=== PATIENT | female | born 1945 | race Caucasian/White ===

== ENCOUNTER 2018-11-10 05:36 | Day surgery (SDC) | payer OTHER ==
[2018-11-05 14:47] VITALS: BMI 27.1
[2018-11-10] MEDS ORDERED: oxyCODONE HCL 5 MG TABLET PO PRN (10:19)
[2018-11-10] MEDS ORDERED: ONDANSETRON 4 MG/2 ML VIAL IVPUSH PRN (10:19)
[2018-11-10] MEDS ORDERED: ACETAMINOPHEN 500 MG TABLET (FP) PO PRN (10:19)
[2018-11-10] MEDS ORDERED: LACTATED RINGERS SOLUTION 1,000 ML IV SCH (10:30)
[2018-11-10] MEDS ORDERED: LIDOCAINE HCL/PF 2% SDV 5ML VIAL ONE (10:40)
[2018-11-10] MEDS ORDERED: PROPOFOL 20 ML ONE (10:40)
[2018-11-10] MEDS ORDERED: MIDAZOLAM HCL 2 MG/2 ML SINGLE DOSE VIAL ONE (10:41)
[2018-11-10] MEDS ORDERED: KETOROLAC TROMETHAMINE 30 MG/1 ML VIAL ONE (11:28)
[2018-11-10] MEDS ORDERED: hydrALAZINE HCL 20 MG/ML VIAL IM ONE (11:53)
[2018-11-10] MEDS ORDERED: hydrALAZINE HCL 20 MG/ML VIAL IVPUSH ONE (11:53)
[2018-11-10] MEDS ORDERED: ACETAMINOPHEN INJECTION 100 ML IVPB ONE (12:27)
[2018-11-10] MEDS ORDERED: ACETAMINOPHEN 1000 MG/100 ML VIAL (NON FORMULARY) IVPB ONE (12:30)
[2018-11-10] MEDS ORDERED: ACETAMINOPHEN 1000 MG/100 ML VIAL (NON FORMULARY) IVPB PRN (13:19)
--- NOTE | 2018-11-10 13:27 | OP ---
Operative Note - Note: Operative Date: 11/10/18 Pre-Operative Diagnosis: Endometrial hyperpasia Operation: Hysteroscopy. HYsteroscopic myomectomy. Hysteroscopic lysis of adhesions. Suction DC Findings: endometrial adhesions endometrial polyp/myoma Post-Operative Diagnosis: Same as Pre-op Surgeon: Arely Johnson Anesthesia: General Estimated Blood Loss (mls): 20
[2018-11-10] MEDS ORDERED: ACETAMINOPHEN 325 MG TABLET (FP) PO PRN (13:28)
[2018-11-10] MEDS ORDERED: IBUPROFEN 400 MG TABLET (FP) PO PRN (13:28)
--- NOTE | 2018-11-10 13:28 | HP ---
History & Physical Update - History History: No Change - Physical Physical: No Change - Assessment Assessment: No Change - Plan Plan: No Change
[2018-11-10 16:24] VITALS: BP 132/61; PULSE 77; TEMP 97.8
--- NOTE | 2018-11-10 20:54 | OP ---
DATE OF OPERATION: 11/10/2018 PREOPERATIVE DIAGNOSIS: Endometrial hyperplasia. OPERATION: Hysteroscopic lysis of adhesions, hysteroscopy, and hysteroscopic myomectomy, also suction dilatation and curettage. POSTOPERATIVE DIAGNOSIS: Submucosal myoma. SURGEON: Arely Johnson MD ANESTHESIA: General. ANESTHESIOLOGIST: Emmy Carty MD PROCEDURE: Patient was taken to the operating room, placed in dorsal lithotomy position, prepped and draped in usual sterile fashion. A timeout was performed in accordance with hospital regulation. Speculum was placed in the vagina. Anterior lip of the cervix was grasped with single-tooth tenaculum. Cervix then dilated to accommodate the diagnostic hysteroscope. Visualization of the endometrial cavity revealed endometrial polyp, also uterine adhesions. Lysis of uterine adhesions was then performed, and a myoma was also removed using sharp technique. Suction D&C was then performed. Endometrial cavity appeared to be improved. All instruments were then removed. Patient had tolerated the procedure well. Estimated blood loss was 20 mL. ARELY JOHNSON M.D. AMALIA/[id number]
--- NOTE | 2018-11-11 17:09 | PATH ---
Surgical Pathology Report Patient Name: WAYNE SLATER [facility]. Rec. #: [id number] /Age/Gender: 1945 (Age: 73) / F Account: [id number] Location: [facility] SURGICAL Taken: 11/10/2018 Received: 11/10/2018 Reported: 11/11/2018 Physicians: Arely Johnson M.D. Specimen(s) Received A: ENDOMETRIAL CURETTINGS B: MYOMA Clinical History Endometrial hyperplasia, myoma and adhesions of uterus Final Diagnosis A. ENDOMETRIAL CURETTINGS, DILATION AND CURETTAGE: SCANT ATROPHIC ENDOMETRIUM ADMIXED WITH BLOOD. B. 'MYOMA'/ENDOMETRIAL POLYP, HYSTEROSCOPIC MYOMECTOMY: ENDOMETRIAL POLYP. Electronically Signed Francisca Jon M.D. Gross Description A. Received in formalin labeled "endometrial curettings," is a 1.0 x 0.9 x 0.2 cm aggregate of sullivan red soft tissue fragments. The formalin is filtered and the specimen is entirely submitted in one cassette. B. Received in formalin labeled "myoma," is a less than 1 g, 0.7 cm in greatest dimension sullivan soft tissue fragment. The specimen is submitted in toto in one cassette. 11/10/201811/10/2018
== END 2018-11-10 15:45 | disposition home or self-care (01) ==
LOC: JASU-SURG 05:36
PROVIDERS: ATTEND Obstetrics & Gynecology
PROC: 0UDB7ZX Extraction of Endometrium, Via Natural or Artificial Opening, Diagnostic (ICD-10-PCS; 2018-11-10)
PROC: 0UB98ZZ Excision of Uterus, Via Natural or Artificial Opening Endoscopic (ICD-10-PCS; principal; 2018-11-10 10:00)
PROC: 0UN98ZZ Release Uterus, Via Natural or Artificial Opening Endoscopic (ICD-10-PCS; 2018-11-10 10:00)
DX: D25.0 Submucous leiomyoma of uterus (principal); N85.6 Intrauterine synechiae
CPT/HCPCS: 82962; 88305-TC; 94760; J0131

== ENCOUNTER 2019-05-28 14:59 | Inpatient (IN) | payer OTHER ==
--- NOTE | 2019-05-28 15:17 | PDOC ---
Rapid Medical Evaluation Chief Complaint: Abnormal Lab Results (Outside) Time Seen by Provider: 05/28/19 15:11 Medical Evaluation: Allergies Allergy/AdvReac Type Severity Reaction Status Date / Time No Known Allergies Allergy Verified 05/28/19 15:05 05/28/19 15:12 I have performed a brief in-person evaluation of this patient. The patient presents with a chief complaint of: sent from PMD due to "abnormal blood" Pertinent physical exam findings: well appearing , complaints of chronic back pain , I have ordered the following: labs The patient will proceed to the ED for further evaluation. 05/28/19 15:14 05/28/19 15:21
[2019-05-28 16:30] LABS: EPI CELLS 1.2 /HPF (0-5/HPF); HYALINE CASTS 1 /lpf (0-8); URINE APPEARANCE CLEAR; URINE BACTERIA 63.8 /hpf (NEGATIVE); URINE BILIRUBIN NEGATIVE (NEGATIVE); URINE COLOR YELLOW; URINE GLUCOSE (UA) NEGATIVE (NEGATIVE); URINE KETONE NEGATIVE (NEGATIVE); URINE LEUK ESTERASE TRACE (NEGATIVE); URINE NITRITE NEGATIVE (NEGATIVE); URINE PROTEIN NEGATIVE (NEGATIVE); URINE RBC 1 /hpf (0-4); URINE UROBILINOGEN 0.2 mg/dL (0.2-1.0); URINE WBC 6 /hpf (0-5)
[2019-05-28 16:31] LABS: BASO % 0.7 % (0-2.0); EOS % 5.8 % (0-4.5); HEMATOCRIT 29.4 % (32.4-45.2); HEMOGLOBIN 9.6 GM/dL (10.7-15.3); LYMPH % 28.2 % (8-40); MCHC 32.6 g/dl (32.0-36.0); MEAN CELL VOLUME 85.9 fl (80-96); MEAN PLT VOLUME 7.8 fl (7.5-11.1); MONO % 14.5 % (3.8-10.2); NEUT % 50.8 % (42.8-82.8); PLATELET COUNT 225 K/MM3 (134-434); RBC 3.42 M/mm3 (3.60-5.2); RDW 15.3 % (11.6-15.6)
--- NOTE | 2019-05-28 16:43 | PDOC ---
History of Present Illness - General Chief Complaint: Abnormal Lab Results (Outside) Stated Complaint: SENT BY PCP Time Seen by Provider: 05/28/19 15:11 - History of Present Illness Initial Comments: 05/28/19 17:47 The patient is a 74 year old female with a history of HTN, HLD, DM who presents for evaluation of abnormal lab values. The patient reports that she was sent to the ED for further evaluation by her tire bladder maker Dr. Guerrero for abnormal outpatient labs. The patient states that she has been experiencing some dizziness but otherwise denies any other symptoms. Per Dr. Guerrero the patient was extremely hypercalcemic to 13 on an outpatient basis. The patient notes that she has had high calcium in the past, but has never been worked up for it. She otherwise denies fevers, chills, headache, SOB, chest pain, nausea , vomiting, abdominal pain, or changes with urination or bowel movements. Past History - Past Medical History Allergies/Adverse Reactions: Allergies Allergy/AdvReac Type Severity Reaction Status Date / Time No Known Allergies Allergy Verified 05/28/19 15:05 Home Medications: Ambulatory Orders Latanoprost 0.005% Eye Drops [Xalatan 0.005% Eye Drops -] 1 drop OU HS 01/11/14 Nebivolol HCl [Bystolic] 20 mg PO DAILY 01/11/14 Brinzolamide [Azopt] 1 drop OD BID 06/29/16 Clonidine HCl [Clonidine HCl ER] 0.1 mg PO BID 06/29/16 Valsartan [Diovan] 320 mg PO DAILY 09/17/16 Allopurinol [Zyloprim -] 100 mg PO DAILY 11/05/18 Potassium Citrate [Potassium Citrate ER] 15 meq PO BID 11/05/18 Cholecalciferol (Vitamin D3) [Vitamin D3 -] 50,000 iu PO DAILY 05/28/19 Ferrous Sulfate 325 mg PO DAILY 05/28/19 Gabapentin 100 mg PO TID 05/28/19 Glipizide 10 mg PO DAILY 05/28/19 Linagliptin [Tradjenta] 5 mg PO DAILY 05/28/19 Multivitamins [Tab-A-Vit -] 1 tab PO DAILY 05/28/19 Tramadol HCl 50 mg PO BID PRN 05/28/19 Anemia: No Asthma: No Cancer: No Cardiac Disorders: No CVA: No COPD: No CHF: No Dementia: No Diabetes: Yes (DIET CONTROLLED) GI Disorders: Yes (Acid Reflux) Disorders: No HTN: Yes Hypercholesterolemia: Yes Liver Disease: Yes Seizures: No Thyroid Disease: No - Surgical History Abdominal Surgery: No Cardiac Surgery: No Cholecystectomy: No Lung Surgery: No Neurologic Surgery: No Orthopedic Surgery: No - Suicide/Smoking/Psychosocial Hx Smoking History: Never smoked Have you smoked in the past 12 months: No Hx Alcohol Use: No Drug/Substance Use Hx: No Substance Use Type: None Hx Substance Use Treatment: No Review of Systems - Review of Systems Comments:: 05/28/19 17:49 Constitutional: No fevers, chills, fatigue, malaise HEENT: No Rhinorrhea, nasal congestion, visual changes Cardiovascular: No chest pain, syncope, palpitations, lightheadedness Respiratory: No Cough, SOB, Hemoptysis, Gastrointestinal: No Abdominal pain, Nausea, Vomiting, Constipation, Diarrhea, Melena Genitourinary: No Dysuria, Frequency, Urgency, Hesitancy, Hematuria, Flank pain Musculoskeletal: No Myalgia, arthralgia Skin: No rashes, itching, bruising, pallor Neurologic: Dizziness, No Headache, Numbness, Weakness, or Tingling Psychiatric: No Hallucinations. No SI or HI *Physical Exam - Vital Signs Last Vital Signs Temp Pulse Resp BP Pulse Ox 98.6 F 73 16 130/51 L 100 05/28/19 15:05 05/28/19 15:05 05/28/19 15:05 05/28/19 15:05 05/28/19 15:05 - Physical Exam Comments: 05/28/19 17:51 General Appearance: Nourished. No Apparent Distress HEENT: EOMI, ZACHERY. No Pharyngeal Erythema, Tonsillar Exudate, Tonsillar Erythema Neck: No Cervical Lymphadenopathy Respiratory/Chest: Lungs Clear, Normal Breath Sounds. No Crackles, Rales, Rhonchi, Wheezing Cardiovascular: Regular Rhythm, Regular Rate. No Murmur, Gallops, Rubs Gastrointestinal/Abdominal: Normal Bowel Sounds, Soft. No Guarding, Rebound, Tenderness Musculoskeletal: No CVA Tenderness Extremity: Normal Capillary Refill Integumentary: Normal Color, Dry, Warm Neurologic: tack cleaner II-XII NML intact, Fully Oriented, Alert, Normal Mood/Affect, Normal Response, Normal Reflexes. Heart Score/ECG Review #1 ECG reviewed & interpreted by me at: 18:16 General ECG Interpretation: Sinus Rhythm, Normal Rate, Normal Intervals, No acute ischemic changes 05/28/19 18:16 HR 62 SC 178 QRS 88 QTc 379 ED Treatment Course - LABORATORY CBC & Chemistry Diagram: 05/28/19 15:50 05/28/19 15:50 - ADDITIONAL ORDERS Additional order review: Laboratory Results 05/28/19 15:50 Urine Color Yellow Urine Appearance Clear Urine pH 7.0 Ur Specific [place] 1.010 Urine Protein Negative Urine Glucose (UA) Negative Urine Ketones Negative Urine Blood Negative Urine Nitrite Negative Urine Bilirubin Negative Urine Urobilinogen 0.2 Ur Leukocyte Esterase Trace Urine WBC (Auto) 6 Urine RBC (Auto) 1 Urine Casts (Auto) 1 U Epithel Cells (Auto) 1.2 Urine Bacteria (Auto) 63.8 05/28/19 15:50 RBC 3.42 L MCV 85.9 MCHC 32.6 RDW 15.3 MPV 7.8 D Neutrophils % 50.8 Lymphocytes % 28.2 D Monocytes % 14.5 H Eosinophils % 5.8 H Basophils % 0.7 Medical Decision Making - Medical Decision Making 05/28/19 17:58 The patient is a 74 year old female with a history of HTN, HLD, DM who presents for evaluation of abnormal lab values. Given the patient's history and physical exam, we will obtain a cbc, cmp, mag, phos, ua, chest plain film, ekg to evaluate further. CBC demonstrates a hgb of 9.6. CMP demonstrates a Calcium of 14 with a creatinine of 2.8. UA is unremarkable. Chest plain film does not demonstrate an acute process. We discussed the case with Dr. Guerrero who recommended IV fluids and Calcitonin. We discussed the case with Dr. Vogel with hematology who is aware of the case and will evaluate. The patient will require admission for further management. 05/28/19 18:16 We discussed the case with the admitting team who accepted the patient for admission. *DC/Admit/Observation/Transfer Diagnosis at time of Disposition: Hypercalcemia - Discharge Dispostion Condition at time of disposition: Stable Decision to Admit order: Yes - Referrals - Patient Instructions - Post Discharge Activity
[2019-05-28 16:47] LABS: INR 1.09 (0.83-1.09); PROTHROMBIN TIME (PATIENT) 12.9 SEC (9.7-13.0)
[2019-05-28 16:49] LABS: MAGNESIUM 2.2 mg/dL (1.8-2.4); PHOSPHOROUS 4.8 mg/dL (2.5-4.9)
[2019-05-28 16:56] LABS: ALBUMIN 3.5 g/dl (3.4-5.0); BILIRUBIN,TOTAL 0.2 mg/dL (0.2-1); BLOOD UREA NITROGEN 48.2 mg/dL (7-18); CREATININE 2.8 mg/dL (0.55-1.3); POTASSIUM 4.3 mmol/L (3.5-5.1)
[2019-05-28 16:58] LABS: CALCIUM 14.3 mg/dL (8.5-10.1)
[2019-05-28] MEDS ORDERED: SODIUM CHLORIDE 1,000 ML IV STA (17:24)
[2019-05-28] MEDS ORDERED: CALCITONIN - SALMON SYNTHETIC 400 UNIT/2 ML VIAL SQ ONE (17:45)
--- NOTE | 2019-05-28 17:54 | PDOC ---
Documentation entered by Marquise Ambriz SCRIBE, acting as scribe for Jen Beth DO. Jen Beth DO: This documentation has been prepared by the Pb armenta Daniel, SCRIBE, under my direction and personally reviewed by me in its entirety. I confirm that the documentation accurately reflects all work, treatment, procedures, and medical decision making performed by me. Attending Attestation - Resident Resident Name: Marquise Toribio - ED Attending Attestation I have performed the following: I have examined & evaluated the patient, The case was reviewed & discussed with the resident, I agree w/resident's findings & plan, Exceptions are as noted - HPI HPI: 05/28/19 18:09 The patient is a 74 year old female with a past medical history of HTN, HLD, and diabetes here today for evaluation of abnormal lab values. Patient was sent in for evaluation by Dr. Hernandez. As per Dr. Hernandez, the patient reports the patient had a calcium of 13. As per the patient, she has been hypercalcemic in the past and currently endorses some dizziness. Patient denies headache. Denies fever, chills. Denies chest pain, shortness of breath. Denies nausea, vomiting, diarrhea, abdominal pain. Allergies: NKA PCP: Taylor Kincaid Junior Estimator: Teena Hernandez - Physicial Exam PE: 05/28/19 18:09 Constitutional: Awake, alert, oriented. No acute distress. Head: Normocephalic. Atraumatic Eyes: PERRL. EOMI. Conjunctivae are not pale. ENT: +dry mucous membranes. Posterior pharynx without exudates or erythema. Uvula midline. Neck: Supple. Full ROM. No lymphadenopathy. Cardiovascular: Regular rate. Regular rhythm. S1, S2 regular. Distal pulses are 2+ and symmetric. Pulmonary/Chest: No evidence of respiratory distress. Clear to auscultation bilaterally No wheezing, rales or rhonchi. Abdominal: Soft and non-distended. There is no tenderness. No rebound, guarding or rigidity. No organomegaly. No palpable masses. Good bowel sounds. Back: No CVA tenderness. Musculoskeletal: No edema. No cyanosis. No clubbing. Full range of motion in all extremities. Nocalf tenderness. Radial/pedal pulses are intact and 2+ bilaterally Skin: Skin is warm and dry. No petechiae. No purpura. Neurological: Alert and oriented to person, place, and time. Cranial nerves II -XII are grossly intact. Normal speech. Strength is grossly symmetric. No sensory deficits. Psychiatric: Good eye contact. Normal interaction, affect and behavior. - Medical Decision Making 05/28/19 17:50 I, Dr. Jen Beth, DO, attest that this document has been prepared under my direction and personally reviewed by me in its entirety. I further attest, that it accurately reflects all work, treatment, procedures and medical decision -making performed by me. 05/28/19 17:50 a/p: 74yo female sent by Dr. Hernandez for elevated calcium on outpt labs -pt denies complaints other than constipation and lightheaded -no n/v/d -no flank pain -no cp/sob -no dysuria -will repeat labs, ekg, cxr -pt will need admission 05/28/19 17:52 resident discussed the case with Dr. Hernandez who recommends calcitonin and ivf resident discussed the case with Dr. Rondon who agrees with plan ivf ordered calcium 14.3 hemoglobin was 9 ckd microblog sent to [facility] covering Dr. kincaid overnight. 05/28/19 18:23 resident discussed the case with Dr. Das who accepts pt to service Heart Score/ECG Review - ECG Intrepretation Comment:: 05/28/19 18:23 sinus at 62, nl axis, nl interval, no acute st/t wave findings
--- NOTE | 2019-05-28 18:58 | HP ---
CHIEF COMPLAINT: hypercalcemia- sent from office for abnormal lab values HISTORY OF PRESENT ILLNESS: 74 yo woman with hypercalcemia sent in from clinic for evaluation. She has no symptoms and she feels well. She has had hypercalcemia for the last 2 years. Took prednisone rx by Dr. Galarza in the past for suspected- sarcoidosis? Allergies: NKA PCP: Taylor Kincaid Horse Stud Manager: Teena Hernandez ER course was notable for: (1) ekg (2) cxr (3) Recent Travel: no PAST MEDICAL HISTORY: HTN, HLD, DM, hypercalcemia- 3 years? sarcoidosis? PAST SURGICAL HISTORY: uterine fibroid resection? left forearm surgery s/p trauma. Social History: Smoking: no Alcohol: no Drugs: no Family History: breast cancer in half-sister Allergies No Known Allergies Allergy (Verified 05/28/19 15:05) HOME MEDICATIONS: Home Medications Medication Instructions Recorded Latanoprost 0.005% Eye Drops 1 drop OU HS 01/11/14 [Xalatan 0.005% Eye Drops -] Nebivolol HCl [Bystolic] 20 mg PO DAILY 01/11/14 Brinzolamide [Azopt] 1 drop OD BID 06/29/16 Clonidine HCl [Clonidine HCl ER] 0.1 mg PO BID 06/29/16 Valsartan [Diovan] 320 mg PO DAILY 09/17/16 Allopurinol [Zyloprim -] 100 mg PO DAILY 11/05/18 Potassium Citrate [Potassium 15 meq PO BID 11/05/18 Citrate ER] Cholecalciferol (Vitamin D3) 50,000 iu PO DAILY 05/28/19 [Vitamin D3 -] Ferrous Sulfate 325 mg PO DAILY 05/28/19 Gabapentin 100 mg PO TID 05/28/19 Glipizide 10 mg PO DAILY 05/28/19 Linagliptin [Tradjenta] 5 mg PO DAILY 05/28/19 Multivitamins [Tab-A-Vit -] 1 tab PO DAILY 05/28/19 Tramadol HCl 50 mg PO BID PRN 05/28/19 REVIEW OF SYSTEMS CONSTITUTIONAL: Absent: fever, chills, diaphoresis, generalized weakness, malaise, loss of appetite, weight change HEENT: Absent: rhinorrhea, nasal congestion, throat pain, throat swelling, difficulty swallowing, mouth swelling, ear pain, eye pain, visual changes CARDIOVASCULAR: Absent: chest pain, syncope, palpitations, irregular heart rate, lightheadedness , peripheral edema RESPIRATORY: Absent: cough, shortness of breath, dyspnea with exertion, orthopnea, wheezing, stridor, hemoptysis GASTROINTESTINAL: Absent: abdominal pain, abdominal distension, nausea, vomiting, diarrhea, constipation, melena, hematochezia GENITOURINARY: Absent: dysuria, frequency, urgency, hesitancy, hematuria, flank pain, genital pain MUSCULOSKELETAL: Absent: myalgia, arthralgia, joint swelling, back pain, neck pain SKIN: Absent: rash, itching, pallor HEMATOLOGIC/IMMUNOLOGIC: Absent: easy bleeding, easy bruising, lymphadenopathy, frequent infections ENDOCRINE: Absent: unexplained weight gain, unexplained weight loss, heat intolerance, cold intolerance NEUROLOGIC: Absent: headache, focal weakness or paresthesias, dizziness, unsteady gait, seizure, mental status changes, bladder or bowel incontinence PSYCHIATRIC: Absent: anxiety, depression, suicidal or homicidal ideation, hallucinations. PHYSICAL EXAMINATION Vital Signs - 24 hr 05/28/19 15:05 Temperature 98.6 F Pulse Rate 73 Respiratory 16 Rate Blood Pressure 130/51 L O2 Sat by Pulse 100 Oximetry (%) GENERAL: Awake, alert, and fully oriented, in no acute distress. HEAD: Normal with no signs of trauma. EYES: Pupils equal, round and reactive to light, extraocular movements intact, sclera anicteric, conjunctiva clear. No lid lag. EARS, NOSE, THROAT: Ears normal, nares patent, oropharynx clear without exudates. Moist mucous membranes. NECK: Normal range of motion, supple without lymphadenopathy, JVD, or masses. LUNGS: Breath sounds equal, clear to auscultation bilaterally. No wheezes, and no crackles. No accessory muscle use. HEART: Regular rate and rhythm, normal S1 and S2 without murmur, rub or gallop. ABDOMEN: Soft, nontender, not distended, normoactive bowel sounds, no guarding, no rebound, no masses. MUSCULOSKELETAL: Normal range of motion at all joints. No bony deformities or tenderness. No CVA tenderness. UPPER EXTREMITIES: 2+ pulses, warm, well-perfused. No cyanosis. No clubbing. No peripheral edema, left forearm scar s/p surgery LOWER EXTREMITIES: 2+ pulses, warm, well-perfused. No calf tenderness. No peripheral edema. NEUROLOGICAL: Cranial nerves II-XII intact. Normal speech. Normal gait. PSYCHIATRIC: Cooperative. Good eye contact. Appropriate mood and affect. SKIN: Warm, dry, normal turgor, no rashes or lesions noted, normal capillary refill. Laboratory Results - last 24 hr 05/28/19 05/28/19 05/28/19 15:50 15:50 15:50 WBC 5.0 RBC 3.42 L Hgb 9.6 L Hct 29.4 L D MCV 85.9 MCH 28.0 MCHC 32.6 RDW 15.3 Plt Count 225 MPV 7.8 D Absolute Neuts (auto) 2.5 Neutrophils % 50.8 Lymphocytes % 28.2 D Monocytes % 14.5 H Eosinophils % 5.8 H Basophils % 0.7 Nucleated RBC % 0 PT with INR 12.90 INR 1.09 Sodium 139 Potassium 4.3 Chloride 106 Carbon Dioxide 26 Anion Gap 8 BUN 48.2 H Creatinine 2.8 H Est GFR (CKD-EPI)AfAm 18.38 Est GFR (CKD-EPI)NonAf 15.86 Random Glucose 118 H Calcium 14.3 H* Phosphorus Magnesium Total Bilirubin 0.2 AST 29 ALT 42 Alkaline Phosphatase 92 Total Protein 7.0 Albumin 3.5 Urine Color Urine Appearance Urine pH Ur Specific Terry Urine Protein Urine Glucose (UA) Urine Ketones Urine Blood Urine Nitrite Urine Bilirubin Urine Urobilinogen Ur Leukocyte Esterase Urine WBC (Auto) Urine RBC (Auto) Urine Casts (Auto) U Epithel Cells (Auto) Urine Bacteria (Auto) 05/28/19 05/28/19 15:50 16:00 WBC RBC Hgb Hct MCV MCH MCHC RDW Plt Count MPV Absolute Neuts (auto) Neutrophils % Lymphocytes % Monocytes % Eosinophils % Basophils % Nucleated RBC % PT with INR INR Sodium Potassium Chloride Carbon Dioxide Anion Gap BUN Creatinine Est GFR (CKD-EPI)AfAm Est GFR (CKD-EPI)NonAf Random Glucose Calcium Phosphorus 4.8 Magnesium 2.2 Total Bilirubin AST ALT Alkaline Phosphatase Total Protein Albumin Urine Color Yellow Urine Appearance Clear Urine pH 7.0 Ur Specific Terry 1.010 Urine Protein Negative Urine Glucose (UA) Negative Urine Ketones Negative Urine Blood Negative Urine Nitrite Negative Urine Bilirubin Negative Urine Urobilinogen 0.2 Ur Leukocyte Esterase Trace Urine WBC (Auto) 6 Urine RBC (Auto) 1 Urine Casts (Auto) 1 U Epithel Cells (Auto) 1.2 Urine Bacteria (Auto) 63.8 CXR, ekg reviewed ASSESSMENT/PLAN: #Hypercalcemia about 14 -adjusted for albumin - asymptomatic- should r/o malignancy and hyperthyroidism. Multiple myeloma is high on differential since patient Has reported history of sarcoidosis which may also contribute to hypercalcemia. Less likely to be vit D intoxication. -admit to med/surg -iv fluid hydration -calcitonin injection x1 given -send free calcium, phosphate, vit D, calcitriol, pth levels, ptrh -consider parathyroid scan if elevated pth level -ct abdomen/pelvis, chest - no contrast due to renal failure -upep, spep, kappa/lambda free chains -heme/onc, renal eval- kidney biopsy? -monitor ca levels closely #LESVIA on CKD- unknown underlying cause- HTN/ DM? R/o multiple myeloma. -avoid nsaids -i/o -daily weights -renal u/s -gentle IV fluid hydration #HTN -c/w home dose nibivolol, clonidine -avoid arb due to renal failure #DM -novolog sliding scale -a1c -diabetic diet -heparin sc for dvt ppx Visit type - Emergency Visit Emergency Visit: Yes Care time: The patient presented to the Emergency Department on the above date and was hospitalized for further evaluation of their emergent condition. - New Patient This patient is new to me today: Yes Date on this admission: 05/28/19 - Critical Care Critical Care patient: No
[2019-05-28] MEDS ORDERED: SODIUM CHLORIDE 1,000 ML IV SCH (19:00)
[2019-05-28] MEDS ORDERED: PATIENT'S OWN MEDICATION (NON-FORMULARY) (Brinzolamide [Azopt] 1 DROP) OD SCH (22:00)
[2019-05-28] MEDS ORDERED: PATIENT'S OWN MEDICATION (NON-FORMULARY) (Clonidine Hcl [Clonidine Hcl Er] 0.1 MG) PO SCH (22:00)
--- NOTE | 2019-05-28 22:38 | CONSULT ---
Consult - text type - Consultation Consultation Note: Patient seen and examined The patient is a 74 year old female with a history of HTN, HLD, DM who presents for evaluation of abnormal lab values. The patient reports that she was sent to the ED for further evaluation by her computer graphics illustrator Dr. Hernandez for abnormal outpatient labs. The patient states that she has been experiencing some dizziness but otherwise denies any other symptoms. Per Dr. Hernandez the patient was extremely hypercalcemic to 13 on an outpatient basis. The patient notes that she has had high calcium in the past, but has never been worked up for it. She otherwise denies fevers, chills, headache, SOB, chest pain, nausea , vomiting, abdominal pain, or changes with urination or bowel movements. Denies loss of appetite/wt. loss PMH HTN Anemia DM Hypercholesterolemia Allergies/Adverse Reactions: Allergies Allergy/AdvReac Type Severity Reaction Status Date / Time No Known Allergies Allergy Verified 05/28/19 15:05 Home Medications: Ambulatory Orders Latanoprost 0.005% Eye Drops [Xalatan 0.005% Eye Drops -] 1 drop OU HS 01/11/14 Nebivolol HCl [Bystolic] 20 mg PO DAILY 01/11/14 Brinzolamide [Azopt] 1 drop OD BID 06/29/16 Clonidine HCl [Clonidine HCl ER] 0.1 mg PO BID 06/29/16 Valsartan [Diovan] 320 mg PO DAILY 09/17/16 Allopurinol [Zyloprim -] 100 mg PO DAILY 11/05/18 Potassium Citrate [Potassium Citrate ER] 15 meq PO BID 11/05/18 Cholecalciferol (Vitamin D3) [Vitamin D3 -] 50,000 iu PO DAILY 05/28/19 Ferrous Sulfate 325 mg PO DAILY 05/28/19 Gabapentin 100 mg PO TID 05/28/19 Glipizide 10 mg PO DAILY 05/28/19 Linagliptin [Tradjenta] 5 mg PO DAILY 05/28/19 Multivitamins [Tab-A-Vit -] 1 tab PO DAILY 05/28/19 Tramadol HCl 50 mg PO BID PRN 05/28/19 - Suicide/Smoking/Psychosocial Hx Smoking History: Never smoked - Vital Signs Last Vital Signs Temp Pulse Resp BP Pulse Ox 98.6 F 73 16 130/51 L 100 05/28/19 15:05 05/28/19 15:05 05/28/19 15:05 05/28/19 15:05 05/28/19 15:05 HEENT--nl Cor: RSR, No murmurs, No gallops Lungs: Clear to P&A Abd: Soft, Normal bowel sounds, Ext:No significant edema A/P The patient is a 74 year old female with a history of HTN, HLD, DM who presents for evaluation of hypercalcemia Relatively asymptomatic other than constipation Also with LESVIA Geting IV fluids/calcitonin will check PTH, w/u for malignancy
[2019-05-28] MEDS: HEPARIN NA (PORCINE) 5,000 UNITS/ML 1ML VIAL SQ SCH (22:58)
[2019-05-28] MEDS: INSULIN SLIDING SCALE (NOVOLOG) 1 VIAL SQ SCH (22:58)
[2019-05-28] MEDS: LATANOPROST 0.005% OPHTH SOLN 2.5ML BOTTLE OU SCH (22:58)
[2019-05-29] MEDS: INSULIN SLIDING SCALE (NOVOLOG) 1 VIAL SQ SCH ×5 (06:11→22:13)
[2019-05-29 09:29] LABS: ERYTHROCYTE SEDIMENTATION RATE 44 mm/hr (0-30)
[2019-05-29 09:33] LABS: POTASSIUM 4.3 mmol/L (3.5-5.1)
[2019-05-29 09:38] LABS: BLOOD UREA NITROGEN 45.8 mg/dL (7-18); CALCIUM 11.8 mg/dL (8.5-10.1); CREATININE 2.7 mg/dL (0.55-1.3); MAGNESIUM 2.1 mg/dL (1.8-2.4); POTASSIUM 4.3 mmol/L (3.5-5.1)
--- NOTE | 2019-05-29 09:38 | PN ---
Progress Note, Physician History of Present Illness: feels better no complaints - Current Medication List Current Medications: Active Medications Allopurinol (Zyloprim -) 100 mg PO DAILY [facility] Ferrous Sulfate (Feosol -) 325 mg PO DAILY [facility] Heparin Sodium (Porcine) (Heparin -) 5,000 unit SQ BID [facility] Last Admin: 05/28/19 22:58 Dose: 5,000 unit Sodium Chloride (Normal Saline -) 1,000 mls @ 75 mls/hr IV ASDIR [facility] Last Admin: 05/28/19 19:37 Dose: 75 mls/hr Insulin Aspart (Novolog Vial Sliding Scale -) 1 vial SQ ACHS [facility]; Protocol Last Admin: 05/29/19 06:11 Dose: Not Given Latanoprost (Xalatan 0.005% Eye Drops -) 1 drop OU HS [facility] Last Admin: 05/28/19 22:58 Dose: Not Given Nebivolol (Bystolic -) 20 mg PO DAILY [facility] Non-Formulary Medication (Brinzolamide [Azopt]) 1 drop OD BID [facility] Non-Formulary Medication (Clonidine Hcl [Clonidine Hcl Er]) 0.1 mg PO BID [facility] - Objective Vital Signs: Vital Signs Temperature 98.8 F 05/29/19 05:47 Pulse Rate 75 05/29/19 05:47 Respiratory Rate 20 05/29/19 05:47 Blood Pressure 112/72 05/29/19 05:47 O2 Sat by Pulse Oximetry (%) 96 05/28/19 22:09 Cardiovascular: Yes: Regular Rate and Rhythm Respiratory: Yes: Regular, CTA Bilaterally Gastrointestinal: Yes: Normal Bowel Sounds, Soft Labs: INR, PTT INR 1.09 (0.83-1.09) 05/28/19 15:50 Problem List - Problems (1) Hypercalcemia Assessment/Plan: - asymptomatic- -r/o malignancy and hyperthyroidism. Multiple myeloma - sarcoidosis which may also contribute to hypercalcemia. -iv fluid hydration -calcitonin injection x1 given -send free calcium, phosphate, vit D, calcitriol, pth levels, ptrh -consider parathyroid scan if elevated pth level -ct abdomen/pelvis, chest - no contrast due to renal failure -upep, spep, kappa/lambda free chains -heme/onc, renal eval- kidney biopsy? -monitor ca levels closely Code(s): E83.52 - HYPERCALCEMIA (2) CKD (chronic kidney disease) Assessment/Plan: -avoid nsaids -i/o -daily weights -renal u/s -gentle IV fluid hydration Code(s): N18.9 - CHRONIC KIDNEY DISEASE, UNSPECIFIED Qualifiers: Chronic kidney disease stage: stage 3 (moderate) Qualified Code(s): N18.3 - Chronic kidney disease, stage 3 (moderate) (3) Diabetes Assessment/Plan: -novolog sliding scale -a1c -diabetic diet Code(s): E11.9 - TYPE 2 DIABETES MELLITUS WITHOUT COMPLICATIONS Qualifiers: Diabetes mellitus type: type 2 (4) HTN (hypertension) Assessment/Plan: -c/w home dose nibivolol, clonidine -avoid arb due to renal failure Code(s): I10 - ESSENTIAL (PRIMARY) HYPERTENSION Qualifiers: Hypertension type: secondary to other renal disorders Qualified Code(s): I15.1 - Hypertension secondary to other renal disorders
[2019-05-29 10:01] LABS: HEMATOCRIT 30.6 % (32.4-45.2); HEMOGLOBIN 9.8 GM/dL (10.7-15.3); MCH 27.6 pg (25.7-33.7); MEAN CELL VOLUME 86.1 fl (80-96); MEAN PLT VOLUME 8.4 fl (7.5-11.1); PLATELET COUNT 204 K/MM3 (134-434); RBC 3.56 M/mm3 (3.60-5.2); RDW 15.5 % (11.6-15.6)
[2019-05-29] MEDS ORDERED: PT OWN MED DRAWER 7, Y5N ONE ×2 (10:20→21:13)
[2019-05-29] MEDS: FERROUS SO4 325 MG TABLET (FP) PO SCH (10:22)
[2019-05-29] MEDS: ALLOPURINOL 100 MG TABLET (FP) PO SCH (10:23)
[2019-05-29] MEDS: HEPARIN NA (PORCINE) 5,000 UNITS/ML 1ML VIAL SQ SCH ×3 (10:23→22:13)
[2019-05-29] MEDS: NEBIVOLOL 10 MG TABLET (FP) PO SCH (11:12)
--- NOTE | 2019-05-29 11:52 | EKG ---
Test Reason : Blood Pressure : / mmHG Vent. Rate : 062 BPM Atrial Rate : 062 BPM P-R Int : 178 ms QRS Dur : 088 ms QT Int : 374 ms P-R-T Axes : 022 026 028 degrees QTc Int : 379 ms NORMAL SINUS RHYTHM NORMAL ECG WHEN COMPARED WITH ECG OF 10-JUN-2015 13:45, NO SIGNIFICANT CHANGE WAS FOUND Confirmed by GREG BOBO MD ([id number]) on 05/29/2019 11:52:22 AM Referred By: Confirmed By:GREG BOBO MD
--- NOTE | 2019-05-29 15:29 | CONSULT ---
Consult Consult Specialty:: Nephrology Reason for Consultation:: CKD - History of Present Illness Chief Complaint: sent in for hypercalcemia History of Present Illness: Pt is a 74 year old female with pmhx of hypercalcemia, ckd, htn and DM who I saw in the office yesterday for CKD. Her labs showed a calcium of 13.1 so I sent her to the hospital. She says that she has knows about the hypercalcemia for several years. She denies fevers or chills. She denies dysuria or hematuria. She is awake and alert. She has had some weight loss. - History Source History Provided By: Patient - Past Medical History Cardio/Vascular: Yes: HTN Pulmonary: Yes: Other (sarcoidosis) Renal/: Yes: Renal Inusuff Musculoskeletal: Yes: Osteoarthritis Endocrine: Yes: Diabetes Mellitus - Alcohol/Substance Use Hx Alcohol Use: No - Smoking History Smoking history: Never smoked Have you smoked in the past 12 months: No Home Medications - Allergies Allergies/Adverse Reactions: Allergies Allergy/AdvReac Type Severity Reaction Status Date / Time No Known Allergies Allergy Verified 05/28/19 15:05 - Home Medications Home Medications: Ambulatory Orders Latanoprost 0.005% Eye Drops [Xalatan 0.005% Eye Drops -] 1 drop OU HS 01/11/14 Nebivolol HCl [Bystolic] 20 mg PO DAILY 01/11/14 Brinzolamide [Azopt] 1 drop OD BID 06/29/16 Clonidine HCl [Clonidine HCl ER] 0.1 mg PO BID 06/29/16 Valsartan [Diovan] 320 mg PO DAILY 09/17/16 Allopurinol [Zyloprim -] 100 mg PO DAILY 11/05/18 Potassium Citrate [Potassium Citrate ER] 15 meq PO BID 11/05/18 Cholecalciferol (Vitamin D3) [Vitamin D3 -] 50,000 iu PO DAILY 05/28/19 Ferrous Sulfate 325 mg PO DAILY 05/28/19 Gabapentin 100 mg PO TID 05/28/19 Glipizide 10 mg PO DAILY 05/28/19 Linagliptin [Tradjenta] 5 mg PO DAILY 05/28/19 Multivitamins [Tab-A-Vit -] 1 tab PO DAILY 05/28/19 Tramadol HCl 50 mg PO BID PRN 05/28/19 Family Disease History - Family Disease History Family History: Denies Review of Systems - Review of Systems Constitutional: reports: No Symptoms Eyes: reports: No Symptoms HENT: reports: No Symptoms Neck: reports: No Symptoms Cardiovascular: reports: No Symptoms Respiratory: reports: No Symptoms Gastrointestinal: reports: No Symptoms Genitourinary: reports: No Symptoms Musculoskeletal: reports: No Symptoms Integumentary: reports: No Symptoms Neurological: reports: No Symptoms Endocrine: reports: No Symptoms Hematology/Lymphatic: reports: No Symptoms Psychiatric: reports: No Symptoms Physical Exam Vital Signs: Vital Signs Temperature 98.8 F 05/29/19 05:47 Pulse Rate 75 05/29/19 05:47 Respiratory Rate 20 05/29/19 05:47 Blood Pressure 112/72 05/29/19 05:47 O2 Sat by Pulse Oximetry (%) 96 05/28/19 22:09 Constitutional: Yes: Calm Eyes: Yes: Conjunctiva Clear HENT: Yes: Atraumatic Neck: Yes: Supple Cardiovascular: Yes: S1, S2 Respiratory: Yes: CTA Bilaterally Gastrointestinal: Yes: Soft Renal/: Yes: WNL Musculoskeletal: Yes: WNL Edema: No Neurological: Yes: Oriented Psychiatric: Yes: Oriented Labs: CBC, BMP 05/29/19 05:49 05/29/19 06:00 Laboratory Tests 06/11/15 11/05/18 05/28/19 09:00 14:16 08:45 Hgb Sodium Potassium BUN Creatinine 1.6 H Calcium 9.4 11.8 H Urine Protein Urine Blood U Free [place] Light Ch U Free Lambda Light Ch U Free [place]/Lambda 24 NASIM M-Lambert Pending Free [place] LC, Quant Free Lambda LC, Quant Free [place]/Lambda Ratio 05/28/19 05/28/19 05/28/19 15:50 15:50 15:50 Hgb 9.6 L Sodium Potassium BUN Creatinine 2.8 H Calcium 14.3 H* Urine Protein Negative Urine Blood Negative U Free [place] Light Ch U Free Lambda Light Ch U Free [place]/Lambda 24 NASIM M-Lambert Free [place] LC, Quant Free Lambda LC, Quant Free [place]/Lambda Ratio 05/29/19 05/29/19 05/29/19 00:05 05:49 06:00 Hgb 9.8 L Sodium 140 Potassium 4.3 BUN 45.8 H Creatinine 2.7 H Calcium 11.8 H Urine Protein Urine Blood U Free [place] Light Ch Pending U Free Lambda Light Ch Pending U Free [place]/Lambda 24 Pending NASIM M-Lambert Free [place] LC, Quant Pending Free Lambda LC, Quant Pending Free [place]/Lambda Ratio Pending Imaging - Results Chest X-ray: Report Reviewed Problem List - Problems (1) Hypercalcemia Code(s): E83.52 - HYPERCALCEMIA (2) CKD (chronic kidney disease) Code(s): N18.9 - CHRONIC KIDNEY DISEASE, UNSPECIFIED Qualifiers: Chronic kidney disease stage: stage 3 (moderate) Qualified Code(s): N18.3 - Chronic kidney disease, stage 3 (moderate) (3) Diabetes Code(s): E11.9 - TYPE 2 DIABETES MELLITUS WITHOUT COMPLICATIONS Qualifiers: Diabetes mellitus type: type 2 (4) HTN (hypertension) Code(s): I10 - ESSENTIAL (PRIMARY) HYPERTENSION Qualifiers: Hypertension type: secondary to other renal disorders Qualified Code(s): I15.1 - Hypertension secondary to other renal disorders Assessment/Plan Current Medications Generic Name Dose Route Start Last Admin Trade Name Christianoq PRN Reason Stop Dose Admin Allopurinol 100 mg 05/29/19 10:00 05/29/19 10:23 Zyloprim - PO 100 mg DAILY [facility] Administration Ferrous Sulfate 325 mg 05/29/19 10:00 05/29/19 10:22 Feosol - PO 325 mg DAILY [facility] Administration Heparin Sodium (Porcine) 5,000 unit 05/28/19 22:00 05/29/19 10:23 Heparin - SQ 5,000 unit BID [facility] Administration Sodium Chloride 1,000 mls @ 75 mls/hr 05/28/19 19:00 05/28/19 19:37 Normal Saline - IV 75 mls/hr ASDIR [facility] Administration Insulin Aspart 1 vial 05/28/19 22:00 05/29/19 06:11 Novolog Vial Sliding Scale - SQ Not Given ACHS [facility] Protocol Latanoprost 1 drop 05/28/19 22:00 05/28/19 22:58 Xalatan 0.005% Eye Drops - OU Not Given HS [facility] Nebivolol 20 mg 05/29/19 10:00 05/29/19 11:12 Bystolic - PO 20 mg DAILY [facility] Administration Non-Formulary Medication 1 drop 05/28/19 22:00 Brinzolamide [Azopt] OD BID [facility] Non-Formulary Medication 0.1 mg 05/28/19 22:00 Clonidine Hcl [Clonidine Hcl Er] PO BID [facility] Impression 1. hypercalcemia 2. CKD 3. DM 4. HTN 5. arthritis 6. nephrolithiasis Plan - calcium is improving with fluids - did give a dose of calcitonin yesterday - increase saline to 100 cc - can give lasix of she developed overload - discussed with heme onc - pt had a pth of 10 as outpt (appropriately low) - follow spep and light chains - ua is negative for blood or protein, which is not very typical for myeloma - follow ct scans
[2019-05-29] MEDS: SODIUM CHLORIDE 1,000 ML IV SCH (15:30)
--- NOTE | 2019-05-29 16:28 | PN ---
Progress Note (short form) - Note Progress Note: Patient seen and examined Dr. Rondon saw patient 05/28 On Iv hydration and received one injection of calcitonin Calcium trending downward Will order skeletal survey to evaluate bones , but has 3 criteria of CRAB. Hypercalcemia, nc/nc anemia, and renal disease Light chains in serum and urine have been ordered . Needs serum and urine immunofixation and quantitative immunoglobulins Continue hydration. Last Vital Signs Temp Pulse Resp BP Pulse Ox 97.5 F L 75 20 112/72 96 05/29/19 15:47 05/29/19 05:47 05/29/19 05:47 05/29/19 05:47 05/28/19 22:09 HEENT: ANDREIA, EOM Intact Oropharynx: No thrush, No mucositis Neck: Supple Nodes: Without adenopathy Breasts: Without masses Cor: RSR, No murmurs, No gallops Lungs: Clear to P&A Abd: Soft, Normal bowel sounds, No organomegaly Ext:No significant edema Skin: No rashes, Integument intact Ballard catheter CBC, BMP 05/29/19 05:49 05/29/19 06:00 Current Medications Generic Name Dose Route Start Last Admin Trade Name Freq PRN Reason Stop Dose Admin Allopurinol 100 mg 05/29/19 10:00 05/29/19 10:23 Zyloprim - PO 100 mg DAILY [facility] Administration Ferrous Sulfate 325 mg 05/29/19 10:00 05/29/19 10:22 Feosol - PO 325 mg DAILY [facility] Administration Heparin Sodium (Porcine) 5,000 unit 05/28/19 22:00 05/29/19 10:23 Heparin - SQ 5,000 unit BID [facility] Administration Sodium Chloride 1,000 mls @ 100 mls/hr 05/29/19 15:30 Normal Saline - IV ASDIR [facility] Insulin Aspart 1 vial 05/28/19 22:00 05/29/19 06:11 Novolog Vial Sliding Scale - SQ Not Given ACHS [facility]PL[facility] Protocol Latanoprost 1 drop 05/28/19 22:00 05/28/19 22:58 Xalatan 0.005% Eye Drops - OU Not Given HS [facility] Nebivolol 20 mg 05/29/19 10:00 05/29/19 11:12 Bystolic - PO 20 mg DAILY [facility] Administration Non-Formulary Medication 1 drop 05/28/19 22:00 Brinzolamide [Azopt] OD BID [facility] Non-Formulary Medication 0.1 mg 05/28/19 22:00 Clonidine Hcl [Clonidine Hcl Er] PO BID [facility] Hypercalcemia with 3/4 CRAB criteria for myeloma. Await light chain analysis To evaluate bones with skeletal survey. On hydration Ca++ improved - to maintain
[2019-05-29] MEDS: LATANOPROST 0.005% OPHTH SOLN 2.5ML BOTTLE OU SCH (22:00)
[2019-05-30] MEDS: INSULIN SLIDING SCALE (NOVOLOG) 1 VIAL SQ SCH ×4 (06:41→22:47)
[2019-05-30 08:05] LABS: ALBUMIN 3.3 g/dl (3.4-5.0); BILIRUBIN,TOTAL 0.2 mg/dL (0.2-1); BLOOD UREA NITROGEN 48.7 mg/dL (7-18); CALCIUM 11.5 mg/dL (8.5-10.1); CREATININE 2.9 mg/dL (0.55-1.3); POTASSIUM 4.3 mmol/L (3.5-5.1); TOT PROT 6.9 g/dl (6.4-8.2)
[2019-05-30] MEDS: HEPARIN NA (PORCINE) 5,000 UNITS/ML 1ML VIAL SQ SCH ×2 (09:30→22:02)
[2019-05-30] MEDS: ALLOPURINOL 100 MG TABLET (FP) PO SCH (09:30)
[2019-05-30] MEDS: FERROUS SO4 325 MG TABLET (FP) PO SCH (09:30)
[2019-05-30] MEDS ORDERED: PT OWN MED DRAWER 7, Y5N ONE (09:31)
[2019-05-30] MEDS: NEBIVOLOL 10 MG TABLET (FP) PO SCH (09:33)
--- NOTE | 2019-05-30 13:04 | PN ---
Progress Note, Physician - Current Medication List Current Medications: Active Medications Allopurinol (Zyloprim -) 100 mg PO DAILY [facility] Last Admin: 05/30/19 09:30 Dose: 100 mg Calcitonin (Miacalcin Injection -) 260 unit SQ BID [facility] Ferrous Sulfate (Feosol -) 325 mg PO DAILY [facility] Last Admin: 05/30/19 09:30 Dose: 325 mg Heparin Sodium (Porcine) (Heparin -) 5,000 unit SQ BID [facility] Last Admin: 05/30/19 09:30 Dose: 5,000 unit Sodium Chloride (Normal Saline -) 1,000 mls @ 100 mls/hr IV ASDIR [facility] Last Admin: 05/29/19 15:30 Dose: 100 mls/hr Insulin Aspart (Novolog Vial Sliding Scale -) 1 vial SQ ACHS [facility]; Protocol Last Admin: 05/30/19 11:52 Dose: Not Given Latanoprost (Xalatan 0.005% Eye Drops -) 1 drop OU HS [facility] Last Admin: 05/29/19 22:00 Dose: 1 drop Nebivolol (Bystolic -) 20 mg PO DAILY [facility] Last Admin: 05/30/19 09:33 Dose: 20 mg Non-Formulary Medication (Brinzolamide [Azopt]) 1 drop OD BID [facility] Non-Formulary Medication (Clonidine Hcl [Clonidine Hcl Er]) 0.1 mg PO BID [facility] - Objective Vital Signs: Vital Signs Temperature 98.4 F 05/30/19 05:55 Pulse Rate 68 05/30/19 05:55 Respiratory Rate 20 05/30/19 05:55 Blood Pressure 166/73 05/30/19 05:55 O2 Sat by Pulse Oximetry (%) 96 05/29/19 21:00 Cardiovascular: Yes: S1, S2 Respiratory: Yes: Regular, CTA Bilaterally Gastrointestinal: Yes: Normal Bowel Sounds, Soft Labs: CBC, BMP 05/29/19 05:49 05/30/19 06:40 INR, PTT INR 1.09 (0.83-1.09) 05/28/19 15:50 Problem List - Problems (1) Hypercalcemia Assessment/Plan: - asymptomatic- -r/o malignancy and hyperthyroidism. Multiple myeloma - sarcoidosis which may also contribute to hypercalcemia. -iv fluid hydration -calcitonin injection x1 given -send free calcium, phosphate, vit D, calcitriol, pth levels, ptrh -consider parathyroid scan if elevated pth level -ct abdomen/pelvis, chest - no contrast due to renal failure -upep, spep, kappa/lambda free chains -heme/onc, renal eval- kidney biopsy? -monitor ca levels closely Code(s): E83.52 - HYPERCALCEMIA (2) CKD (chronic kidney disease) Assessment/Plan: -avoid nsaids -i/o -daily weights -renal u/s -gentle IV fluid hydration Code(s): N18.9 - CHRONIC KIDNEY DISEASE, UNSPECIFIED Qualifiers: Chronic kidney disease stage: stage 3 (moderate) Qualified Code(s): N18.3 - Chronic kidney disease, stage 3 (moderate) (3) Diabetes Assessment/Plan: -novolog sliding scale -a1c -diabetic diet Code(s): E11.9 - TYPE 2 DIABETES MELLITUS WITHOUT COMPLICATIONS Qualifiers: Diabetes mellitus type: type 2 (4) HTN (hypertension) Assessment/Plan: -c/w home dose nibivolol, clonidine -avoid arb due to renal failure Code(s): I10 - ESSENTIAL (PRIMARY) HYPERTENSION Qualifiers: Hypertension type: secondary to other renal disorders Qualified Code(s): I15.1 - Hypertension secondary to other renal disorders
[2019-05-30] MEDS: CALCITONIN - SALMON SYNTHETIC 400 UNIT/2 ML VIAL SQ SCH (13:43)
[2019-05-30] MEDS: NYSTATIN 100,000 UNIT/GM TOPICAL CREAM 15 GM TUBE TP SCH ×2 (13:43→22:47)
[2019-05-30 13:53] LABS: HYALINE CASTS 1 /lpf (0-8); PH,URINE 6.5 (5.0-8.0); URINE APPEARANCE CLEAR; URINE BACTERIA 5.2 /hpf (NEGATIVE); URINE BILIRUBIN NEGATIVE (NEGATIVE); URINE COLOR YELLOW; URINE GLUCOSE (UA) NEGATIVE (NEGATIVE); URINE KETONE NEGATIVE (NEGATIVE); URINE LEUK ESTERASE 1+ (NEGATIVE); URINE NITRITE NEGATIVE (NEGATIVE); URINE PROTEIN TRACE (NEGATIVE); URINE RBC 271 /hpf (0-4); URINE UROBILINOGEN 0.2 mg/dL (0.2-1.0); URINE WBC 6 /hpf (0-5)
--- NOTE | 2019-05-30 14:56 | PN ---
Progress Note, Physician History of Present Illness: Pt seen and examined at bedside. She is awake and alert. She denies shortness of breath. - Current Medication List Current Medications: Active Medications Allopurinol (Zyloprim -) 100 mg PO DAILY [facility] Last Admin: 05/30/19 09:30 Dose: 100 mg Calcitonin (Miacalcin Injection -) 260 unit SQ Q12H [facility] Stop: 06/01/19 01:01 Last Admin: 05/30/19 13:43 Dose: 260 unit Ferrous Sulfate (Feosol -) 325 mg PO DAILY [facility] Last Admin: 05/30/19 09:30 Dose: 325 mg Heparin Sodium (Porcine) (Heparin -) 5,000 unit SQ BID [facility] Last Admin: 05/30/19 09:30 Dose: 5,000 unit Sodium Chloride (Normal Saline -) 1,000 mls @ 100 mls/hr IV ASDIR [facility] Last Admin: 05/29/19 15:30 Dose: 100 mls/hr Insulin Aspart (Novolog Vial Sliding Scale -) 1 vial SQ ACHS [facility]; Protocol Last Admin: 05/30/19 11:52 Dose: Not Given Latanoprost (Xalatan 0.005% Eye Drops -) 1 drop OU HS [facility] Last Admin: 05/29/19 22:00 Dose: 1 drop Nebivolol (Bystolic -) 20 mg PO DAILY [facility] Last Admin: 05/30/19 09:33 Dose: 20 mg Non-Formulary Medication (Brinzolamide [Azopt]) 1 drop OD BID [facility] Non-Formulary Medication (Clonidine Hcl [Clonidine Hcl Er]) 0.1 mg PO BID [facility] Nystatin (Mycostatin Cream -) 1 applic TP BID [facility] Last Admin: 05/30/19 13:43 Dose: 1 appful - Objective Vital Signs: Vital Signs Temperature 98.4 F 05/30/19 09:00 Pulse Rate 68 05/30/19 09:00 Respiratory Rate 20 05/30/19 09:00 Blood Pressure 166/73 05/30/19 09:00 O2 Sat by Pulse Oximetry (%) 98 05/30/19 09:00 Constitutional: Yes: Calm Eyes: Yes: Conjunctiva Clear HENT: Yes: Atraumatic Neck: Yes: Supple Cardiovascular: Yes: S1, S2 Respiratory: Yes: CTA Bilaterally Gastrointestinal: Yes: Soft Genitourinary: Yes: WNL Musculoskeletal: Yes: WNL Edema: No Neurological: Yes: Oriented Psychiatric: Yes: Oriented Labs: CBC, BMP 05/29/19 05:49 05/30/19 06:40 INR, PTT INR 1.09 (0.83-1.09) 05/28/19 15:50 Problem List - Problems (1) Hypercalcemia Code(s): E83.52 - HYPERCALCEMIA (2) CKD (chronic kidney disease) Code(s): N18.9 - CHRONIC KIDNEY DISEASE, UNSPECIFIED Qualifiers: Chronic kidney disease stage: stage 3 (moderate) Qualified Code(s): N18.3 - Chronic kidney disease, stage 3 (moderate) (3) Diabetes Code(s): E11.9 - TYPE 2 DIABETES MELLITUS WITHOUT COMPLICATIONS Qualifiers: Diabetes mellitus type: type 2 (4) HTN (hypertension) Code(s): I10 - ESSENTIAL (PRIMARY) HYPERTENSION Qualifiers: Hypertension type: secondary to other renal disorders Qualified Code(s): I15.1 - Hypertension secondary to other renal disorders Assessment/Plan Current Medications Generic Name Dose Route Start Last Admin Trade Name Joe PRN Reason Stop Dose Admin Allopurinol 100 mg 05/29/19 10:00 05/30/19 09:30 Zyloprim - PO 100 mg DAILY [facility] Administration Calcitonin 260 unit 05/30/19 13:00 05/30/19 13:43 Miacalcin Injection - SQ 06/01/19 01:01 260 unit Q12H [facility] Administration Ferrous Sulfate 325 mg 05/29/19 10:00 05/30/19 09:30 Feosol - PO 325 mg DAILY [facility] Administration Heparin Sodium (Porcine) 5,000 unit 05/28/19 22:00 05/30/19 09:30 Heparin - SQ 5,000 unit BID [facility] Administration Sodium Chloride 1,000 mls @ 100 mls/hr 05/29/19 15:30 05/29/19 15:30 Normal Saline - IV 100 mls/hr ASDIR [facility] Administration Insulin Aspart 1 vial 05/28/19 22:00 05/30/19 11:52 Novolog Vial Sliding Scale - SQ Not Given ACHS [facility] Protocol Latanoprost 1 drop 05/28/19 22:00 05/29/19 22:00 Xalatan 0.005% Eye Drops - OU 1 drop HS [facility] Administration Nebivolol 20 mg 05/29/19 10:00 05/30/19 09:33 Bystolic - PO 20 mg DAILY [facility] Administration Non-Formulary Medication 1 drop 05/28/19 22:00 Brinzolamide [Azopt] OD BID [facility] Non-Formulary Medication 0.1 mg 05/28/19 22:00 Clonidine Hcl [Clonidine Hcl Er] PO BID [facility] Nystatin 1 applic 05/30/19 13:15 05/30/19 13:43 Mycostatin Cream - TP 1 appful BID [facility] Administration Impression 1. hypercalcemia 2. CKD 3. DM 4. HTN 5. arthritis 6. nephrolithiasis Plan - calcium improving - cont fluids - lasix of she develops overload - oncology workup in progress - cont calcitonin
[2019-05-30] MEDS: SODIUM CHLORIDE 1,000 ML IV SCH (15:50)
--- NOTE | 2019-05-30 17:29 | PN ---
Progress Note, Physician History of Present Illness: No new events. Denies pain. - Current Medication List Current Medications: Active Medications Allopurinol (Zyloprim -) 100 mg PO DAILY [facility] Last Admin: 05/30/19 09:30 Dose: 100 mg Calcitonin (Miacalcin Injection -) 260 unit SQ Q12H [facility] Stop: 06/01/19 01:01 Last Admin: 05/30/19 13:43 Dose: 260 unit Clonidine (Catapres -) 0.1 mg PO BID [facility] Ferrous Sulfate (Feosol -) 325 mg PO DAILY [facility] Last Admin: 05/30/19 09:30 Dose: 325 mg Heparin Sodium (Porcine) (Heparin -) 5,000 unit SQ BID [facility] Last Admin: 05/30/19 09:30 Dose: 5,000 unit Sodium Chloride (Normal Saline -) 1,000 mls @ 100 mls/hr IV ASDIR [facility] Last Admin: 05/30/19 15:50 Dose: 100 mls/hr Insulin Aspart (Novolog Vial Sliding Scale -) 1 vial SQ ACHS [facility]; Protocol Last Admin: 05/30/19 17:06 Dose: 2 unit Latanoprost (Xalatan 0.005% Eye Drops -) 1 drop OU HS [facility] Last Admin: 05/29/19 22:00 Dose: 1 drop Losartan Potassium (Cozaar -) 100 mg PO DAILY [facility] Nebivolol (Bystolic -) 20 mg PO DAILY [facility] Last Admin: 05/30/19 09:33 Dose: 20 mg Non-Formulary Medication (Brinzolamide [Azopt]) 1 drop OD BID [facility] Nystatin (Mycostatin Cream -) 1 applic TP BID [facility] Last Admin: 05/30/19 13:43 Dose: 1 appful - Objective Vital Signs: Vital Signs Temperature 98.2 F 05/30/19 15:42 Pulse Rate 76 05/30/19 15:42 Respiratory Rate 20 05/30/19 15:42 Blood Pressure 160/114 H 05/30/19 15:42 O2 Sat by Pulse Oximetry (%) 98 05/30/19 09:00 Constitutional: Yes: No Distress, Calm Cardiovascular: Yes: Regular Rate and Rhythm Respiratory: Yes: Regular, CTA Bilaterally Gastrointestinal: Yes: Soft. No: Tenderness Edema: No Labs: CBC, BMP 05/29/19 05:49 05/30/19 06:40 INR, PTT INR 1.09 (0.83-1.09) 05/28/19 15:50 Assessment/Plan 74F with HTN, HLD, DM sent for admission by nephrology for Ca 14.3. (was seeing renal for the first time, creatinine 2.9). Only symptom seemed to be constipation. Creatinine was last 1.6 and calcium 11.8 in 11/2018. On IVF and s /p calcitonin, improving Calcium 11.5 today. Also has normocytic anemia. Normal LDH and protein. Awaiting w/u including PTH, PTHRP, SPEP/FLC
[2019-05-30] MEDS: cloNIDine HCL 0.1 MG TABLET PO SCH (22:02)
[2019-05-30] MEDS: LATANOPROST 0.005% OPHTH SOLN 2.5ML BOTTLE OU SCH (22:47)
[2019-05-31] MEDS: CALCITONIN - SALMON SYNTHETIC 400 UNIT/2 ML VIAL SQ SCH ×2 (01:30→13:40)
[2019-05-31] MEDS ORDERED: PT OWN MED DRAWER 7, Y5N ONE ×3 (01:30→13:43)
[2019-05-31] MEDS: SODIUM CHLORIDE 1,000 ML IV SCH ×2 (02:02→17:53)
[2019-05-31] MEDS: INSULIN SLIDING SCALE (NOVOLOG) 1 VIAL SQ SCH ×4 (06:53→21:44)
[2019-05-31 07:35] LABS: BILIRUBIN,TOTAL 0.2 mg/dL (0.2-1); BLOOD UREA NITROGEN 49.4 mg/dL (7-18); CREATININE 2.6 mg/dL (0.55-1.3); POTASSIUM 4.2 mmol/L (3.5-5.1); TOT PROT 6.2 g/dl (6.4-8.2)
[2019-05-31] MEDS: LOSARTAN POTASSIUM 50 MG TABLET (FP) PO SCH (09:36)
[2019-05-31] MEDS: cloNIDine HCL 0.1 MG TABLET PO SCH ×2 (09:36→21:45)
[2019-05-31] MEDS: ALLOPURINOL 100 MG TABLET (FP) PO SCH (09:36)
[2019-05-31] MEDS: FERROUS SO4 325 MG TABLET (FP) PO SCH (09:36)
[2019-05-31] MEDS: NEBIVOLOL 10 MG TABLET (FP) PO SCH (09:36)
[2019-05-31] MEDS: NYSTATIN 100,000 UNIT/GM TOPICAL CREAM 15 GM TUBE TP SCH ×2 (09:37→21:44)
[2019-05-31] MEDS: HEPARIN NA (PORCINE) 5,000 UNITS/ML 1ML VIAL SQ SCH ×2 (09:38→21:44)
--- NOTE | 2019-05-31 11:36 | PN ---
Progress Note, Physician - Current Medication List Current Medications: Active Medications Allopurinol (Zyloprim -) 100 mg PO DAILY [facility] Last Admin: 05/31/19 09:36 Dose: 100 mg Calcitonin (Miacalcin Injection -) 260 unit SQ Q12H [facility] Stop: 06/01/19 01:01 Last Admin: 05/31/19 01:30 Dose: 260 unit Clonidine (Catapres -) 0.1 mg PO BID [facility] Last Admin: 05/31/19 09:36 Dose: 0.1 mg Ferrous Sulfate (Feosol -) 325 mg PO DAILY [facility] Last Admin: 05/31/19 09:36 Dose: 325 mg Heparin Sodium (Porcine) (Heparin -) 5,000 unit SQ BID [facility] Last Admin: 05/31/19 09:38 Dose: 5,000 unit Sodium Chloride (Normal Saline -) 1,000 mls @ 100 mls/hr IV ASDIR [facility] Last Admin: 05/31/19 02:02 Dose: 100 mls/hr Insulin Aspart (Novolog Vial Sliding Scale -) 1 vial SQ ACHS [facility]; Protocol Last Admin: 05/31/19 06:53 Dose: Not Given Latanoprost (Xalatan 0.005% Eye Drops -) 1 drop OU HS [facility] Last Admin: 05/30/19 22:47 Dose: 1 drop Losartan Potassium (Cozaar -) 100 mg PO DAILY [facility] Last Admin: 05/31/19 09:36 Dose: 100 mg Nebivolol (Bystolic -) 20 mg PO DAILY [facility] Last Admin: 05/31/19 09:36 Dose: 20 mg Non-Formulary Medication (Brinzolamide [Azopt]) 1 drop OD BID [facility] Nystatin (Mycostatin Cream -) 1 applic TP BID [facility] Last Admin: 05/31/19 09:37 Dose: 1 applic - Objective Vital Signs: Vital Signs Temperature 98.8 F 05/31/19 02:00 Pulse Rate 73 05/31/19 02:00 Respiratory Rate 18 05/31/19 02:00 Blood Pressure 149/76 05/31/19 02:00 O2 Sat by Pulse Oximetry (%) 98 05/30/19 21:00 Cardiovascular: Yes: S1, S2 Respiratory: Yes: Regular, CTA Bilaterally Gastrointestinal: Yes: Normal Bowel Sounds, Soft Labs: CBC, BMP 05/29/19 05:49 05/31/19 06:40 INR, PTT INR 1.09 (0.83-1.09) 05/28/19 15:50 Problem List - Problems (1) Hypercalcemia Assessment/Plan: - asymptomatic- -r/o malignancy and hyperthyroidism. Multiple myeloma - sarcoidosis which may also contribute to hypercalcemia. -iv fluid hydration -calcitonin injection x1 given -send free calcium, phosphate, vit D, calcitriol, pth levels, ptrh -consider parathyroid scan if elevated pth level -ct abdomen/pelvis, chest - no contrast due to renal failure -upep, spep, kappa/lambda free chains -heme/onc, renal eval- kidney biopsy? -monitor ca levels closely Code(s): E83.52 - HYPERCALCEMIA (2) CKD (chronic kidney disease) Assessment/Plan: -avoid nsaids -i/o -daily weights -renal u/s -gentle IV fluid hydration Code(s): N18.9 - CHRONIC KIDNEY DISEASE, UNSPECIFIED Qualifiers: Chronic kidney disease stage: stage 3 (moderate) Qualified Code(s): N18.3 - Chronic kidney disease, stage 3 (moderate) (3) Diabetes Assessment/Plan: -novolog sliding scale -a1c -diabetic diet Code(s): E11.9 - TYPE 2 DIABETES MELLITUS WITHOUT COMPLICATIONS Qualifiers: Diabetes mellitus type: type 2 (4) HTN (hypertension) Assessment/Plan: -c/w home dose nibivolol, clonidine -avoid arb due to renal failure Code(s): I10 - ESSENTIAL (PRIMARY) HYPERTENSION Qualifiers: Hypertension type: secondary to other renal disorders Qualified Code(s): I15.1 - Hypertension secondary to other renal disorders (5) Bilateral low back pain without sciatica Assessment/Plan: review old studies Code(s): M54.5 - LOW BACK PAIN
[2019-05-31] MEDS ORDERED: INSULIN (NOVOLOG) ASPART 100 UNITS/ML 10ML VIAL ONE (11:43)
--- NOTE | 2019-05-31 11:54 | CON.CARD ---
Consult Consult Specialty:: Cardiology Referred by:: Nia Ann Reason for Consultation:: htn - History of Present Illness Chief Complaint: high calcium History of Present Illness: 74 year old female with a pmhx of htn, hld, and dm sent in from doctor's office for elevated Ca of 13. Noted to be hypertensive here. Patient denies any complaints except some constipation. No chest pain, sob, or palpitations. No pnd, orthopnea, or edema. Some dizziness noted on admission. - History Source History Provided By: Patient, Medical Record - Past Medical History Cardio/Vascular: Yes: HTN Pulmonary: Yes: Other (sarcoidosis) Renal/: Yes: Renal Inusuff Musculoskeletal: Yes: Osteoarthritis Endocrine: Yes: Diabetes Mellitus - Alcohol/Substance Use Hx Alcohol Use: No - Smoking History Smoking history: Never smoked Have you smoked in the past 12 months: No Home Medications - Allergies Allergies/Adverse Reactions: Allergies Allergy/AdvReac Type Severity Reaction Status Date / Time No Known Allergies Allergy Verified 05/28/19 15:05 - Home Medications Home Medications: Ambulatory Orders Latanoprost 0.005% Eye Drops [Xalatan 0.005% Eye Drops -] 1 drop OU HS 01/11/14 Nebivolol HCl [Bystolic] 20 mg PO DAILY 01/11/14 Brinzolamide [Azopt] 1 drop OD BID 06/29/16 Clonidine HCl [Clonidine HCl ER] 0.1 mg PO BID 06/29/16 Valsartan [Diovan] 320 mg PO DAILY 09/17/16 Allopurinol [Zyloprim -] 100 mg PO DAILY 11/05/18 Potassium Citrate [Potassium Citrate ER] 15 meq PO BID 11/05/18 Cholecalciferol (Vitamin D3) [Vitamin D3 -] 50,000 iu PO DAILY 05/28/19 Ferrous Sulfate 325 mg PO DAILY 05/28/19 Gabapentin 100 mg PO TID 05/28/19 Glipizide 10 mg PO DAILY 05/28/19 Linagliptin [Tradjenta] 5 mg PO DAILY 05/28/19 Multivitamins [Tab-A-Vit -] 1 tab PO DAILY 05/28/19 Tramadol HCl 50 mg PO BID PRN 05/28/19 Vital Signs: Vital Signs Temperature 98.8 F 05/31/19 02:00 Pulse Rate 73 05/31/19 02:00 Respiratory Rate 18 05/31/19 02:00 Blood Pressure 149/76 05/31/19 02:00 O2 Sat by Pulse Oximetry (%) 98 05/30/19 21:00 Constitutional: Yes: No Distress Neck: Yes: Supple Respiratory: Yes: CTA Bilaterally Gastrointestinal: Yes: Normal Bowel Sounds, Soft Cardiovascular: Yes: WNL JVD: No Carotid Bruit: No PMI: Non-Displaced Heart Sounds: Yes: S1, S2 Murmur: No: Systolic Murmur Edema: No - Other Data Labs, Other Data: CBC, BMP 05/29/19 05:49 05/31/19 06:40 INR, PTT INR 1.09 (0.83-1.09) 05/28/19 15:50 Imaging - Results Chest X-ray: Report Reviewed EKG: Image Reviewed Problem List - Problems (1) HTN (hypertension) Code(s): I10 - ESSENTIAL (PRIMARY) HYPERTENSION Qualifiers: Hypertension type: secondary to other renal disorders Qualified Code(s): I15.1 - Hypertension secondary to other renal disorders Assessment/Plan 74 year old female with a pmhx of htn, hld, and dm sent in from doctor's office for elevated Ca of 13. Noted to be hypertensive here. Patient denies any complaints except some constipation. No chest pain, sob, or palpitations. No pnd, orthopnea, or edema. Some dizziness noted on admission. 1) HTN -EKG sinus rhythm at 70bpm, nl axis, nl st segments -On losartan, nebivolol, and clondine. BP seems to be much better today Continue to monitor as getting IVF's. If needed for bp rising than can increase her clonidine dose. Will sign off.
--- NOTE | 2019-05-31 15:45 | PN ---
Progress Note, Physician History of Present Illness: Pt seen and examined at bedside. She is awake and alert. Her BP was elevated yesterday. Losartan was added. - Current Medication List Current Medications: Active Medications Allopurinol (Zyloprim -) 100 mg PO DAILY [facility] Last Admin: 05/31/19 09:36 Dose: 100 mg Calcitonin (Miacalcin Injection -) 260 unit SQ Q12H [facility] Stop: 06/01/19 01:01 Last Admin: 05/31/19 13:40 Dose: 260 unit Clonidine (Catapres -) 0.1 mg PO BID [facility] Last Admin: 05/31/19 09:36 Dose: 0.1 mg Ferrous Sulfate (Feosol -) 325 mg PO DAILY [facility] Last Admin: 05/31/19 09:36 Dose: 325 mg Heparin Sodium (Porcine) (Heparin -) 5,000 unit SQ BID [facility] Last Admin: 05/31/19 09:38 Dose: 5,000 unit Sodium Chloride (Normal Saline -) 1,000 mls @ 100 mls/hr IV ASDIR [facility] Last Admin: 05/31/19 02:02 Dose: 100 mls/hr Insulin Aspart (Novolog Vial Sliding Scale -) 1 vial SQ ACHS [facility]; Protocol Last Admin: 05/31/19 11:48 Dose: 2 unit Latanoprost (Xalatan 0.005% Eye Drops -) 1 drop OU HS [facility] Last Admin: 05/30/19 22:47 Dose: 1 drop Losartan Potassium (Cozaar -) 100 mg PO DAILY [facility] Last Admin: 05/31/19 09:36 Dose: 100 mg Nebivolol (Bystolic -) 20 mg PO DAILY [facility] Last Admin: 05/31/19 09:36 Dose: 20 mg Non-Formulary Medication (Brinzolamide [Azopt]) 1 drop OD BID [facility] Nystatin (Mycostatin Cream -) 1 applic TP BID [facility] Last Admin: 05/31/19 09:37 Dose: 1 applic - Objective Vital Signs: Vital Signs Temperature 98 F 05/31/19 14:00 Pulse Rate 72 05/31/19 14:00 Respiratory Rate 18 05/31/19 14:00 Blood Pressure 161/85 05/31/19 14:00 O2 Sat by Pulse Oximetry (%) 99 05/31/19 09:00 Constitutional: Yes: Calm Eyes: Yes: Conjunctiva Clear HENT: Yes: Atraumatic Neck: Yes: Supple Cardiovascular: Yes: S1, S2 Respiratory: Yes: CTA Bilaterally Gastrointestinal: Yes: Normal Bowel Sounds, Soft Genitourinary: Yes: WNL Musculoskeletal: Yes: WNL Edema: No Neurological: Yes: Oriented Psychiatric: Yes: Oriented Labs: CBC, BMP 05/29/19 05:49 05/31/19 06:40 INR, PTT INR 1.09 (0.83-1.09) 05/28/19 15:50 Problem List - Problems (1) Hypercalcemia Code(s): E83.52 - HYPERCALCEMIA (2) CKD (chronic kidney disease) Code(s): N18.9 - CHRONIC KIDNEY DISEASE, UNSPECIFIED Qualifiers: Chronic kidney disease stage: stage 3 (moderate) Qualified Code(s): N18.3 - Chronic kidney disease, stage 3 (moderate) (3) Diabetes Code(s): E11.9 - TYPE 2 DIABETES MELLITUS WITHOUT COMPLICATIONS Qualifiers: Diabetes mellitus type: type 2 (4) HTN (hypertension) Code(s): I10 - ESSENTIAL (PRIMARY) HYPERTENSION Qualifiers: Hypertension type: secondary to other renal disorders Qualified Code(s): I15.1 - Hypertension secondary to other renal disorders Assessment/Plan Current Medications Generic Name Dose Route Start Last Admin Trade Name Freq PRN Reason Stop Dose Admin Allopurinol 100 mg 05/29/19 10:00 05/31/19 09:36 Zyloprim - PO 100 mg DAILY NIKI Administration Calcitonin 260 unit 05/30/19 13:00 05/31/19 13:40 Miacalcin Injection - SQ 06/01/19 01:01 260 unit Q12H [facility]IKI Administration Clonidine 0.1 mg 05/30/19 22:00 05/31/19 09:36 Catapres - PO 0.1 mg BID NIKI Administration Ferrous Sulfate 325 mg 05/29/19 10:00 05/31/19 09:36 Feosol - PO 325 mg DAILY [facility]I Administration Heparin Sodium (Porcine) 5,000 unit 05/28/19 22:00 05/31/19 09:38 Heparin - SQ 5,000 unit BID [facility]IKI Administration Sodium Chloride 1,000 mls @ 100 mls/hr 05/29/19 15:30 05/31/19 02:02 Normal Saline - IV 100 mls/hr ASDIR NIKI Administration Insulin Aspart 1 vial 05/28/19 22:00 05/31/19 11:48 Novolog Vial Sliding Scale - SQ 2 unit ACHS [facility]IKI Administration Protocol Latanoprost 1 drop 05/28/19 22:00 05/30/19 22:47 Xalatan 0.005% Eye Drops - OU 1 drop HS [facility]I Administration Losartan Potassium 100 mg 05/31/19 10:00 05/31/19 09:36 Cozaar - PO 100 mg DAILY [facility] Administration Nebivolol 20 mg 05/29/19 10:00 05/31/19 09:36 Bystolic - PO 20 mg DAILY [facility] Administration Non-Formulary Medication 1 drop 05/28/19 22:00 Brinzolamide [Azopt] OD BID [facility] Nystatin 1 applic 05/30/19 13:15 05/31/19 09:37 Mycostatin Cream - TP 1 applic BID [facility] Administration Impression 1. hypercalcemia 2. CKD 3. DM 4. HTN 5. arthritis 6. nephrolithiasis Plan - calcium is improving - will decrease rate of fluids - oncology follow up - workup in progress - monitor bp on losartan and monitor renal function
--- NOTE | 2019-05-31 19:43 | PN ---
Progress Note, Physician History of Present Illness: No new events. No complaints. - Current Medication List Current Medications: Active Medications Allopurinol (Zyloprim -) 100 mg PO DAILY [facility] Last Admin: 05/31/19 09:36 Dose: 100 mg Calcitonin (Miacalcin Injection -) 260 unit SQ Q12H [facility] Stop: 06/01/19 01:01 Last Admin: 05/31/19 13:40 Dose: 260 unit Clonidine (Catapres -) 0.1 mg PO BID [facility] Last Admin: 05/31/19 09:36 Dose: 0.1 mg Ferrous Sulfate (Feosol -) 325 mg PO DAILY [facility] Last Admin: 05/31/19 09:36 Dose: 325 mg Heparin Sodium (Porcine) (Heparin -) 5,000 unit SQ BID [facility] Last Admin: 05/31/19 09:38 Dose: 5,000 unit Sodium Chloride (Normal Saline -) 1,000 mls @ 50 mls/hr IV ASDIR [facility] Last Admin: 05/31/19 17:53 Dose: 50 mls/hr Insulin Aspart (Novolog Vial Sliding Scale -) 1 vial SQ ACHS [facility]; Protocol Last Admin: 05/31/19 17:34 Dose: Not Given Latanoprost (Xalatan 0.005% Eye Drops -) 1 drop OU HS [facility] Last Admin: 05/30/19 22:47 Dose: 1 drop Losartan Potassium (Cozaar -) 100 mg PO DAILY [facility] Last Admin: 05/31/19 09:36 Dose: 100 mg Nebivolol (Bystolic -) 20 mg PO DAILY [facility] Last Admin: 05/31/19 09:36 Dose: 20 mg Non-Formulary Medication (Brinzolamide [Azopt]) 1 drop OD BID [facility] Nystatin (Mycostatin Cream -) 1 applic TP BID [facility] Last Admin: 05/31/19 09:37 Dose: 1 applic - Objective Vital Signs: Vital Signs Temperature 98 F 05/31/19 14:00 Pulse Rate 72 05/31/19 14:00 Respiratory Rate 18 05/31/19 14:00 Blood Pressure 161/85 05/31/19 14:00 O2 Sat by Pulse Oximetry (%) 99 05/31/19 09:00 Constitutional: Yes: No Distress, Calm Eyes: Yes: Conjunctiva Clear Respiratory: Yes: WNL, Regular, CTA Bilaterally Gastrointestinal: Yes: WNL, Soft Edema: No Labs: CBC, BMP 05/29/19 05:49 05/31/19 06:40 INR, PTT INR 1.09 (0.83-1.09) 05/28/19 15:50 Assessment/Plan 74F with HTN, HLD, DM sent for admission by nephrology for Ca 14.3. (was seeing renal for the first time, creatinine 2.9). Only symptom seemed to be constipation. Creatinine was last 1.6 and calcium 11.8 in 11/2018. On IVF and s /p calcitonin, Calcium 10 today Also has normocytic anemia. Normal LDH and protein. PTH suppressed. Metastatic survey without e/o disease. Awaiting w/u including PTHRP, SPEP/FLC, vit D studies
[2019-05-31] MEDS: LATANOPROST 0.005% OPHTH SOLN 2.5ML BOTTLE OU SCH (22:00)
[2019-06-01] MEDS ORDERED: PT OWN MED DRAWER 7, Y5N ONE ×2 (00:38→21:57)
[2019-06-01] MEDS: CALCITONIN - SALMON SYNTHETIC 400 UNIT/2 ML VIAL SQ SCH (01:00)
[2019-06-01] MEDS ORDERED: cloNIDine HCL 0.1 MG TABLET PO ONE (02:00)
--- NOTE | 2019-06-01 03:04 | HOSP ---
Subjective - Review of Symptoms Events since last encounter: patient noted with elevated BP 180/80, HR: 68 given clonidine 0.1 mg at 10 pom , rechecked BP around 1 am 180/78 Hr 64, upon exam patient denies headache, sob, cp give an extra dose of clonidine 0.1 mg and recheck bp in 2-3 hours. General: No: Chills, Night Sweats, Fatigue, Malaise, Appetite, Other HEENT: No: Head Aches, Visual Changes, Eye Pain, Ear Pain, Dysphasia, Sinus Congestion, Post Nasal Drip, Sore Throat, Other Pulmonary: No: Dyspnea, Cough, Pleuritic Chest Pain, Other Cardiovascular: No: Chest Pain, Palpitations, Orthopnea, Paroxysmal Noc. Dyspnea , Edema, Light Headedness, Other Gastrointestinal: No: Nausea, NOSYM, Vomiting, Abdominal Pain, Diarrhea, Constipation, Melena, Hematochezia, Other Genitourinary: No: Dysuria, NOSYM, Frequency, Incontinence, Hematuria, Retention , Other Musculoskeletal: No: No Symptoms, Back Pain, Crepitus, Decreased ROM, Extremity Pain, Joint Pain, Joint Swelling, Muscle Pain, Muscle Cramps, Muscle Weakness, Other Neurological: No: Weakness, Numbness, Incoordination, Change in speech, Confusion, Seizures, Other Physical Examination Vital Signs: Vital Signs Temperature 97.8 F 05/31/19 23:00 Pulse Rate 63 05/31/19 23:00 Respiratory Rate 16 05/31/19 23:00 Blood Pressure 183/77 H 05/31/19 23:00 O2 Sat by Pulse Oximetry (%) 99 05/31/19 21:00 Constitutional: Yes: No Distress Eyes: Yes: WNL, Conjunctiva Clear, EOM Intact HENT: Yes: WNL, Atraumatic, Normocephalic Neck: Yes: WNL, Supple, Trachea Midline Cardiovascular: Yes: WNL Respiratory: Yes: WNL, Regular, CTA Bilaterally Gastrointestinal: Yes: WNL, Normal Bowel Sounds, Soft Extremities: Yes: WNL Edema: No Integumentary: Yes: WNL Neurological: Yes: Alert, Oriented Labs: CBC, BMP 05/29/19 05:49 05/31/19 06:40 Hospitalist Encounter Assessment: HTN - given clonidine 01. mg x1 dose - recheck bp 2-3 hours - if complain of headache, sob/cp notify [employer]/MD
[2019-06-01] MEDS: INSULIN SLIDING SCALE (NOVOLOG) 1 VIAL SQ SCH ×4 (06:19→22:07)
[2019-06-01 07:47] LABS: ALBUMIN 3.3 g/dl (3.4-5.0); BILIRUBIN,TOTAL 0.6 mg/dL (0.2-1); BLOOD UREA NITROGEN 43.8 mg/dL (7-18); CALCIUM 10.5 mg/dL (8.5-10.1); CREATININE 2.3 mg/dL (0.55-1.3); POTASSIUM 4.1 mmol/L (3.5-5.1)
[2019-06-01] MEDS: NEBIVOLOL 10 MG TABLET (FP) PO SCH (10:07)
[2019-06-01] MEDS: cloNIDine HCL 0.1 MG TABLET PO SCH ×2 (10:07→22:07)
[2019-06-01] MEDS: FERROUS SO4 325 MG TABLET (FP) PO SCH (10:07)
[2019-06-01] MEDS: LOSARTAN POTASSIUM 50 MG TABLET (FP) PO SCH (10:07)
[2019-06-01] MEDS: ALLOPURINOL 100 MG TABLET (FP) PO SCH (10:08)
[2019-06-01] MEDS: HEPARIN NA (PORCINE) 5,000 UNITS/ML 1ML VIAL SQ SCH ×2 (10:08→22:07)
[2019-06-01] MEDS: NYSTATIN 100,000 UNIT/GM TOPICAL CREAM 15 GM TUBE TP SCH ×2 (10:08→22:07)
[2019-06-01] MEDS: SODIUM CHLORIDE 1,000 ML IV SCH (10:12)
--- NOTE | 2019-06-01 10:48 | PN ---
Progress Note, Physician Chief Complaint: Hypercalcemia History of Present Illness: Previous notes and events reviewed awake and alert NAD Ca 10.5 denies complaints of chest pain or SOB noted with elevated BP overnight - Current Medication List Current Medications: Active Medications Allopurinol (Zyloprim -) 100 mg PO DAILY [facility] Last Admin: 06/01/19 10:08 Dose: 100 mg Clonidine (Catapres -) 0.1 mg PO BID [facility] Last Admin: 06/01/19 10:07 Dose: 0.1 mg Ferrous Sulfate (Feosol -) 325 mg PO DAILY [facility] Last Admin: 06/01/19 10:07 Dose: 325 mg Heparin Sodium (Porcine) (Heparin -) 5,000 unit SQ BID [facility] Last Admin: 06/01/19 10:08 Dose: 5,000 unit Sodium Chloride (Normal Saline -) 1,000 mls @ 50 mls/hr IV ASDIR [facility] Last Admin: 06/01/19 10:12 Dose: 50 mls/hr Insulin Aspart (Novolog Vial Sliding Scale -) 1 vial SQ [facility]; Protocol Last Admin: 06/01/19 06:19 Dose: Not Given Latanoprost (Xalatan 0.005% Eye Drops -) 1 drop OU HS [facility] Last Admin: 05/31/19 22:00 Dose: 1 drop Losartan Potassium (Cozaar -) 100 mg PO DAILY [facility] Last Admin: 06/01/19 10:07 Dose: 100 mg Nebivolol (Bystolic -) 20 mg PO DAILY [facility] Last Admin: 06/01/19 10:07 Dose: 20 mg Non-Formulary Medication (Brinzolamide [Azopt]) 1 drop OD BID [facility] Nystatin (Mycostatin Cream -) 1 applic TP BID [facility] Last Admin: 06/01/19 10:08 Dose: 1 applic - Objective Vital Signs: Vital Signs Temperature 97.8 F 05/31/19 23:00 Pulse Rate 63 05/31/19 23:00 Respiratory Rate 16 05/31/19 23:00 Blood Pressure 183/77 H 05/31/19 23:00 O2 Sat by Pulse Oximetry (%) 99 05/31/19 21:00 Constitutional: Yes: No Distress, Calm Eyes: Yes: Conjunctiva Clear HENT: Yes: Atraumatic Cardiovascular: Yes: Regular Rate and Rhythm Respiratory: Yes: Regular, CTA Bilaterally Gastrointestinal: Yes: Normal Bowel Sounds, Soft Musculoskeletal: Yes: WNL Extremities: Yes: WNL Edema: No Neurological: Yes: Alert, Oriented Psychiatric: Yes: Alert, Oriented Labs: CBC, BMP 05/29/19 05:49 06/01/19 06:44 INR, PTT INR 1.09 (0.83-1.09) 05/28/19 15:50 Problem List - Problems (1) Hypercalcemia Assessment/Plan: -Ca 10.5 -renal and oncology on board -Metastatic series shows no blastic or lytic changes -IV hydration -pending oncology workup -Bone scan pending Code(s): E83.52 - HYPERCALCEMIA (2) CKD (chronic kidney disease) Assessment/Plan: -BUN/Cr 43.8/2.3 -renal on board -Renal US shows negative exam -IV hydration Code(s): N18.9 - CHRONIC KIDNEY DISEASE, UNSPECIFIED Qualifiers: Chronic kidney disease stage: stage 3 (moderate) Qualified Code(s): N18.3 - Chronic kidney disease, stage 3 (moderate) (3) Diabetes Assessment/Plan: -BGM ACHS -ISS -diabetic/low Na diet Code(s): E11.9 - TYPE 2 DIABETES MELLITUS WITHOUT COMPLICATIONS Qualifiers: Diabetes mellitus type: type 2 (4) Glaucoma Assessment/Plan: -Azopt Code(s): H40.9 - UNSPECIFIED GLAUCOMA (5) HTN (hypertension) Assessment/Plan: -Clonidine, Bystolic, Losartan -low Na diabetic diet Code(s): I10 - ESSENTIAL (PRIMARY) HYPERTENSION Qualifiers: Hypertension type: secondary to other renal disorders Qualified Code(s): I15.1 - Hypertension secondary to other renal disorders Assessment/Plan see problem list dvt ppx
[2019-06-01 16:15] LABS: KAPPA LAMBDA RATIO URIN 10.58 (2.04-10.37)
--- NOTE | 2019-06-01 16:37 | PN ---
Progress Note, Physician History of Present Illness: Pt seen and examined at bedside. She is awake and alert. She denies shortness of breath. - Current Medication List Current Medications: Active Medications Allopurinol (Zyloprim -) 100 mg PO DAILY [facility] Last Admin: 06/01/19 10:08 Dose: 100 mg Clonidine (Catapres -) 0.1 mg PO BID [facility] Last Admin: 06/01/19 10:07 Dose: 0.1 mg Ferrous Sulfate (Feosol -) 325 mg PO DAILY [facility] Last Admin: 06/01/19 10:07 Dose: 325 mg Heparin Sodium (Porcine) (Heparin -) 5,000 unit SQ BID [facility] Last Admin: 06/01/19 10:08 Dose: 5,000 unit Sodium Chloride (Normal Saline -) 1,000 mls @ 50 mls/hr IV ASDIR [facility] Last Admin: 06/01/19 10:12 Dose: 50 mls/hr Insulin Aspart (Novolog Vial Sliding Scale -) 1 vial SQ [facility]; Protocol Last Admin: 06/01/19 14:31 Dose: Not Given Latanoprost (Xalatan 0.005% Eye Drops -) 1 drop OU HS [facility] Last Admin: 05/31/19 22:00 Dose: 1 drop Losartan Potassium (Cozaar -) 100 mg PO DAILY [facility] Last Admin: 06/01/19 10:07 Dose: 100 mg Nebivolol (Bystolic -) 20 mg PO DAILY [facility] Last Admin: 06/01/19 10:07 Dose: 20 mg Non-Formulary Medication (Brinzolamide [Azopt]) 1 drop OD BID [facility] Nystatin (Mycostatin Cream -) 1 applic TP BID [facility] Last Admin: 06/01/19 10:08 Dose: 1 applic - Objective Vital Signs: Vital Signs Temperature 97.8 F 05/31/19 23:00 Pulse Rate 70 06/01/19 11:00 Respiratory Rate 18 06/01/19 11:00 Blood Pressure 148/77 06/01/19 11:00 O2 Sat by Pulse Oximetry (%) 99 05/31/19 21:00 Constitutional: Yes: Calm Eyes: Yes: Conjunctiva Clear HENT: Yes: Atraumatic Neck: Yes: Supple Cardiovascular: Yes: S1, S2 Respiratory: Yes: CTA Bilaterally Gastrointestinal: Yes: Soft Genitourinary: Yes: WNL Musculoskeletal: Yes: WNL Edema: No Neurological: Yes: Oriented Psychiatric: Yes: Oriented Labs: CBC, BMP 05/29/19 05:49 06/01/19 06:44 INR, PTT INR 1.09 (0.83-1.09) 05/28/19 15:50 Problem List - Problems (1) Hypercalcemia Code(s): E83.52 - HYPERCALCEMIA (2) CKD (chronic kidney disease) Code(s): N18.9 - CHRONIC KIDNEY DISEASE, UNSPECIFIED Qualifiers: Chronic kidney disease stage: stage 3 (moderate) Qualified Code(s): N18.3 - Chronic kidney disease, stage 3 (moderate) (3) Diabetes Code(s): E11.9 - TYPE 2 DIABETES MELLITUS WITHOUT COMPLICATIONS Qualifiers: Diabetes mellitus type: type 2 (4) HTN (hypertension) Code(s): I10 - ESSENTIAL (PRIMARY) HYPERTENSION Qualifiers: Hypertension type: secondary to other renal disorders Qualified Code(s): I15.1 - Hypertension secondary to other renal disorders Assessment/Plan Current Medications Generic Name Dose Route Start Last Admin Trade Name Joe PRN Reason Stop Dose Admin Allopurinol 100 mg 05/29/19 10:00 06/01/19 10:08 Zyloprim - PO 100 mg DAILY [facility]IKI Administration Clonidine 0.1 mg 05/30/19 22:00 06/01/19 10:07 Catapres - PO 0.1 mg BID NIKI Administration Ferrous Sulfate 325 mg 05/29/19 10:00 06/01/19 10:07 Feosol - PO 325 mg DAILY [facility]I Administration Heparin Sodium (Porcine) 5,000 unit 05/28/19 22:00 06/01/19 10:08 Heparin - SQ 5,000 unit BID [facility]I Administration Sodium Chloride 1,000 mls @ 50 mls/hr 05/31/19 16:51 06/01/19 10:12 Normal Saline - IV 50 mls/hr ASDIR NIKI Administration Insulin Aspart 1 vial 05/28/19 22:00 06/01/19 14:31 Novolog Vial Sliding Scale - SQ Not Given ACHS NIKI Protocol Latanoprost 1 drop 05/28/19 22:00 05/31/19 22:00 Xalatan 0.005% Eye Drops - OU 1 drop HS [facility]I Administration Losartan Potassium 100 mg 05/31/19 10:00 06/01/19 10:07 Cozaar - PO 100 mg DAILY [facility] Administration Nebivolol 20 mg 05/29/19 10:00 06/01/19 10:07 Bystolic - PO 20 mg DAILY [facility] Administration Non-Formulary Medication 1 drop 05/28/19 22:00 Brinzolamide [Azopt] OD BID [facility] Nystatin 1 applic 05/30/19 13:15 06/01/19 10:08 Mycostatin Cream - TP 1 applic BID [facility] Administration Impression 1. hypercalcemia 2. CKD 3. DM 4. HTN 5. arthritis 6. nephrolithiasis Plan - cont to monitor calcium - discussed with oncology - follow renal workup - likely will need bone marrow - bp is improving - will increase fluids
--- NOTE | 2019-06-01 21:06 | PN ---
Progress Note (short form) - Note Progress Note: PAtient seen and examined Hypercalcemia improved AFVSS Cor: RSR, No murmurs, No gallops Lungs: Clear to P&A Abd: Soft, Normal bowel sounds, No organomegaly Ext:No significant edema Labs/Meds improved A/P 74F with HTN, HLD, DM sent for admission by nephrology for Ca 14.3. (was seeing renal for the first time, creatinine 2.9). Only symptom seemed to be constipation. Creatinine was last 1.6 and calcium 11.8 in 11/2018. On IVF and s /p calcitonin, Calcium 10,5 today Also has normocytic anemia. Normal LDH and protein. PTH suppressed. Metastatic survey without e/o disease. Awaiting w/u including PTHRP, SPEP/FLC, vit D studies Discussed with son in great detail over the phone. Discussed considering BMBX based on preliminary protein studies follow up readings on CT scans
[2019-06-01] MEDS: DORZOLAMIDE 2% HCL OPHTHALMIC SOLUTION 10 ML BOTTLE OD SCH (22:07)
[2019-06-01] MEDS: LATANOPROST 0.005% OPHTH SOLN 2.5ML BOTTLE OU SCH (22:07)
[2019-06-02] MEDS: INSULIN SLIDING SCALE (NOVOLOG) 1 VIAL SQ SCH ×4 (06:05→21:36)
[2019-06-02 07:11] LABS: KAPPA LAMBDA RATIO URIN 6.07 (2.04-10.37)
[2019-06-02 07:37] LABS: HEMATOCRIT 29.7 % (32.4-45.2); HEMOGLOBIN 9.8 GM/dL (10.7-15.3); MCHC 32.9 g/dl (32.0-36.0); PLATELET COUNT 229 K/MM3 (134-434); RDW 15.1 % (11.6-15.6); WHITE BLOOD COUNT 5.4 K/mm3 (4.0-10.0)
[2019-06-02 08:21] LABS: ALBUMIN 3.5 g/dl (3.4-5.0); BILIRUBIN,TOTAL 0.3 mg/dL (0.2-1); CALCIUM 11.1 mg/dL (8.5-10.1); CREATININE 2.2 mg/dL (0.55-1.3); POTASSIUM 4.1 mmol/L (3.5-5.1); TOT PROT 7.3 g/dl (6.4-8.2)
[2019-06-02] MEDS ORDERED: PT OWN MED DRAWER 7, Y5N ONE ×2 (09:14→20:53)
[2019-06-02] MEDS: FERROUS SO4 325 MG TABLET (FP) PO SCH (09:20)
[2019-06-02] MEDS: cloNIDine HCL 0.1 MG TABLET PO SCH ×2 (09:20→21:36)
[2019-06-02] MEDS: LOSARTAN POTASSIUM 50 MG TABLET (FP) PO SCH (09:20)
[2019-06-02] MEDS: NEBIVOLOL 10 MG TABLET (FP) PO SCH (09:20)
[2019-06-02] MEDS: ALLOPURINOL 100 MG TABLET (FP) PO SCH (09:20)
[2019-06-02] MEDS: HEPARIN NA (PORCINE) 5,000 UNITS/ML 1ML VIAL SQ SCH ×2 (09:20→21:36)
[2019-06-02] MEDS: NYSTATIN 100,000 UNIT/GM TOPICAL CREAM 15 GM TUBE TP SCH ×2 (09:21→21:36)
[2019-06-02] MEDS: DORZOLAMIDE 2% HCL OPHTHALMIC SOLUTION 10 ML BOTTLE OD SCH ×2 (09:22→21:35)
[2019-06-02 14:09] LABS: ALBUMIN % 28.4 % (.); ALPHA-1 FOR UPE 5.2 % (.); TOTAL PROTEIN, URINE 6.3 mg/dL (Not Estab.); TOTAL PROTEIN, URINE 9.8 mg/dL (Not Estab.)
--- NOTE | 2019-06-02 14:58 | PN ---
Progress Note, Physician Chief Complaint: Hypercalcemia History of Present Illness: Previous notes and events reviewed awake and alert NAD Ca 11.1 denies complaints of chest pain or SOB Bone Scan done yesterday, results pending - Current Medication List Current Medications: Active Medications Allopurinol (Zyloprim -) 100 mg PO DAILY [facility] Last Admin: 06/02/19 09:20 Dose: 100 mg Clonidine (Catapres -) 0.1 mg PO BID [facility] Last Admin: 06/02/19 09:20 Dose: 0.1 mg Dorzolamide HCl (Trusopt 2%) 1 drop OD BID [facility] Last Admin: 06/02/19 09:22 Dose: 1 drop Ferrous Sulfate (Feosol -) 325 mg PO DAILY [facility] Last Admin: 06/02/19 09:20 Dose: 325 mg Heparin Sodium (Porcine) (Heparin -) 5,000 unit SQ BID [facility] Last Admin: 06/02/19 09:20 Dose: 5,000 unit Sodium Chloride (Normal Saline -) 1,000 mls @ 100 mls/hr IV ASDIR [facility] Insulin Aspart (Novolog Vial Sliding Scale -) 1 vial SQ ACHS [facility]; Protocol Last Admin: 06/02/19 11:47 Dose: Not Given Latanoprost (Xalatan 0.005% Eye Drops -) 1 drop OU HS [facility] Last Admin: 06/01/19 22:07 Dose: 1 drop Losartan Potassium (Cozaar -) 100 mg PO DAILY [facility] Last Admin: 06/02/19 09:20 Dose: 100 mg Nebivolol (Bystolic -) 20 mg PO DAILY [facility] Last Admin: 06/02/19 09:20 Dose: 20 mg Nystatin (Mycostatin Cream -) 1 applic TP BID [facility] Last Admin: 06/02/19 09:21 Dose: 1 applic - Objective Vital Signs: Vital Signs Temperature 98.2 F 06/02/19 09:18 Pulse Rate 72 06/02/19 09:18 Respiratory Rate 18 06/02/19 09:18 Blood Pressure 149/73 06/02/19 09:18 O2 Sat by Pulse Oximetry (%) 99 06/01/19 21:00 Constitutional: Yes: No Distress, Calm Eyes: Yes: Conjunctiva Clear HENT: Yes: Atraumatic Cardiovascular: Yes: Regular Rate and Rhythm Respiratory: Yes: Regular, CTA Bilaterally Gastrointestinal: Yes: Normal Bowel Sounds, Soft Musculoskeletal: Yes: WNL Extremities: Yes: WNL Edema: No Neurological: Yes: Alert, Oriented Psychiatric: Yes: Alert, Oriented Labs: CBC, BMP 06/02/19 07:08 06/02/19 07:08 INR, PTT INR 1.09 (0.83-1.09) 05/28/19 15:50 Problem List - Problems (1) Hypercalcemia Assessment/Plan: -Ca 11.1 -renal and oncology on board -Metastatic series shows no blastic or lytic changes -IV hydration -pending oncology workup -Bone scan done, results pending Code(s): E83.52 - HYPERCALCEMIA (2) CKD (chronic kidney disease) Assessment/Plan: -BUN/Cr 42/2.2 -renal on board -Renal US shows negative exam -IV hydration Code(s): N18.9 - CHRONIC KIDNEY DISEASE, UNSPECIFIED Qualifiers: Chronic kidney disease stage: stage 3 (moderate) Qualified Code(s): N18.3 - Chronic kidney disease, stage 3 (moderate) (3) Diabetes Assessment/Plan: -BGM ACHS -ISS -diabetic/low Na diet Code(s): E11.9 - TYPE 2 DIABETES MELLITUS WITHOUT COMPLICATIONS Qualifiers: Diabetes mellitus type: type 2 (4) Glaucoma Assessment/Plan: -Azopt Code(s): H40.9 - UNSPECIFIED GLAUCOMA (5) HTN (hypertension) Assessment/Plan: -Clonidine, Bystolic, Losartan -low Na diabetic diet Code(s): I10 - ESSENTIAL (PRIMARY) HYPERTENSION Qualifiers: Hypertension type: secondary to other renal disorders Qualified Code(s): I15.1 - Hypertension secondary to other renal disorders Assessment/Plan see problem list dvt ppx
--- NOTE | 2019-06-02 15:26 | PN ---
Progress Note, Physician History of Present Illness: Pt seen and examined at bedside. She is awake and alert. She complains of right hip pain. - Current Medication List Current Medications: Active Medications Allopurinol (Zyloprim -) 100 mg PO DAILY [facility] Last Admin: 06/02/19 09:20 Dose: 100 mg Clonidine (Catapres -) 0.1 mg PO BID [facility] Last Admin: 06/02/19 09:20 Dose: 0.1 mg Dorzolamide HCl (Trusopt 2%) 1 drop OD BID [facility] Last Admin: 06/02/19 09:22 Dose: 1 drop Ferrous Sulfate (Feosol -) 325 mg PO DAILY [facility] Last Admin: 06/02/19 09:20 Dose: 325 mg Heparin Sodium (Porcine) (Heparin -) 5,000 unit SQ BID [facility] Last Admin: 06/02/19 09:20 Dose: 5,000 unit Sodium Chloride (Normal Saline -) 1,000 mls @ 100 mls/hr IV ASDIR [facility] Insulin Aspart (Novolog Vial Sliding Scale -) 1 vial SQ ACHS [facility]; Protocol Last Admin: 06/02/19 11:47 Dose: Not Given Latanoprost (Xalatan 0.005% Eye Drops -) 1 drop OU HS [facility] Last Admin: 06/01/19 22:07 Dose: 1 drop Losartan Potassium (Cozaar -) 100 mg PO DAILY [facility] Last Admin: 06/02/19 09:20 Dose: 100 mg Nebivolol (Bystolic -) 20 mg PO DAILY [facility] Last Admin: 06/02/19 09:20 Dose: 20 mg Nystatin (Mycostatin Cream -) 1 applic TP BID [facility] Last Admin: 06/02/19 09:21 Dose: 1 applic - Objective Vital Signs: Vital Signs Temperature 98.2 F 06/02/19 09:18 Pulse Rate 72 06/02/19 09:18 Respiratory Rate 18 06/02/19 09:18 Blood Pressure 149/73 06/02/19 09:18 O2 Sat by Pulse Oximetry (%) 99 06/01/19 21:00 Constitutional: Yes: Calm Eyes: Yes: Conjunctiva Clear HENT: Yes: Atraumatic Neck: Yes: Supple Cardiovascular: Yes: S1, S2 Respiratory: Yes: CTA Bilaterally Gastrointestinal: Yes: Soft Genitourinary: Yes: WNL Musculoskeletal: Yes: WNL Edema: No Neurological: Yes: Oriented Psychiatric: Yes: Oriented Labs: CBC, BMP 06/02/19 07:08 06/02/19 07:08 INR, PTT INR 1.09 (0.83-1.09) 05/28/19 15:50 Problem List - Problems (1) Hypercalcemia Code(s): E83.52 - HYPERCALCEMIA (2) CKD (chronic kidney disease) Code(s): N18.9 - CHRONIC KIDNEY DISEASE, UNSPECIFIED Qualifiers: Chronic kidney disease stage: stage 3 (moderate) Qualified Code(s): N18.3 - Chronic kidney disease, stage 3 (moderate) (3) Diabetes Code(s): E11.9 - TYPE 2 DIABETES MELLITUS WITHOUT COMPLICATIONS Qualifiers: Diabetes mellitus type: type 2 (4) HTN (hypertension) Code(s): I10 - ESSENTIAL (PRIMARY) HYPERTENSION Qualifiers: Hypertension type: secondary to other renal disorders Qualified Code(s): I15.1 - Hypertension secondary to other renal disorders Assessment/Plan Current Medications Generic Name Dose Route Start Last Admin Trade Name Joe PRN Reason Stop Dose Admin Allopurinol 100 mg 05/29/19 10:00 06/02/19 09:20 Zyloprim - PO 100 mg DAILY NIKI Administration Calcitonin 260 unit 06/02/19 15:24 Miacalcin Injection - SQ BID NIKI Clonidine 0.1 mg 05/30/19 22:00 06/02/19 09:20 Catapres - PO 0.1 mg BID NIKI Administration Dorzolamide HCl 1 drop 06/01/19 22:00 06/02/19 09:22 Trusopt 2% OD 1 drop BID NKII Administration Ferrous Sulfate 325 mg 05/29/19 10:00 06/02/19 09:20 Feosol - PO 325 mg DAILY [facility]IKI Administration Heparin Sodium (Porcine) 5,000 unit 05/28/19 22:00 06/02/19 09:20 Heparin - SQ 5,000 unit BID NIKI Administration Sodium Chloride 1,000 mls @ 100 mls/hr 06/01/19 16:37 Normal Saline - IV ASDIR NIKI Insulin Aspart 1 vial 05/28/19 22:00 06/02/19 11:47 Novolog Vial Sliding Scale - SQ Not Given ACHS [facility] Protocol Latanoprost 1 drop 05/28/19 22:00 06/01/19 22:07 Xalatan 0.005% Eye Drops - OU 1 drop HS [facility]IKI Administration Losartan Potassium 100 mg 05/31/19 10:00 06/02/19 09:20 Cozaar - PO 100 mg DAILY [facility] Administration Nebivolol 20 mg 05/29/19 10:00 06/02/19 09:20 Bystolic - PO 20 mg DAILY [facility]I Administration Nystatin 1 applic 05/30/19 13:15 06/02/19 09:21 Mycostatin Cream - TP 1 applic BID [facility]IKI Administration Impression 1. hypercalcemia 2. CKD 3. DM 4. HTN 5. arthritis 6. nephrolithiasis Plan - resume calcitonin - calcium rising - cont fluids - oncology follow up - follow renal workup - likely will need bone marrow - bp is improving
[2019-06-02] MEDS: CALCITONIN - SALMON SYNTHETIC 400 UNIT/2 ML VIAL SQ SCH ×2 (16:00→22:25)
[2019-06-02] MEDS ORDERED: INSULIN (NOVOLOG) ASPART 100 UNITS/ML 10ML VIAL ONE (20:53)
[2019-06-02] MEDS: LATANOPROST 0.005% OPHTH SOLN 2.5ML BOTTLE OU SCH (21:36)
[2019-06-02] MEDS: SODIUM CHLORIDE 1,000 ML IV SCH (21:38)
[2019-06-03] MEDS: INSULIN SLIDING SCALE (NOVOLOG) 1 VIAL SQ SCH ×4 (06:24→21:44)
[2019-06-03 07:31] LABS: HEMATOCRIT 30.5 % (32.4-45.2); HEMOGLOBIN 9.8 GM/dL (10.7-15.3); MCH 27.8 pg (25.7-33.7); MCHC 32.3 g/dl (32.0-36.0); MEAN PLT VOLUME 7.9 fl (7.5-11.1); PLATELET COUNT 232 K/MM3 (134-434); RBC 3.54 M/mm3 (3.60-5.2); RDW 15.7 % (11.6-15.6); WHITE BLOOD COUNT 5.4 K/mm3 (4.0-10.0)
[2019-06-03 08:09] LABS: ALBUMIN 3.4 g/dl (3.4-5.0); BILIRUBIN,TOTAL 0.2 mg/dL (0.2-1); BLOOD UREA NITROGEN 35.6 mg/dL (7-18); CALCIUM 9.9 mg/dL (8.5-10.1); CREATININE 2.1 mg/dL (0.55-1.3); POTASSIUM 3.9 mmol/L (3.5-5.1)
--- NOTE | 2019-06-03 08:21 | PN ---
Progress Note, Physician Chief Complaint: Hypercalcemia History of Present Illness: Previous notes and events reviewed awake and alert NAD Ca 9.9 denies complaints of chest pain or SOB Bone Scan done yesterday - Current Medication List Current Medications: Active Medications Allopurinol (Zyloprim -) 100 mg PO DAILY [facility] Last Admin: 06/02/19 09:20 Dose: 100 mg Calcitonin (Miacalcin Injection -) 260 unit SQ BID [facility] Last Admin: 06/02/19 22:25 Dose: 260 unit Clonidine (Catapres -) 0.1 mg PO BID [facility] Last Admin: 06/02/19 21:36 Dose: 0.1 mg Dorzolamide HCl (Trusopt 2%) 1 drop OD BID [facility] Last Admin: 06/02/19 21:35 Dose: 1 drop Ferrous Sulfate (Feosol -) 325 mg PO DAILY [facility] Last Admin: 06/02/19 09:20 Dose: 325 mg Heparin Sodium (Porcine) (Heparin -) 5,000 unit SQ BID [facility] Last Admin: 06/02/19 21:36 Dose: 5,000 unit Sodium Chloride (Normal Saline -) 1,000 mls @ 100 mls/hr IV ASDIR [facility] Last Admin: 06/02/19 21:38 Dose: 100 mls/hr Insulin Aspart (Novolog Vial Sliding Scale -) 1 vial SQ ACHS [facility]; Protocol Last Admin: 06/03/19 06:24 Dose: Not Given Latanoprost (Xalatan 0.005% Eye Drops -) 1 drop OU HS [facility] Last Admin: 06/02/19 21:36 Dose: 1 drop Losartan Potassium (Cozaar -) 100 mg PO DAILY [facility] Last Admin: 06/02/19 09:20 Dose: 100 mg Nebivolol (Bystolic -) 20 mg PO DAILY [facility] Last Admin: 06/02/19 09:20 Dose: 20 mg Nystatin (Mycostatin Cream -) 1 applic TP BID [facility] Last Admin: 06/02/19 21:36 Dose: 1 applic - Objective Vital Signs: Vital Signs Temperature 98.9 F 06/02/19 22:44 Pulse Rate 20 L 06/02/19 22:44 Respiratory Rate 20 06/02/19 22:44 Blood Pressure 149/76 06/02/19 23:53 O2 Sat by Pulse Oximetry (%) 99 06/02/19 22:00 Constitutional: Yes: No Distress, Calm Eyes: Yes: Conjunctiva Clear HENT: Yes: Atraumatic Cardiovascular: Yes: Regular Rate and Rhythm Respiratory: Yes: Regular, CTA Bilaterally Gastrointestinal: Yes: Normal Bowel Sounds, Soft Musculoskeletal: Yes: WNL Extremities: Yes: WNL Edema: No Neurological: Yes: Alert, Oriented Psychiatric: Yes: Alert, Oriented Labs: CBC, BMP 06/03/19 07:10 06/03/19 07:10 INR, PTT INR 1.09 (0.83-1.09) 05/28/19 15:50 Problem List - Problems (1) Hypercalcemia Assessment/Plan: -Ca 11.1 -renal and oncology on board -Metastatic series shows no blastic or lytic changes -pending oncology workup -Bone scan done shows no scintigraphic evidence of osteoblastic metastasis -possible need bone marrow biopsy as per oncology Code(s): E83.52 - HYPERCALCEMIA (2) CKD (chronic kidney disease) Assessment/Plan: -BUN/Cr 35.6/2.1 -renal on board -Renal US shows negative exam Code(s): N18.9 - CHRONIC KIDNEY DISEASE, UNSPECIFIED Qualifiers: Chronic kidney disease stage: stage 3 (moderate) Qualified Code(s): N18.3 - Chronic kidney disease, stage 3 (moderate) (3) Diabetes Assessment/Plan: -BGM ACHS -ISS -diabetic/low Na diet Code(s): E11.9 - TYPE 2 DIABETES MELLITUS WITHOUT COMPLICATIONS Qualifiers: Diabetes mellitus type: type 2 (4) Glaucoma Assessment/Plan: -Azopt Code(s): H40.9 - UNSPECIFIED GLAUCOMA (5) HTN (hypertension) Assessment/Plan: -Clonidine, Bystolic, Losartan -low Na diabetic diet Code(s): I10 - ESSENTIAL (PRIMARY) HYPERTENSION Qualifiers: Hypertension type: secondary to other renal disorders Qualified Code(s): I15.1 - Hypertension secondary to other renal disorders Assessment/Plan see problem list dvt ppx
[2019-06-03] MEDS: LOSARTAN POTASSIUM 50 MG TABLET (FP) PO SCH (10:03)
[2019-06-03] MEDS: cloNIDine HCL 0.1 MG TABLET PO SCH ×2 (10:03→21:20)
[2019-06-03] MEDS: HEPARIN NA (PORCINE) 5,000 UNITS/ML 1ML VIAL SQ SCH ×2 (10:03→21:20)
[2019-06-03] MEDS: NEBIVOLOL 10 MG TABLET (FP) PO SCH (10:03)
[2019-06-03] MEDS: ALLOPURINOL 100 MG TABLET (FP) PO SCH (10:03)
[2019-06-03] MEDS: NYSTATIN 100,000 UNIT/GM TOPICAL CREAM 15 GM TUBE TP SCH ×2 (10:03→21:38)
[2019-06-03] MEDS: FERROUS SO4 325 MG TABLET (FP) PO SCH (10:03)
[2019-06-03] MEDS: DORZOLAMIDE 2% HCL OPHTHALMIC SOLUTION 10 ML BOTTLE OD SCH ×2 (10:04→21:39)
--- NOTE | 2019-06-03 12:48 | PN ---
Progress Note, Physician History of Present Illness: Pt seed and examined at bedside. She is awake and alert. She denies shortness of breath. - Current Medication List Current Medications: Active Medications Allopurinol (Zyloprim -) 100 mg PO DAILY [facility] Last Admin: 06/03/19 10:03 Dose: 100 mg Calcitonin (Miacalcin Injection -) 260 unit SQ BID [facility] Last Admin: 06/02/19 22:25 Dose: 260 unit Clonidine (Catapres -) 0.1 mg PO BID [facility] Last Admin: 06/03/19 10:03 Dose: 0.1 mg Dorzolamide HCl (Trusopt 2%) 1 drop OD BID [facility] Last Admin: 06/03/19 10:04 Dose: 1 drop Ferrous Sulfate (Feosol -) 325 mg PO DAILY [facility] Last Admin: 06/03/19 10:03 Dose: 325 mg Heparin Sodium (Porcine) (Heparin -) 5,000 unit SQ BID [facility] Last Admin: 06/03/19 10:03 Dose: 5,000 unit Sodium Chloride (Normal Saline -) 1,000 mls @ 100 mls/hr IV ASDIR [facility] Last Admin: 06/02/19 21:38 Dose: 100 mls/hr Insulin Aspart (Novolog Vial Sliding Scale -) 1 vial SQ ACHS [facility]; Protocol Last Admin: 06/03/19 12:03 Dose: Not Given Latanoprost (Xalatan 0.005% Eye Drops -) 1 drop OU HS [facility] Last Admin: 06/02/19 21:36 Dose: 1 drop Losartan Potassium (Cozaar -) 100 mg PO DAILY [facility] Last Admin: 06/03/19 10:03 Dose: 100 mg Nebivolol (Bystolic -) 20 mg PO DAILY [facility] Last Admin: 06/03/19 10:03 Dose: 20 mg Nystatin (Mycostatin Cream -) 1 applic TP BID [facility] Last Admin: 06/03/19 10:03 Dose: 1 applic - Objective Vital Signs: Vital Signs Temperature 98.9 F 06/02/19 22:44 Pulse Rate 67 06/03/19 10:00 Respiratory Rate 18 06/03/19 10:00 Blood Pressure 173/93 H 06/03/19 10:00 O2 Sat by Pulse Oximetry (%) 99 06/03/19 09:00 Constitutional: Yes: Calm Eyes: Yes: Conjunctiva Clear HENT: Yes: Atraumatic Neck: Yes: Supple Cardiovascular: Yes: S1, S2 Respiratory: Yes: CTA Bilaterally Gastrointestinal: Yes: Soft Genitourinary: Yes: WNL Musculoskeletal: Yes: WNL Edema: No Neurological: Yes: Oriented Psychiatric: Yes: Oriented Labs: CBC, BMP 06/03/19 07:10 06/03/19 07:10 INR, PTT INR 1.09 (0.83-1.09) 05/28/19 15:50 Problem List - Problems (1) Hypercalcemia Code(s): E83.52 - HYPERCALCEMIA (2) CKD (chronic kidney disease) Code(s): N18.9 - CHRONIC KIDNEY DISEASE, UNSPECIFIED Qualifiers: Chronic kidney disease stage: stage 3 (moderate) Qualified Code(s): N18.3 - Chronic kidney disease, stage 3 (moderate) (3) Diabetes Code(s): E11.9 - TYPE 2 DIABETES MELLITUS WITHOUT COMPLICATIONS Qualifiers: Diabetes mellitus type: type 2 (4) HTN (hypertension) Code(s): I10 - ESSENTIAL (PRIMARY) HYPERTENSION Qualifiers: Hypertension type: secondary to other renal disorders Qualified Code(s): I15.1 - Hypertension secondary to other renal disorders Assessment/Plan Current Medications Generic Name Dose Route Start Last Admin Trade Name Freq PRN Reason Stop Dose Admin Allopurinol 100 mg 05/29/19 10:00 06/03/19 10:03 Zyloprim - PO 100 mg DAILY NIKI Administration Calcitonin 260 unit 06/02/19 15:24 06/02/19 22:25 Miacalcin Injection - SQ 260 unit BID NIKI Administration Clonidine 0.1 mg 05/30/19 22:00 06/03/19 10:03 Catapres - PO 0.1 mg BID NIKI Administration Dorzolamide HCl 1 drop 06/01/19 22:00 06/03/19 10:04 Trusopt 2% OD 1 drop BID NIKI Administration Ferrous Sulfate 325 mg 05/29/19 10:00 06/03/19 10:03 Feosol - PO 325 mg DAILY [facility]I Administration Heparin Sodium (Porcine) 5,000 unit 05/28/19 22:00 06/03/19 10:03 Heparin - SQ 5,000 unit BID NIKI Administration Sodium Chloride 1,000 mls @ 100 mls/hr 06/01/19 16:37 06/02/19 21:38 Normal Saline - IV 100 mls/hr ASDIR [facility]IKI Administration Insulin Aspart 1 vial 05/28/19 22:00 06/03/19 12:03 Novolog Vial Sliding Scale - SQ Not Given ACHS [facility] Protocol Latanoprost 1 drop 05/28/19 22:00 06/02/19 21:36 Xalatan 0.005% Eye Drops - OU 1 drop HS [facility]I Administration Losartan Potassium 100 mg 05/31/19 10:00 06/03/19 10:03 Cozaar - PO 100 mg DAILY [facility]I Administration Nebivolol 20 mg 05/29/19 10:00 06/03/19 10:03 Bystolic - PO 20 mg DAILY [facility]I Administration Nystatin 1 applic 05/30/19 13:15 06/03/19 10:03 Mycostatin Cream - TP 1 applic BID NIKI Administration Laboratory Tests 05/29/19 05/29/19 00:05 00:05 U Free [place] Light Ch 109.00 H U Free Lambda Light Ch 10.30 H U Free [place]/Lambda 24 10.58 H Free [place] LC, Quant Pending Free Lambda LC, Quant Pending Free [place]/Lambda Ratio Pending Impression 1. hypercalcemia 2. CKD 3. DM 4. HTN 5. arthritis 6. nephrolithiasis Plan - calcium improving - decrease fluids - repeat labs in am - oncology input appreciated - follow renal workup - likely will need bone marrow
[2019-06-03] MEDS: CALCITONIN - SALMON SYNTHETIC 400 UNIT/2 ML VIAL SQ SCH (16:43)
[2019-06-03] MEDS: SODIUM CHLORIDE 1,000 ML IV SCH (16:43)
[2019-06-03] MEDS ORDERED: SODIUM CHLORIDE 1,000 ML IV SCH (17:50)
[2019-06-03] MEDS ORDERED: PT OWN MED DRAWER 7, Y5N ONE (21:12)
[2019-06-03] MEDS: LATANOPROST 0.005% OPHTH SOLN 2.5ML BOTTLE OU SCH (21:39)
[2019-06-04] MEDS: INSULIN SLIDING SCALE (NOVOLOG) 1 VIAL SQ SCH ×4 (06:38→21:55)
[2019-06-04 09:21] LABS: ALBUMIN 3.2 g/dl (3.4-5.0); BILIRUBIN,TOTAL 0.2 mg/dL (0.2-1); BLOOD UREA NITROGEN 38.4 mg/dL (7-18); CALCIUM 9.4 mg/dL (8.5-10.1); POTASSIUM 4.2 mmol/L (3.5-5.1); TOT PROT 6.6 g/dl (6.4-8.2)
--- NOTE | 2019-06-04 10:06 | CON.PULM ---
Consult Consult Specialty:: PULMONARY Referred by:: Dr Rondon Reason for Consultation:: sarcoidosis - History of Present Illness Chief Complaint: hypercalcemia History of Present Illness: 74yo female with h/o HTN, DM, hyperlipidemia, sarcoidosis, hypercalcemia who was admitted with hypercalcemia. Currently being worked up including possible bone marrow biopsy to r/o multiple myeloma. 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 She was treated with prednisone by her PMD but did not like/tolerate the side effects. Her calcium is currently improved after IVF and calcitonin. - History Source History Provided By: Patient, Medical Record Limitations to Obtaining History: Language Barrier - Past Medical History Cardio/Vascular: Yes: HTN Pulmonary: Yes: Other (sarcoidosis) Renal/: Yes: Renal Inusuff Musculoskeletal: Yes: Osteoarthritis Endocrine: Yes: Diabetes Mellitus - Alcohol/Substance Use Hx Alcohol Use: No - Smoking History Smoking history: Never smoked Have you smoked in the past 12 months: No Home Medications - Allergies Allergies/Adverse Reactions: Allergies Allergy/AdvReac Type Severity Reaction Status Date / Time No Known Allergies Allergy Verified 05/28/19 15:05 - Home Medications Home Medications: Ambulatory Orders Latanoprost 0.005% Eye Drops [Xalatan 0.005% Eye Drops -] 1 drop OU HS 01/11/14 Nebivolol HCl [Bystolic] 20 mg PO DAILY 01/11/14 Brinzolamide [Azopt] 1 drop OD BID 06/29/16 Clonidine HCl [Clonidine HCl ER] 0.1 mg PO BID 06/29/16 Valsartan [Diovan] 320 mg PO DAILY 09/17/16 Allopurinol [Zyloprim -] 100 mg PO DAILY 11/05/18 Potassium Citrate [Potassium Citrate ER] 15 meq PO BID 11/05/18 Cholecalciferol (Vitamin D3) [Vitamin D3 -] 50,000 iu PO DAILY 05/28/19 Ferrous Sulfate 325 mg PO DAILY 05/28/19 Gabapentin 100 mg PO TID 05/28/19 Glipizide 10 mg PO DAILY 05/28/19 Linagliptin [Tradjenta] 5 mg PO DAILY 05/28/19 Multivitamins [Tab-A-Vit -] 1 tab PO DAILY 05/28/19 Tramadol HCl 50 mg PO BID PRN 06/27/19 Review of Systems - Review of Systems Constitutional: denies: Chills, Fever, Weakness Eyes: denies: Recent Change in Vision HENT: denies: Nasal Congestion, Throat Pain Neck: denies: Stiffness, Tenderness Cardiovascular: denies: Chest Pain, Shortness of Breath Respiratory: denies: Cough, Hemoptysis, SOB, Wheezing Gastrointestinal: denies: Abdominal Pain, Nausea, Vomiting Genitourinary: denies: Dysuria, Hematuria Neurological: denies: Dizziness, Headache Endocrine: denies: Unexplained Weight Loss Physical Exam Vital Sings: Vital Signs Temperature 98.8 F 06/04/19 05:55 Pulse Rate 64 06/04/19 05:55 Respiratory Rate 18 06/04/19 05:55 Blood Pressure 155/69 06/04/19 05:55 O2 Sat by Pulse Oximetry (%) 99 06/03/19 21:00 Constitutional: Yes: Calm Eyes: Yes: Conjunctiva Clear, EOM Intact HENT: Yes: Atraumatic, Normocephalic Neck: Yes: Supple, Trachea Midline Cardiovascular: Yes: Regular Rate and Rhythm Respiratory: Yes: Regular, Diminished (decreased breath sounds at the bases) ...Clubbing: No Gastrointestinal: Yes: Normal Bowel Sounds, Soft. No: Tenderness Edema: No Neurological: Yes: Alert, Oriented Labs: CBC, BMP 06/04/19 07:26 06/04/19 07:26 Imaging - Results Chest X-ray: Report Reviewed, Image Reviewed Cat Scan: Report Reviewed, Image Reviewed (bilateral reticulonodular infiltrates ) Problem List - Problems (1) Hypercalcemia Code(s): E83.52 - HYPERCALCEMIA (2) Sarcoidosis Code(s): D86.9 - SARCOIDOSIS, UNSPECIFIED Assessment/Plan Hypercalcemia Sarcoidosis Acute on Chronic Renal Failure Liver Cirrhosis HTN DM Hyperlipidemia - would recommend placing back on low dose prednisone (20mg) considering evidence of extrapulmonary sarcoidosis - can consider ketoconazole or hydrochloroquine for maintenance therapy for sarcoidosis if pt refusing or intolerant of steroids - monitor lytes - outpt f/u of chest imaging and PFTs - DVT prophylaxis Thank you for this consult Víctor Mixon MD
--- NOTE | 2019-06-04 10:07 | PN ---
Progress Note, Physician History of Present Illness: Pt seen and examined at bedside. She is awake and alert. She denies shortness of breath. - Current Medication List Current Medications: Active Medications Allopurinol (Zyloprim -) 100 mg PO DAILY [facility] Last Admin: 06/03/19 10:03 Dose: 100 mg Clonidine (Catapres -) 0.1 mg PO BID [facility] Last Admin: 06/03/19 21:20 Dose: 0.1 mg Dorzolamide HCl (Trusopt 2%) 1 drop OD BID [facility] Last Admin: 06/03/19 21:39 Dose: 1 drop Ferrous Sulfate (Feosol -) 325 mg PO DAILY [facility] Last Admin: 06/03/19 10:03 Dose: 325 mg Heparin Sodium (Porcine) (Heparin -) 5,000 unit SQ BID [facility] Last Admin: 06/03/19 21:20 Dose: 5,000 unit Sodium Chloride (Normal Saline -) 1,000 mls @ 60 mls/hr IV ASDIR [facility] Last Admin: 06/03/19 23:10 Dose: 60 mls/hr Insulin Aspart (Novolog Vial Sliding Scale -) 1 vial SQ ACHS [facility]; Protocol Last Admin: 06/04/19 06:38 Dose: Not Given Latanoprost (Xalatan 0.005% Eye Drops -) 1 drop OU HS [facility] Last Admin: 06/03/19 21:39 Dose: 1 drop Losartan Potassium (Cozaar -) 100 mg PO DAILY [facility] Last Admin: 06/03/19 10:03 Dose: 100 mg Nebivolol (Bystolic -) 20 mg PO DAILY [facility] Last Admin: 06/03/19 10:03 Dose: 20 mg Nystatin (Mycostatin Cream -) 1 applic TP BID [facility] Last Admin: 06/03/19 21:38 Dose: 1 applic - Objective Vital Signs: Vital Signs Temperature 98.8 F 06/04/19 05:55 Pulse Rate 64 06/04/19 05:55 Respiratory Rate 18 06/04/19 05:55 Blood Pressure 155/69 06/04/19 05:55 O2 Sat by Pulse Oximetry (%) 99 06/03/19 21:00 Constitutional: Yes: Calm Eyes: Yes: Conjunctiva Clear HENT: Yes: Atraumatic Neck: Yes: Supple Cardiovascular: Yes: S1, S2 Respiratory: Yes: CTA Bilaterally Gastrointestinal: Yes: Soft Genitourinary: Yes: WNL Musculoskeletal: Yes: WNL Edema: No Neurological: Yes: Oriented Psychiatric: Yes: Oriented Labs: CBC, BMP 06/04/19 07:26 06/04/19 07:26 INR, PTT INR 1.09 (0.83-1.09) 05/28/19 15:50 Problem List - Problems (1) Hypercalcemia Code(s): E83.52 - HYPERCALCEMIA (2) CKD (chronic kidney disease) Code(s): N18.9 - CHRONIC KIDNEY DISEASE, UNSPECIFIED Qualifiers: Qualified Code(s): N18.3 - Chronic kidney disease, stage 3 (moderate) (3) Diabetes Code(s): E11.9 - TYPE 2 DIABETES MELLITUS WITHOUT COMPLICATIONS (4) HTN (hypertension) Code(s): I10 - ESSENTIAL (PRIMARY) HYPERTENSION Qualifiers: Qualified Code(s): I15.1 - Hypertension secondary to other renal disorders; N28.89 - Other specified disorders of kidney and ureter Assessment/Plan Current Medications Generic Name Dose Route Start Last Admin Trade Name Joe PRN Reason Stop Dose Admin Allopurinol 100 mg 05/29/19 10:00 06/03/19 10:03 Zyloprim - PO 100 mg DAILY NIKI Administration Clonidine 0.1 mg 05/30/19 22:00 06/03/19 21:20 Catapres - PO 0.1 mg BID NIKI Administration Dorzolamide HCl 1 drop 06/01/19 22:00 06/03/19 21:39 Trusopt 2% OD 1 drop BID NIKI Administration Ferrous Sulfate 325 mg 05/29/19 10:00 06/03/19 10:03 Feosol - PO 325 mg DAILY NIKI Administration Heparin Sodium (Porcine) 5,000 unit 05/28/19 22:00 06/03/19 21:20 Heparin - SQ 5,000 unit BID NIKI Administration Sodium Chloride 1,000 mls @ 60 mls/hr 06/03/19 17:50 06/03/19 23:10 Normal Saline - IV 60 mls/hr ASDIR NIKI Administration Insulin Aspart 1 vial 05/28/19 22:00 06/04/19 06:38 Novolog Vial Sliding Scale - SQ Not Given ACHS NIKI Protocol Latanoprost 1 drop 05/28/19 22:00 06/03/19 21:39 Xalatan 0.005% Eye Drops - OU 1 drop HS NIKI Administration Losartan Potassium 100 mg 05/31/19 10:00 06/03/19 10:03 Cozaar - PO 100 mg DAILY NIKI Administration Nebivolol 20 mg 05/29/19 10:00 06/03/19 10:03 Bystolic - PO 20 mg DAILY NIKI Administration Nystatin 1 applic 05/30/19 13:15 06/03/19 21:38 Mycostatin Cream - TP 1 applic BID NIKI Administration Impression 1. hypercalcemia 2. CKD 3. DM 4. HTN 5. arthritis 6. nephrolithiasis 7. possible sarcoid Plan - monitor calcium - d/c calcitonin - pulmonary eval - check magda level - follow renal workup - discussed with heme onc
[2019-06-04] MEDS ORDERED: PT OWN MED DRAWER 7, Y5N ONE ×2 (10:19→21:44)
--- NOTE | 2019-06-04 10:20 | PN ---
Progress Note (short form) - Note Progress Note: PAtient seen and examined Hypercalcemia improved c/o chronic lower back pain radiating to lower extremities--chronic. Bone scan noted severe degenerative changes and L5-S1 severe facet degenerative changes Last Vital Signs Temp Pulse Resp BP Pulse Ox 98.8 F 64 18 155/69 99 06/04/19 05:55 06/04/19 05:55 06/04/19 05:55 06/04/19 05:55 06/03/19 21:00 Cor: RSR, No murmurs, No gallops Lungs: Clear to P&A Abd: Soft, Normal bowel sounds, No organomegaly Ext:No significant edema Abnormal Lab Results 06/04/19 07:26 Chloride 116 H Carbon Dioxide 20 L Anion Gap 6 L BUN 38.4 H Creatinine 2.0 H Random Glucose 133 H Albumin 3.2 L Active Medications Allopurinol (Zyloprim -) 100 mg PO DAILY [facility] Last Admin: 06/04/19 10:25 Dose: 100 mg Clonidine (Catapres -) 0.1 mg PO BID [facility] Last Admin: 06/04/19 10:25 Dose: 0.1 mg Dorzolamide HCl (Trusopt 2%) 1 drop OD BID [facility] Last Admin: 06/04/19 10:26 Dose: 1 drop Ferrous Sulfate (Feosol -) 325 mg PO DAILY [facility] Last Admin: 06/04/19 10:25 Dose: 325 mg Heparin Sodium (Porcine) (Heparin -) 5,000 unit SQ BID [facility] Last Admin: 06/04/19 10:25 Dose: 5,000 unit Insulin Aspart (Novolog Vial Sliding Scale -) 1 vial SQ [facility]; Protocol Last Admin: 06/04/19 06:38 Dose: Not Given Latanoprost (Xalatan 0.005% Eye Drops -) 1 drop OU HS [facility] Last Admin: 06/03/19 21:39 Dose: 1 drop Losartan Potassium (Cozaar -) 100 mg PO DAILY [facility] Last Admin: 06/04/19 10:25 Dose: 100 mg Nebivolol (Bystolic -) 20 mg PO DAILY [facility] Last Admin: 06/04/19 10:25 Dose: 20 mg Nystatin (Mycostatin Cream -) 1 applic TP BID [facility] Last Admin: 06/03/19 21:38 Dose: 1 applic A/P 74F with HTN, HLD, DM sent for admission by nephrology for Ca 14.3. (was seeing renal for the first time, creatinine 2.9). Only symptom seemed to be constipation. Creatinine was last 1.6 and calcium 11.8 in 11/2018. On IVF and s /p calcitonin, Calcium 10,5 today Also has normocytic anemia. Normal LDH and protein. PTH suppressed. Metastatic survey without e/o disease. 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 ago -- patient c/o restlessness with prednisone will consider medrol MIKE level Suspect hypercalcemia due to sarcoidosis -- NoM protein on SIFE. Faint band in UIFE --most likely reactive. Bone scan negative. CT scans show reticulonodular changes in the lungs/mediastinal adenopathy. Will start medrol Consult endocrine for help with blodd sugars on steroids Left message with son Lumbar radiculopathy --? neuro consult ? outpatient epidural steroid Discussed via [employer] wirer with patient
[2019-06-04] MEDS: LOSARTAN POTASSIUM 50 MG TABLET (FP) PO SCH (10:25)
[2019-06-04] MEDS: NEBIVOLOL 10 MG TABLET (FP) PO SCH (10:25)
[2019-06-04] MEDS: FERROUS SO4 325 MG TABLET (FP) PO SCH (10:25)
[2019-06-04] MEDS: ALLOPURINOL 100 MG TABLET (FP) PO SCH (10:25)
[2019-06-04] MEDS: HEPARIN NA (PORCINE) 5,000 UNITS/ML 1ML VIAL SQ SCH ×2 (10:25→21:50)
[2019-06-04] MEDS: cloNIDine HCL 0.1 MG TABLET PO SCH ×2 (10:25→21:50)
[2019-06-04] MEDS: DORZOLAMIDE 2% HCL OPHTHALMIC SOLUTION 10 ML BOTTLE OD SCH ×2 (10:26→21:56)
[2019-06-04 10:49] LABS: HEMOGLOBIN 9.1 GM/dL (10.7-15.3); MCH 27.8 pg (25.7-33.7); MCHC 32.5 g/dl (32.0-36.0); MEAN CELL VOLUME 85.5 fl (80-96); MEAN PLT VOLUME 8.4 fl (7.5-11.1); PLATELET COUNT 208 K/MM3 (134-434); RBC 3.28 M/mm3 (3.60-5.2); WHITE BLOOD COUNT 5.5 K/mm3 (4.0-10.0)
--- NOTE | 2019-06-04 13:48 | PN ---
Progress Note, Physician Chief Complaint: Hypercalcemia History of Present Illness: 74yo female with h/o HTN, DM, hyperlipidemia, sarcoidosis, hypercalcemia who was admitted with hypercalcemia. Currently being worked up including possible bone marrow biopsy to r/o multiple myeloma. 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 She was treated with prednisone by her PMD but did not like/tolerate the side effects. Her calcium is currently improved after IVF and calcitonin. - Current Medication List Current Medications: Active Medications Allopurinol (Zyloprim -) 100 mg PO DAILY [facility] Last Admin: 06/04/19 10:25 Dose: 100 mg Clonidine (Catapres -) 0.1 mg PO BID [facility] Last Admin: 06/04/19 10:25 Dose: 0.1 mg Dorzolamide HCl (Trusopt 2%) 1 drop OD BID [facility] Last Admin: 06/04/19 10:26 Dose: 1 drop Ferrous Sulfate (Feosol -) 325 mg PO DAILY [facility] Last Admin: 06/04/19 10:25 Dose: 325 mg Heparin Sodium (Porcine) (Heparin -) 5,000 unit SQ BID [facility] Last Admin: 06/04/19 10:25 Dose: 5,000 unit Insulin Aspart (Novolog Vial Sliding Scale -) 1 vial SQ ACHS [facility]; Protocol Last Admin: 06/04/19 11:18 Dose: 2 unit Latanoprost (Xalatan 0.005% Eye Drops -) 1 drop OU HS [facility] Last Admin: 06/03/19 21:39 Dose: 1 drop Losartan Potassium (Cozaar -) 100 mg PO DAILY [facility] Last Admin: 06/04/19 10:25 Dose: 100 mg Methylprednisolone (Medrol -) 24 mg PO BID [facility] Nebivolol (Bystolic -) 20 mg PO DAILY [facility] Last Admin: 06/04/19 10:25 Dose: 20 mg Nystatin (Mycostatin Cream -) 1 applic TP BID [facility] Last Admin: 06/03/19 21:38 Dose: 1 applic Pantoprazole Sodium (Protonix -) 40 mg PO DAILY [facility] - Objective Vital Signs: Vital Signs Temperature 98.8 F 06/04/19 10:00 Pulse Rate 67 06/04/19 10:00 Respiratory Rate 18 06/04/19 10:00 Blood Pressure 144/77 06/04/19 10:00 O2 Sat by Pulse Oximetry (%) 99 06/03/19 21:00 Constitutional: Yes: Well Nourished, No Distress, Calm Cardiovascular: Yes: Regular Rate and Rhythm Respiratory: Yes: Regular Gastrointestinal: Yes: Normal Bowel Sounds, Soft Musculoskeletal: Yes: WNL Extremities: Yes: WNL Edema: No Peripheral Pulses WNL: Yes Neurological: Yes: Alert, Oriented Psychiatric: Yes: Alert, Oriented Labs: CBC, BMP 06/04/19 10:08 06/04/19 07:26 INR, PTT INR 1.09 (0.83-1.09) 05/28/19 15:50 Problem List - Problems (1) Sarcoidosis Assessment/Plan: -Seen by Pulmonary -Started medrol 24 mg po BID Code(s): D86.9 - SARCOIDOSIS, UNSPECIFIED Assessment/Plan (1) Hypercalcemia Assessment/Plan: -Ca 9.4 -renal and oncology on board -Metastatic series shows no blastic or lytic changes -pending oncology workup -Bone scan done shows no scintigraphic evidence of osteoblastic metastasis -As per oncology- symptoms consistent with sarcoidosis Code(s): E83.52 - HYPERCALCEMIA (2) CKD (chronic kidney disease) Assessment/Plan: -renal on board -Renal US shows negative exam Code(s): N18.9 - CHRONIC KIDNEY DISEASE, UNSPECIFIED Qualifiers: Chronic kidney disease stage: stage 3 (moderate) Qualified Code(s): N18.3 - Chronic kidney disease, stage 3 (moderate) (3) Diabetes Assessment/Plan: -A1c at 7.3 -BGM ACHS -ISS -diabetic/low Na diet Code(s): E11.9 - TYPE 2 DIABETES MELLITUS WITHOUT COMPLICATIONS Qualifiers: Diabetes mellitus type: type 2 (4) Glaucoma Assessment/Plan: -Azopt Code(s): H40.9 - UNSPECIFIED GLAUCOMA (5) HTN (hypertension) Assessment/Plan: -Clonidine, Bystolic, Losartan -low Na diabetic diet Code(s): I10 - ESSENTIAL (PRIMARY) HYPERTENSION Qualifiers: Hypertension type: secondary to other renal disorders Qualified Code(s): I15.1 - Hypertension secondary to other renal disorders
[2019-06-04] MEDS: NYSTATIN 100,000 UNIT/GM TOPICAL CREAM 15 GM TUBE TP SCH ×2 (13:59→21:53)
[2019-06-04 17:44] VITALS: BMI 26.0
[2019-06-04] MEDS ORDERED: INSULIN (NOVOLOG) ASPART 100 UNITS/ML 10ML VIAL ONE (21:45)
[2019-06-04] MEDS: methylPREDNISolone 4 MG TABLET PO SCH (21:54)
[2019-06-04] MEDS: LATANOPROST 0.005% OPHTH SOLN 2.5ML BOTTLE OU SCH (21:55)
[2019-06-05 03:06] LABS: FREE KAP CHN UR 53.8 mg/L (1.35-24.19); KAPPA LAMBDA RATIO URIN 8.14 (2.04-10.37)
--- NOTE | 2019-06-05 08:43 | CONSULT ---
Consult Consult Specialty:: Endocrinology Referred by:: Nela Romero Reason for Consultation:: Hyperglycemia - History of Present Illness Chief Complaint: Hypercalcemia History of Present Illness: This is a 74 year old female with a history of HTN, HLD, DM who was admitted for hypercalcemia after referred by her Workforce Manager. The patient states that she has been experiencing some dizziness but otherwise denies any other symptoms. Per Dr. Hernandez the patient was extremely hypercalcemic to 13 on an outpatient basis. The patient notes that she has had high calcium in the past, but has never been worked up for it. Pt was diagnosed with Sarcoidosis and treated with steroids in the past. Pt referred for management of hyperglycemia as she is on Methylprednisolone now in the hospital. Fs at home low 100s. No hypos. Had surery to eye 3 times in the past. She otherwise denies fevers, chills, headache, SOB, chest pain, nausea, vomiting, abdominal pain, or changes with urination or bowel movements. Denies loss of appetite/wt. loss - History Source History Provided By: Patient, Medical Record Limitations to Obtaining History: No Limitations - Past Medical History Cardio/Vascular: Yes: HTN Pulmonary: Yes: Other (sarcoidosis) Renal/: Yes: Renal Inusuff Musculoskeletal: Yes: Osteoarthritis Endocrine: Yes: Diabetes Mellitus - Alcohol/Substance Use Hx Alcohol Use: No - Smoking History Smoking history: Never smoked Have you smoked in the past 12 months: No Home Medications - Allergies Allergies/Adverse Reactions: Allergies Allergy/AdvReac Type Severity Reaction Status Date / Time No Known Allergies Allergy Verified 05/28/19 15:05 - Home Medications Home Medications: Ambulatory Orders Latanoprost 0.005% Eye Drops [Xalatan 0.005% Eye Drops -] 1 drop OU HS 01/11/14 Nebivolol HCl [Bystolic] 20 mg PO DAILY 01/11/14 Brinzolamide [Azopt] 1 drop OD BID 06/29/16 Clonidine HCl [Clonidine HCl ER] 0.1 mg PO BID 06/29/16 Valsartan [Diovan] 320 mg PO DAILY 09/17/16 Allopurinol [Zyloprim -] 100 mg PO DAILY 11/05/18 Potassium Citrate [Potassium Citrate ER] 15 meq PO BID 11/05/18 Cholecalciferol (Vitamin D3) [Vitamin D3 -] 50,000 iu PO DAILY 05/28/19 Ferrous Sulfate 325 mg PO DAILY 05/28/19 Gabapentin 100 mg PO TID 05/28/19 Glipizide 10 mg PO DAILY 05/28/19 Linagliptin [Tradjenta] 5 mg PO DAILY 05/28/19 Multivitamins [Tab-A-Vit -] 1 tab PO DAILY 05/28/19 Tramadol HCl 50 mg PO BID PRN 05/28/19 Family Disease History - Family Disease History Family Disease History: Diabetes: Mother Review of Systems - Review of Systems Constitutional: reports: No Symptoms Eyes: reports: No Symptoms HENT: reports: No Symptoms Neck: reports: No Symptoms Cardiovascular: reports: No Symptoms Respiratory: reports: No Symptoms Gastrointestinal: reports: No Symptoms Genitourinary: reports: No Symptoms Musculoskeletal: reports: No Symptoms Neurological: reports: No Symptoms Endocrine: reports: No Symptoms Physical Exam Vital Signs: Vital Signs Temperature 98.4 F 06/05/19 06:00 Pulse Rate 76 06/05/19 06:00 Respiratory Rate 20 06/05/19 06:00 Blood Pressure 154/68 06/05/19 06:00 O2 Sat by Pulse Oximetry (%) 98 06/04/19 20:38 Constitutional: Yes: No Distress, Calm Eyes: Yes: Conjunctiva Clear, EOM Intact HENT: Yes: Atraumatic, Normocephalic Neck: Yes: Supple, Trachea Midline Cardiovascular: Yes: Regular Rate and Rhythm Respiratory: Yes: Regular, CTA Bilaterally Gastrointestinal: Yes: Normal Bowel Sounds Musculoskeletal: Yes: WNL Extremities: Yes: WNL Edema: No Neurological: Yes: Alert, Oriented Labs: CBC, BMP 06/04/19 10:08 06/04/19 07:26 Problem List - Problems (1) Hypercalcemia Code(s): E83.52 - HYPERCALCEMIA (2) Sarcoidosis Code(s): D86.9 - SARCOIDOSIS, UNSPECIFIED (3) CKD (chronic kidney disease) Code(s): N18.9 - CHRONIC KIDNEY DISEASE, UNSPECIFIED Qualifiers: Chronic kidney disease stage: stage 3 (moderate) Qualified Code(s): N18.3 - Chronic kidney disease, stage 3 (moderate) (4) Diabetes Code(s): E11.9 - TYPE 2 DIABETES MELLITUS WITHOUT COMPLICATIONS Qualifiers: Diabetes mellitus type: type 2 Assessment/Plan AP: Hypercalcemia Sarcoidosis T2DM HTN CKD ?Cirrhosis of liver: Irregular edge on CT HbA1c 7.3 Ca 9.7 Methylprednisone BGM QACHS Novolog SS coverage Will F/u
[2019-06-05] MEDS: cloNIDine HCL 0.1 MG TABLET PO SCH ×2 (09:43→21:47)
[2019-06-05] MEDS: PANTOPRAZOLE 40 MG TABLET (FP) PO SCH (09:43)
[2019-06-05] MEDS: FERROUS SO4 325 MG TABLET (FP) PO SCH (09:43)
[2019-06-05] MEDS: ALLOPURINOL 100 MG TABLET (FP) PO SCH (09:43)
[2019-06-05] MEDS: HEPARIN NA (PORCINE) 5,000 UNITS/ML 1ML VIAL SQ SCH ×2 (09:44→21:47)
[2019-06-05] MEDS: NEBIVOLOL 10 MG TABLET (FP) PO SCH (09:44)
[2019-06-05] MEDS: LOSARTAN POTASSIUM 50 MG TABLET (FP) PO SCH (09:44)
[2019-06-05] MEDS: methylPREDNISolone 4 MG TABLET PO SCH ×2 (09:45→21:47)
[2019-06-05] MEDS: DORZOLAMIDE 2% HCL OPHTHALMIC SOLUTION 10 ML BOTTLE OD SCH ×2 (09:47→21:48)
[2019-06-05] MEDS: NYSTATIN 100,000 UNIT/GM TOPICAL CREAM 15 GM TUBE TP SCH ×2 (09:47→21:48)
[2019-06-05] MEDS ORDERED: INSULIN (NOVOLOG) ASPART 100 UNITS/ML 10ML VIAL ONE (10:55)
[2019-06-05] MEDS: INSULIN SLIDING SCALE (NOVOLOG) 1 VIAL SQ SCH ×3 (11:05→21:46)
--- NOTE | 2019-06-05 11:44 | PN ---
Progress Note, Physician Chief Complaint: Hypercalcemia History of Present Illness: Previous notes and events reviewed awake and alert NAD Ca 9.4 denies complaints of chest pain or SOB patient started on Medrol BID - Current Medication List Current Medications: Active Medications Allopurinol (Zyloprim -) 100 mg PO DAILY [facility] Last Admin: 06/05/19 09:43 Dose: 100 mg Clonidine (Catapres -) 0.1 mg PO BID [facility] Last Admin: 06/05/19 09:43 Dose: 0.1 mg Dorzolamide HCl (Trusopt 2%) 1 drop OD BID [facility] Last Admin: 06/05/19 09:47 Dose: 1 drop Ferrous Sulfate (Feosol -) 325 mg PO DAILY [facility] Last Admin: 06/05/19 09:43 Dose: 325 mg Heparin Sodium (Porcine) (Heparin -) 5,000 unit SQ BID [facility] Last Admin: 06/05/19 09:44 Dose: 5,000 unit Insulin Aspart (Novolog Vial Sliding Scale -) 1 vial SQ [facility]; Protocol Last Admin: 06/05/19 11:05 Dose: 4 unit Latanoprost (Xalatan 0.005% Eye Drops -) 1 drop OU HS [facility] Last Admin: 06/04/19 21:55 Dose: 1 drop Losartan Potassium (Cozaar -) 100 mg PO DAILY [facility] Last Admin: 06/05/19 09:44 Dose: 100 mg Methylprednisolone (Medrol -) 24 mg PO BID [facility] Last Admin: 06/05/19 09:45 Dose: 24 mg Nebivolol (Bystolic -) 20 mg PO DAILY [facility] Last Admin: 06/05/19 09:44 Dose: 20 mg Nystatin (Mycostatin Cream -) 1 applic TP BID [facility] Last Admin: 06/05/19 09:47 Dose: 1 applic Pantoprazole Sodium (Protonix -) 40 mg PO DAILY [facility] Last Admin: 06/05/19 09:43 Dose: 40 mg - Objective Vital Signs: Vital Signs Temperature 98.4 F 06/05/19 06:00 Pulse Rate 76 06/05/19 06:00 Respiratory Rate 20 06/05/19 06:00 Blood Pressure 154/68 06/05/19 06:00 O2 Sat by Pulse Oximetry (%) 98 06/04/19 20:38 Constitutional: Yes: No Distress, Calm Eyes: Yes: Conjunctiva Clear HENT: Yes: Atraumatic Cardiovascular: Yes: Regular Rate and Rhythm Respiratory: Yes: Regular, CTA Bilaterally Gastrointestinal: Yes: Normal Bowel Sounds, Soft Musculoskeletal: Yes: WNL Extremities: Yes: WNL Edema: No Neurological: Yes: Alert, Oriented Psychiatric: Yes: Alert, Oriented Labs: CBC, BMP 06/04/19 10:08 06/04/19 07:26 INR, PTT INR 1.09 (0.83-1.09) 05/28/19 15:50 Problem List - Problems (1) Hypercalcemia Assessment/Plan: -Ca 9.4 -renal and oncology on board -Metastatic series shows no blastic or lytic changes -pending oncology workup -Bone scan done shows no scintigraphic evidence of osteoblastic metastasis Code(s): E83.52 - HYPERCALCEMIA (2) CKD (chronic kidney disease) Assessment/Plan: -BUN/Cr 38.4/2.0 -renal on board -Renal US shows negative exam Code(s): N18.9 - CHRONIC KIDNEY DISEASE, UNSPECIFIED Qualifiers: Chronic kidney disease stage: stage 3 (moderate) Qualified Code(s): N18.3 - Chronic kidney disease, stage 3 (moderate) (3) Diabetes Assessment/Plan: -BGM ACHS -ISS -diabetic/low Na diet Code(s): E11.9 - TYPE 2 DIABETES MELLITUS WITHOUT COMPLICATIONS Qualifiers: Diabetes mellitus type: type 2 (4) Glaucoma Assessment/Plan: -Azopt Code(s): H40.9 - UNSPECIFIED GLAUCOMA (5) HTN (hypertension) Assessment/Plan: -Clonidine, Bystolic, Losartan -low Na diabetic diet Code(s): I10 - ESSENTIAL (PRIMARY) HYPERTENSION Qualifiers: Hypertension type: secondary to other renal disorders Qualified Code(s): I15.1 - Hypertension secondary to other renal disorders (6) Sarcoidosis Assessment/Plan: -Pulm on board -Medrol BID -repeat CT scan as outpatient and PFTs Code(s): D86.9 - SARCOIDOSIS, UNSPECIFIED Assessment/Plan see problem list dvt ppx d/c home tomorrow if no acute events overnight
--- NOTE | 2019-06-05 11:47 | PN ---
Progress Note (short form) - Note Progress Note: PULMONARY CHART REVIEWED OFFERS NO RESP COMPLAINTS VSS/AFEBRILE Constitutional: Yes: Calm Eyes: Yes: Conjunctiva Clear, EOM Intact HENT: Yes: Atraumatic, Normocephalic Neck: Yes: Supple, Trachea Midline Cardiovascular: Yes: Regular Rate and Rhythm Respiratory: Yes: Regular, Diminished (decreased breath sounds at the bases) ...Clubbing: No Gastrointestinal: Yes: Normal Bowel Sounds, Soft. No: Tenderness Edema: No Neurological: Yes: Alert, Oriented Labs: REVIEWED Chest X-ray: Report Reviewed, Image Reviewed Cat Scan: Report Reviewed, Image Reviewed (bilateral reticulonodular infiltrates ) Hypercalcemia Sarcoidosis Acute on Chronic Renal Failure Liver Cirrhosis HTN DM Hyperlipidemia - low dose prednisone (20mg) - can consider other modalities of treatment if she refuses prednisone - monitor lytes - outpt f/u of chest imaging and PFTs - DVT prophylaxis Froy SWARTZ MD
[2019-06-05 13:48] LABS: ALBUMIN 3.1 g/dl (3.4-5.0); BILIRUBIN,TOTAL 0.2 mg/dL (0.2-1); BLOOD UREA NITROGEN 37.6 mg/dL (7-18); CALCIUM 9.7 mg/dL (8.5-10.1); CREATININE 2.1 mg/dL (0.55-1.3); POTASSIUM 4.8 mmol/L (3.5-5.1); TOT PROT 6.7 g/dl (6.4-8.2)
[2019-06-05] MEDS ORDERED: PT OWN MED DRAWER 7, Y5N ONE ×2 (14:08→21:20)
--- NOTE | 2019-06-05 14:24 | PN ---
Progress Note (short form) - Note Progress Note: RENAL pt is awake and alert comfortable says she does not have any symptoms Last Vital Signs Temp Pulse Resp BP Pulse Ox 97.9 F 66 20 147/75 98 06/05/19 10:00 06/05/19 10:00 06/05/19 10:00 06/05/19 10:00 06/04/19 20:38 lungs clear cvs s1s2 rr abd soft ext no edema neuro a+ox3 CBC, BMP 06/04/19 10:08 06/05/19 12:55 Current Medications Generic Name Dose Route Start Last Admin Trade Name Freq PRN Reason Stop Dose Admin Allopurinol 100 mg 05/29/19 10:00 06/05/19 09:43 Zyloprim - PO 100 mg DAILY NIKI Administration Clonidine 0.1 mg 05/30/19 22:00 06/05/19 09:43 Catapres - PO 0.1 mg BID NIKI Administration Dorzolamide HCl 1 drop 06/01/19 22:00 06/05/19 09:47 Trusopt 2% OD 1 drop BID NIKI Administration Ferrous Sulfate 325 mg 05/29/19 10:00 06/05/19 09:43 Feosol - PO 325 mg DAILY NIKI Administration Heparin Sodium (Porcine) 5,000 unit 05/28/19 22:00 06/05/19 09:44 Heparin - SQ 5,000 unit BID NIKI Administration Insulin Aspart 1 vial 05/28/19 22:00 06/05/19 11:05 Novolog Vial Sliding Scale - SQ 4 unit ACHS NIKI Administration Protocol Latanoprost 1 drop 05/28/19 22:00 06/04/19 21:55 Xalatan 0.005% Eye Drops - OU 1 drop HS NIKI Administration Losartan Potassium 100 mg 05/31/19 10:00 06/05/19 09:44 Cozaar - PO 100 mg DAILY NIKI Administration Methylprednisolone 24 mg 06/04/19 22:00 06/05/19 09:45 Medrol - PO 24 mg BID NIKI Administration Nebivolol 20 mg 05/29/19 10:00 06/05/19 09:44 Bystolic - PO 20 mg DAILY NIKI Administration Nystatin 1 applic 05/30/19 13:15 06/05/19 09:47 Mycostatin Cream - TP 1 applic BID NIKI Administration Pantoprazole Sodium 40 mg 06/05/19 10:00 06/05/19 09:43 Protonix - PO 40 mg DAILY NIKI Administration Impression 1. hypercalcemia with light chain ratios and suppressed pth 2. CKD 3. DM 4. HTN 5. arthritis 6. nephrolithiasis 7. possible sarcoid Plan - heme follow up- ?bone marrow - magda level pending - follow renal workup -continue to monitor MV
--- NOTE | 2019-06-05 17:57 | PN ---
Physical Exam: Heme/ONC SUBJECTIVE: Patient seen and examined. No acute events overnight. has no complaints. OBJECTIVE: Vital Signs Period Temp Pulse Resp BP Sys/Jimenez Pulse Ox Last 24 Hr 97.8 F-98.7 F 66-85 20-20 147-160/66-80 98-99 GENERAL: The patient is awake, alert, and fully oriented, in no acute distress. HEAD: Normal with no signs of trauma. EYES: conjunctiva clear. No ptosis. ENT: oropharynx clear without exudates, moist mucous membranes. NECK: supple. LUNGS: Breath sounds equal, clear to auscultation bilaterally, no wheezes, no crackles HEART: Regular rate and rhythm, S1, S2 without murmur, rub or gallop. ABDOMEN: Soft, nontender, nondistended, normoactive bowel sounds EXTREMITIES: 2+ pulses, warm, well-perfused, no edema. Laboratory Results - last 24 hr 06/01/19 06/04/19 06/05/19 04:00 21:51 06:54 Sodium Potassium Chloride Carbon Dioxide Anion Gap BUN Creatinine Est GFR (CKD-EPI)AfAm Est GFR (CKD-EPI)NonAf POC Glucometer 121 185 Random Glucose Calcium Total Bilirubin AST ALT Alkaline Phosphatase Total Protein Albumin U Free [place] Light Ch 53.80 H U Free [place] Light Ch 6.61 U Free [place]/Lambda 24 8.14 06/05/19 06/05/19 06/05/19 10:59 12:55 16:43 Sodium 138 Potassium 4.8 Chloride 111 H Carbon Dioxide 19 L Anion Gap 8 BUN 37.6 H Creatinine 2.1 H Est GFR (CKD-EPI)AfAm 26.03 Est GFR (CKD-EPI)NonAf 22.46 POC Glucometer 211 194 Random Glucose 265 H Calcium 9.7 Total Bilirubin 0.2 AST 21 ALT 45 Alkaline Phosphatase 73 Total Protein 6.7 Albumin 3.1 L U Free [place] Light Ch U Free [place]ambda Light Ch U Free [place]/Lambda 24 Active Medications Generic Name Dose Route Start Last Admin Trade Name Freq PRN Reason Stop Dose Admin Allopurinol 100 mg 05/29/19 10:00 06/05/19 09:43 Zyloprim - PO 100 mg DAILY NIKI Administration Clonidine 0.1 mg 05/30/19 22:00 06/05/19 09:43 Catapres - PO 0.1 mg BID NIKI Administration Dorzolamide HCl 1 drop 06/01/19 22:00 06/05/19 09:47 Trusopt 2% OD 1 drop BID NIKI Administration Ferrous Sulfate 325 mg 05/29/19 10:00 06/05/19 09:43 Feosol - PO 325 mg DAILY NIKI Administration Heparin Sodium (Porcine) 5,000 unit 05/28/19 22:00 06/05/19 09:44 Heparin - SQ 5,000 unit BID NIKI Administration Insulin Aspart 1 vial 05/28/19 22:00 06/05/19 16:50 Novolog Vial Sliding Scale - SQ 2 unit ACHS NIKI Administration Protocol Latanoprost 1 drop 05/28/19 22:00 06/04/19 21:55 Xalatan 0.005% Eye Drops - OU 1 drop HS NIKI Administration Losartan Potassium 100 mg 05/31/19 10:00 06/05/19 09:44 Cozaar - PO 100 mg DAILY NIKI Administration Methylprednisolone 24 mg 06/04/19 22:00 06/05/19 09:45 Medrol - PO 24 mg BID NIKI Administration Nebivolol 20 mg 05/29/19 10:00 06/05/19 09:44 Bystolic - PO 20 mg DAILY NIKI Administration Nystatin 1 applic 05/30/19 13:15 06/05/19 09:47 Mycostatin Cream - TP 1 applic BID NIKI Administration Pantoprazole Sodium 40 mg 06/05/19 10:00 06/05/19 09:43 Protonix - PO 40 mg DAILY NIKI Administration ASSESSMENT/PLAN: #Hypercalcemia #Sarcoidosis #Hx of Sarcoid on mediasintal node biopsy and liver biopsy 2012 w/ 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 CT scan with reticulondular changes in the lungs/mediasintal adenopathy -Pawan level pending -Medrol started 24mg BID -She was on steroids last 1 year ago, complaints of restlessness while on steroids Visit type - Emergency Visit Emergency Visit: Yes ED Registration Date: 05/28/19 Care time: The patient presented to the Emergency Department on the above date and was hospitalized for further evaluation of their emergent condition. - New Patient This patient is new to me today: Yes Date on this admission: 06/05/19 - Critical Care Critical Care patient: No
--- NOTE | 2019-06-05 19:53 | PN ---
Progress Note (short form) - Note Progress Note: PAtient seen and examined Hypercalcemia improved c/o chronic lower back pain radiating to lower extremities--chronic. Bone scan noted severe degenerative changes and L5-S1 severe facet degenerative changes Last Vital Signs Temp Pulse Resp BP Pulse Ox 97.8 F 78 20 148/66 99 06/05/19 15:10 06/05/19 15:10 06/05/19 15:10 06/05/19 15:10 06/05/19 09:00 Cor: RSR, No murmurs, No gallops Lungs: Clear to P&A Abd: Soft, Normal bowel sounds, No organomegaly Ext:No significant edema Abnormal Lab Results 06/01/19 06/05/19 04:00 12:55 Chloride 111 H Carbon Dioxide 19 L BUN 37.6 H Creatinine 2.1 H Random Glucose 265 H Albumin 3.1 L U Free [place] Light Ch 53.80 H Home Medication List Medication Instructions Recorded Confirmed Type Latanoprost 0.005% Eye Drops 1 drop OU HS 01/11/14 05/28/19 History [Xalatan 0.005% Eye Drops -] Nebivolol HCl [Bystolic] 20 mg PO DAILY 01/11/14 05/28/19 History Brinzolamide [Azopt] 1 drop OD BID 06/29/16 05/28/19 History Clonidine HCl [Clonidine HCl ER] 0.1 mg PO BID 06/29/16 05/28/19 History Valsartan [Diovan] 320 mg PO DAILY 09/17/16 05/28/19 History Allopurinol [Zyloprim -] 100 mg PO DAILY 11/05/18 05/28/19 History Potassium Citrate [Potassium 15 meq PO BID 11/05/18 05/28/19 History Citrate ER] Cholecalciferol (Vitamin D3) 50,000 iu PO DAILY 05/28/19 05/28/19 History [Vitamin D3 -] Ferrous Sulfate 325 mg PO DAILY 05/28/19 05/28/19 History Gabapentin 100 mg PO TID 05/28/19 05/28/19 History Glipizide 10 mg PO DAILY 05/28/19 05/28/19 History Linagliptin [Tradjenta] 5 mg PO DAILY 05/28/19 05/28/19 History Multivitamins [Tab-A-Vit -] 1 tab PO DAILY 05/28/19 05/28/19 History Tramadol HCl 50 mg PO BID PRN 05/28/19 05/28/19 History Active Medications Generic Name Dose Route Start Last Admin Trade Name Joe PRN Reason Stop Dose Admin Allopurinol 100 mg 05/29/19 10:00 06/05/19 09:43 Zyloprim - PO 100 mg DAILY NIKI Administration Clonidine 0.1 mg 05/30/19 22:00 06/05/19 09:43 Catapres - PO 0.1 mg BID NIKI Administration Dorzolamide HCl 1 drop 06/01/19 22:00 06/05/19 09:47 Trusopt 2% OD 1 drop BID NIKI Administration Ferrous Sulfate 325 mg 05/29/19 10:00 06/05/19 09:43 Feosol - PO 325 mg DAILY NIKI Administration Heparin Sodium (Porcine) 5,000 unit 05/28/19 22:00 06/05/19 09:44 Heparin - SQ 5,000 unit BID NIKI Administration Insulin Aspart 1 vial 05/28/19 22:00 06/05/19 16:50 Novolog Vial Sliding Scale - SQ 2 unit ACHS NIKI Administration Protocol Latanoprost 1 drop 05/28/19 22:00 06/04/19 21:55 Xalatan 0.005% Eye Drops - OU 1 drop HS NIKI Administration Losartan Potassium 100 mg 05/31/19 10:00 06/05/19 09:44 Cozaar - PO 100 mg DAILY NIKI Administration Methylprednisolone 24 mg 06/04/19 22:00 06/05/19 09:45 Medrol - PO 24 mg BID NIKI Administration Nebivolol 20 mg 05/29/19 10:00 06/05/19 09:44 Bystolic - PO 20 mg DAILY NIKI Administration Nystatin 1 applic 05/30/19 13:15 06/05/19 09:47 Mycostatin Cream - TP 1 applic BID NIKI Administration Pantoprazole Sodium 40 mg 06/05/19 10:00 06/05/19 09:43 Protonix - PO 40 mg DAILY NIKI Administration A/P 74F with HTN, HLD, DM sent for admission by nephrology for Ca 14.3. (was seeing renal for the first time, creatinine 2.9). Only symptom seemed to be constipation. Creatinine was last 1.6 and calcium 11.8 in 11/2018. On IVF and s /p calcitonin, Calcium 10,5 today Also has normocytic anemia. Normal LDH and protein. PTH suppressed. Metastatic survey without e/o disease. 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 ago -- patient c/o restlessness with prednisone will consider medrol MIKE level Suspect hypercalcemia due to sarcoidosis -- NoM protein on SIFE. Faint band in UIFE --most likely reactive. Bone scan negative. CT scans show reticulonodular changes in the lungs/mediastinal adenopathy. Will start medrol renal insufficiency -- hypercalcemia+ sarcoid + ? retention from neurogenic bladder related to severe L5-S1? radicuolopathy checking PVR discussed with Dr. Smith Lumbar radiculopathy --? neuro consult ? outpatient epidural steroid
[2019-06-05] MEDS: LATANOPROST 0.005% OPHTH SOLN 2.5ML BOTTLE OU SCH (21:48)
[2019-06-06] MEDS: INSULIN SLIDING SCALE (NOVOLOG) 1 VIAL SQ SCH ×2 (06:23→08:02)
[2019-06-06 07:01] LABS: HEMATOCRIT 29.1 % (32.4-45.2); HEMOGLOBIN 9.5 GM/dL (10.7-15.3); MCHC 32.6 g/dl (32.0-36.0); MEAN CELL VOLUME 85.8 fl (80-96); MEAN PLT VOLUME 8.6 fl (7.5-11.1); RBC 3.39 M/mm3 (3.60-5.2); RDW 15.7 % (11.6-15.6); WHITE BLOOD COUNT 10.7 K/mm3 (4.0-10.0)
[2019-06-06 07:27] LABS: ALBUMIN 3.2 g/dl (3.4-5.0); BILIRUBIN,TOTAL 0.3 mg/dL (0.2-1); BLOOD UREA NITROGEN 46.6 mg/dL (7-18); CALCIUM 10.1 mg/dL (8.5-10.1); POTASSIUM 4.8 mmol/L (3.5-5.1); TOT PROT 6.8 g/dl (6.4-8.2)
--- NOTE | 2019-06-06 08:16 | PN ---
Progress Note (short form) - Note Progress Note: In bed eating breakfast Denies any complaints Vital Signs Period Temp Pulse Resp BP Sys/Jimenez Pulse Ox Last 24 Hr 97.8 F-98.5 F 63-78 19-20 147-160/64-83 99-99 PE: AOx3 Neck: Supple No JVD HEENT: EOMI Lungs: CTA CVs: S1S2 Abd: Benign Ext: No edema Neuro: No focal deficit CMP Sodium 139 mmol/L (136-145) 06/06/19 06:12 Potassium 4.8 mmol/L (3.5-5.1) 06/06/19 06:12 Chloride 113 mmol/L (98-107) H 06/06/19 06:12 Carbon Dioxide 20 mmol/L (21-32) L 06/06/19 06:12 Anion Gap 7 MMOL/L (8-16) L 06/06/19 06:12 BUN 46.6 mg/dL (7-18) H 06/06/19 06:12 Creatinine 2.0 mg/dL (0.55-1.3) H 06/06/19 06:12 Est GFR (CKD-EPI)AfAm 27.61 06/06/19 06:12 Est GFR (CKD-EPI)NonAf 23.82 06/06/19 06:12 POC Glucometer 187 UNITS (80-120) 06/06/19 06:21 Random Glucose 208 mg/dL (74-106) H 06/06/19 06:12 Hemoglobin A1c % 7.3 % (4.2-6.3) H 05/29/19 08:45 Serum Osmolality 305 mosm/kg (278-305) 05/29/19 00:05 Calcium 10.1 mg/dL (8.5-10.1) 06/06/19 06:12 Ionized Calcium 7.2 mg/dL (4.5-5.6) H 05/29/19 08:45 Phosphorus 4.3 mg/dL (2.5-4.9) 05/29/19 00:05 Magnesium 2.1 mg/dL (1.8-2.4) 05/29/19 06:00 Total Bilirubin 0.3 mg/dL (0.2-1) 06/06/19 06:12 AST 15 U/L (15-37) 06/06/19 06:12 ALT 42 U/L (13-61) 06/06/19 06:12 Alkaline Phosphatase 68 U/L (45-117) 06/06/19 06:12 LD Total 138 U/L (84-246) 05/30/19 06:40 C-Reactive Protein 0.9 MG/DL (0.00-0.3) H 05/30/19 06:40 Total Protein 6.8 g/dl (6.4-8.2) 06/06/19 06:12 Total Protein (PEP) 6.3 g/dL (6.0-8.5) 05/28/19 08:45 Albumin 3.2 g/dl (3.4-5.0) L 06/06/19 06:12 Albumin % 28.4 % (.) 05/30/19 00:30 Albumin (PEP) 3.1 gm/dl (2.9-4.4) 05/28/19 08:45 Globulin 3.2 g/dL (2.2-3.9) 05/28/19 08:45 Albumin/Globulin Ratio 1.0 (0.7-1.7) 05/28/19 08:45 Bbqtj-5-Usoikfymb (%) 3.5 % (.) 05/30/19 00:30 Fdgiu-1-Budeuycrn (%) 17.8 % (.) 05/30/19 00:30 Beta Globulins 1.1 g/dL (0.7-1.3) 05/30/19 06:40 Beta Globulins (%) 35.7 % (.) 05/30/19 00:30 Gamma Globulins (%) 16.5 % (.) 05/30/19 00:30 M-Lambert % Comment: % (Not Observed) 05/30/19 00:30 25-OH Vitamin D Total 38 ng/mL (.) 05/29/19 08:45 Vit D 1,25-Dihydroxy 117.0 pg/mL (19.9-79.3) H 05/29/19 05:49 25-Hydroxy Vitamin D2 24 ng/mL (.) 05/29/19 08:45 25-Hydroxy Vitamin D3 14 ng/mL (.) 05/29/19 08:45 PTH Intact 12 pg/mL (15-65) L 05/29/19 08:45 PTH Related Protein < 2.0 PG/ML (.) 05/29/19 10:20 Current Medications Generic Name Dose Route Start Last Admin Trade Name Joe PRN Reason Stop Dose Admin Allopurinol 100 mg 05/29/19 10:00 06/05/19 09:43 Zyloprim - PO 100 mg DAILY NIKI Administration Clonidine 0.1 mg 05/30/19 22:00 06/05/19 21:47 Catapres - PO 0.1 mg BID NIKI Administration Dorzolamide HCl 1 drop 06/01/19 22:00 06/05/19 21:48 Trusopt 2% OD 1 drop BID NIKI Administration Ferrous Sulfate 325 mg 05/29/19 10:00 06/05/19 09:43 Feosol - PO 325 mg DAILY NIKI Administration Heparin Sodium (Porcine) 5,000 unit 05/28/19 22:00 06/05/19 21:47 Heparin - SQ 5,000 unit BID NIKI Administration Insulin Aspart 1 vial 05/28/19 22:00 06/06/19 08:02 Novolog Vial Sliding Scale - SQ Not Given ACHS [facility] Protocol Latanoprost 1 drop 05/28/19 22:00 06/05/19 21:48 Xalatan 0.005% Eye Drops - OU 1 drop HS NIKI Administration Losartan Potassium 100 mg 05/31/19 10:00 06/05/19 09:44 Cozaar - PO 100 mg DAILY NIKI Administration Methylprednisolone 24 mg 06/04/19 22:00 06/05/19 21:47 Medrol - PO 24 mg BID NIKI Administration Nebivolol 20 mg 05/29/19 10:00 06/05/19 09:44 Bystolic - PO 20 mg DAILY NIKI Administration Nystatin 1 applic 05/30/19 13:15 06/05/19 21:48 Mycostatin Cream - TP 1 applic BID NIKI Administration Pantoprazole Sodium 40 mg 06/05/19 10:00 06/05/19 09:43 Protonix - PO 40 mg DAILY NIKI Administration AP: Hypercalcemia Sarcoidosis T2DM HTN CKD ?Cirrhosis of liver: Irregular edge on CT HbA1c 7.3 Ca 9.7 Methylprednisone BGM QACHS Increase Novolog SS coverage Will F/u Problem List - Problems (1) Hypercalcemia Code(s): E83.52 - HYPERCALCEMIA (2) Sarcoidosis Code(s): D86.9 - SARCOIDOSIS, UNSPECIFIED (3) CKD (chronic kidney disease) Code(s): N18.9 - CHRONIC KIDNEY DISEASE, UNSPECIFIED Qualifiers: Chronic kidney disease stage: stage 3 (moderate) Qualified Code(s): N18.3 - Chronic kidney disease, stage 3 (moderate) (4) Diabetes Code(s): E11.9 - TYPE 2 DIABETES MELLITUS WITHOUT COMPLICATIONS Qualifiers: Diabetes mellitus type: type 2
[2019-06-06 08:19] LABS: PLATELET COUNT 243 K/MM3 (134-434)
[2019-06-06] MEDS ORDERED: PT OWN MED DRAWER 7, Y5N ONE (09:33)
[2019-06-06] MEDS: PANTOPRAZOLE 40 MG TABLET (FP) PO SCH (09:35)
[2019-06-06] MEDS: cloNIDine HCL 0.1 MG TABLET PO SCH (09:35)
[2019-06-06] MEDS: LOSARTAN POTASSIUM 50 MG TABLET (FP) PO SCH (09:35)
[2019-06-06] MEDS: ALLOPURINOL 100 MG TABLET (FP) PO SCH (09:35)
[2019-06-06] MEDS: NEBIVOLOL 10 MG TABLET (FP) PO SCH (09:36)
[2019-06-06] MEDS: methylPREDNISolone 4 MG TABLET PO SCH (09:36)
[2019-06-06] MEDS: FERROUS SO4 325 MG TABLET (FP) PO SCH (09:36)
[2019-06-06] MEDS: HEPARIN NA (PORCINE) 5,000 UNITS/ML 1ML VIAL SQ SCH (09:37)
[2019-06-06] MEDS: NYSTATIN 100,000 UNIT/GM TOPICAL CREAM 15 GM TUBE TP SCH (09:37)
[2019-06-06] MEDS: DORZOLAMIDE 2% HCL OPHTHALMIC SOLUTION 10 ML BOTTLE OD SCH (09:37)
--- NOTE | 2019-06-06 10:22 | PN ---
Progress Note (short form) - Note Progress Note: PULMONARY VSS/AFEBRILE Constitutional: Yes: Calm Eyes: Yes: Conjunctiva Clear, EOM Intact HENT: Yes: Atraumatic, Normocephalic Neck: Yes: Supple, Trachea Midline Cardiovascular: Yes: Regular Rate and Rhythm Respiratory: Yes: Regular, Diminished (decreased breath sounds at the bases) ...Clubbing: No Gastrointestinal: Yes: Normal Bowel Sounds, Soft. No: Tenderness Edema: No Neurological: Yes: Alert, Oriented Labs: REVIEWED Chest X-ray: Report Reviewed, Image Reviewed Cat Scan: Report Reviewed, Image Reviewed (bilateral reticulonodular infiltrates ) Hypercalcemia Sarcoidosis Acute on Chronic Renal Failure Liver Cirrhosis HTN DM Hyperlipidemia - continue steroids - monitor lytes - outpt f/u of chest imaging and PFTs - DVT prophylaxis Froy SWARTZ MD
--- NOTE | 2019-06-06 10:58 | PN ---
Progress Note (short form) - Note Progress Note: RENAL pt is awake and alert comfortable says she does not have any symptoms does have memory problems Last Vital Signs Temp Pulse Resp BP Pulse Ox 98.5 F 63 20 160/83 99 06/06/19 05:32 06/06/19 05:32 06/06/19 05:32 06/06/19 05:32 06/05/19 21:00 lungs clear cvs s1s2 rr abd soft ext no edema neuro a+ox3 CBC, BMP 06/06/19 06:12 06/06/19 06:12 Current Medications Generic Name Dose Route Start Last Admin Trade Name Joe PRN Reason Stop Dose Admin Allopurinol 100 mg 05/29/19 10:00 06/06/19 09:35 Zyloprim - PO 100 mg DAILY NIKI Administration Clonidine 0.1 mg 05/30/19 22:00 06/06/19 09:35 Catapres - PO 0.1 mg BID NIKI Administration Dorzolamide HCl 1 drop 06/01/19 22:00 06/06/19 09:37 Trusopt 2% OD 1 drop BID NIKI Administration Ferrous Sulfate 325 mg 05/29/19 10:00 06/06/19 09:36 Feosol - PO 325 mg DAILY NIKI Administration Heparin Sodium (Porcine) 5,000 unit 05/28/19 22:00 06/06/19 09:37 Heparin - SQ 5,000 unit BID NIKI Administration Insulin Aspart 0 units 06/06/19 22:00 Novolog SQ HS NIKI Protocol Insulin Aspart 1 vial 06/06/19 11:00 Novolog Vial Sliding Scale - SQ TIDAC NIKI Protocol Latanoprost 1 drop 05/28/19 22:00 06/05/19 21:48 Xalatan 0.005% Eye Drops - OU 1 drop HS NIKI Administration Losartan Potassium 100 mg 05/31/19 10:00 06/06/19 09:35 Cozaar - PO 100 mg DAILY NIKI Administration Methylprednisolone 24 mg 06/04/19 22:00 06/06/19 09:36 Medrol - PO 24 mg BID NIKI Administration Nebivolol 20 mg 05/29/19 10:00 06/06/19 09:36 Bystolic - PO 20 mg DAILY NIKI Administration Nystatin 1 applic 05/30/19 13:15 06/06/19 09:37 Mycostatin Cream - TP 1 applic BID NIKI Administration Pantoprazole Sodium 40 mg 06/05/19 10:00 06/06/19 09:35 Protonix - PO 40 mg DAILY NIKI Administration Impression 1. hypercalcemia with light chain ratios and suppressed pth 2. CKD 3. DM 4. HTN 5. arthritis 6. nephrolithiasis 7. sarcoid by history Plan - steroids may help by reducing vitamin d - magda level pending - follow renal workup -continue to monitor MV
[2019-06-06] MEDS ORDERED: INSULIN SLIDING SCALE (NOVOLOG) 1 VIAL SQ SCH (11:00)
--- NOTE | 2019-06-06 11:13 | PN ---
Progress Note, Physician Chief Complaint: Hypercalcemia History of Present Illness: 74yo female with h/o HTN, DM, hyperlipidemia, sarcoidosis, hypercalcemia who was admitted with hypercalcemia. Currently being worked up including possible bone marrow biopsy to r/o multiple myeloma. 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 She was treated with prednisone by her PMD but did not like/tolerate the side effects. Her calcium is currently improved after IVF and calcitonin. - Current Medication List Current Medications: Active Medications Allopurinol (Zyloprim -) 100 mg PO DAILY [facility] Last Admin: 06/06/19 09:35 Dose: 100 mg Clonidine (Catapres -) 0.1 mg PO BID [facility] Last Admin: 06/06/19 09:35 Dose: 0.1 mg Dorzolamide HCl (Trusopt 2%) 1 drop OD BID [facility] Last Admin: 06/06/19 09:37 Dose: 1 drop Ferrous Sulfate (Feosol -) 325 mg PO DAILY [facility] Last Admin: 06/06/19 09:36 Dose: 325 mg Heparin Sodium (Porcine) (Heparin -) 5,000 unit SQ BID [facility] Last Admin: 06/06/19 09:37 Dose: 5,000 unit Insulin Aspart (Novolog) 0 units SQ HS NIKI; Protocol Insulin Aspart (Novolog Vial Sliding Scale -) 1 vial SQ TIDAC [facility]; Protocol Latanoprost (Xalatan 0.005% Eye Drops -) 1 drop OU HS [facility] Last Admin: 06/05/19 21:48 Dose: 1 drop Losartan Potassium (Cozaar -) 100 mg PO DAILY [facility] Last Admin: 06/06/19 09:35 Dose: 100 mg Methylprednisolone (Medrol -) 24 mg PO BID [facility] Last Admin: 06/06/19 09:36 Dose: 24 mg Nebivolol (Bystolic -) 20 mg PO DAILY [facility] Last Admin: 06/06/19 09:36 Dose: 20 mg Nystatin (Mycostatin Cream -) 1 applic TP BID [facility] Last Admin: 06/06/19 09:37 Dose: 1 applic Pantoprazole Sodium (Protonix -) 40 mg PO DAILY [facility] Last Admin: 06/06/19 09:35 Dose: 40 mg - Objective Vital Signs: Vital Signs Temperature 98.5 F 06/06/19 05:32 Pulse Rate 63 06/06/19 05:32 Respiratory Rate 20 07/06/19 05:32 Blood Pressure 160/83 06/06/19 05:32 O2 Sat by Pulse Oximetry (%) 99 06/05/19 21:00 Constitutional: Yes: Well Nourished, No Distress, Calm Cardiovascular: Yes: Regular Rate and Rhythm Gastrointestinal: Yes: Normal Bowel Sounds, Soft Genitourinary: Yes: WNL Musculoskeletal: Yes: WNL Extremities: Yes: WNL Edema: No Peripheral Pulses WNL: Yes Neurological: Yes: Alert, Oriented Psychiatric: Yes: Alert, Oriented Labs: CBC, BMP 06/06/19 06:12 06/06/19 06:12 INR, PTT INR 1.09 (0.83-1.09) 05/28/19 15:50 Problem List - Problems (1) Sarcoidosis Assessment/Plan: -Seen by Pulmonary -Started medrol 24 mg po BID, taper weekly, directions provided on dc papers Code(s): D86.9 - SARCOIDOSIS, UNSPECIFIED Assessment/Plan (1) Hypercalcemia Assessment/Plan: -Ca 10.1 today -renal and oncology on board -Metastatic series shows no blastic or lytic changes -pending oncology workup -Bone scan done shows no scintigraphic evidence of osteoblastic metastasis -As per oncology- symptoms consistent with sarcoidosis Code(s): E83.52 - HYPERCALCEMIA (2) CKD (chronic kidney disease) Assessment/Plan: -renal on board -Renal US shows negative exam Code(s): N18.9 - CHRONIC KIDNEY DISEASE, UNSPECIFIED Qualifiers: Chronic kidney disease stage: stage 3 (moderate) Qualified Code(s): N18.3 - Chronic kidney disease, stage 3 (moderate) (3) Diabetes Assessment/Plan: -A1c at 7.3 -[facility] -diabetic/low Na diet Code(s): E11.9 - TYPE 2 DIABETES MELLITUS WITHOUT COMPLICATIONS Qualifiers: Diabetes mellitus type: type 2 (4) Glaucoma Assessment/Plan: -Azopt Code(s): H40.9 - UNSPECIFIED GLAUCOMA (5) HTN (hypertension) Assessment/Plan: -Clonidine, Bystolic, Losartan -low Na diabetic diet Code(s): I10 - ESSENTIAL (PRIMARY) HYPERTENSION Qualifiers: Hypertension type: secondary to other renal disorders Qualified Code(s): I15.1 - Hypertension secondary to other renal disorders
--- NOTE | 2019-06-06 11:19 | DS ---
Physical Examination Vital Signs: Vital Signs Temperature 98.5 F 06/06/19 05:32 Pulse Rate 63 06/06/19 05:32 Respiratory Rate 20 06/06/19 05:32 Blood Pressure 160/83 06/06/19 05:32 O2 Sat by Pulse Oximetry (%) 99 06/05/19 21:00 Findings/Remarks: 74 yo woman with hypercalcemia sent in from clinic for evaluation. She has no symptoms and she feels well. She has had hypercalcemia for the last 2 years. Took prednisone rx by Dr. Galarza in the past for suspected- sarcoidosis She was evaluated by oncology, pulmonary and nephrology and confirmed to have sarcoidosis She was started on Medrol PO 24 mg po BID, which needs to b e tapered by 10 mg/ week Constitutional: Yes: Well Nourished, No Distress, Calm Cardiovascular: Yes: Regular Rate and Rhythm Respiratory: Yes: Regular Gastrointestinal: Yes: Normal Bowel Sounds, Soft Musculoskeletal: Yes: WNL Extremities: Yes: WNL Edema: No Peripheral Pulses WNL: Yes Neurological: Yes: Alert, Oriented Psychiatric: Yes: Alert, Oriented Labs: CBC, BMP 06/06/19 06:12 06/06/19 06:12 Discharge Summary Reason For Visit: HYPERCALCEMIA Current Active Problems Bilateral low back pain without sciatica (Acute) Hypercalcemia (Acute) Sarcoidosis (Acute) Hospital Course: Laboratory Last Values WBC 10.7 K/mm3 (4.0-10.0) H 06/06/19 06:12 Corrected WBC (auto) Cancelled 06/04/19 07:26 RBC 3.39 M/mm3 (3.60-5.2) L 06/06/19 06:12 Hgb 9.5 GM/dL (10.7-15.3) L 06/06/19 06:12 Hct 29.1 % (32.4-45.2) L 06/06/19 06:12 MCV 85.8 fl (80-96) 06/06/19 06:12 MCH 28.0 pg (25.7-33.7) 06/06/19 06:12 MCHC 32.6 g/dl (32.0-36.0) 06/06/19 06:12 RDW 15.7 % (11.6-15.6) H 06/06/19 06:12 Plt Count 243 K/MM3 (134-434) 06/06/19 06:12 MPV 8.6 fl (7.5-11.1) 06/06/19 06:12 Absolute Neuts (auto) 2.5 K/mm3 (1.5-8.0) 05/28/19 15:50 Neutrophils % 50.8 % (42.8-82.8) 05/28/19 15:50 Lymphocytes % 28.2 % (8-40) D 05/28/19 15:50 Monocytes % 14.5 % (3.8-10.2) H 05/28/19 15:50 Eosinophils % 5.8 % (0-4.5) H 05/28/19 15:50 Basophils % 0.7 % (0-2.0) 05/28/19 15:50 Nucleated RBC % 0 % (0-0) 05/28/19 15:50 Manual Slide Review Cancelled 06/04/19 07:26 Platelet Comment Cancelled 06/04/19 07:26 ESR 44 mm/hr (0-30) H 05/30/19 06:40 PT with INR 12.90 SEC (9.7-13.0) 05/28/19 15:50 INR 1.09 (0.83-1.09) 05/28/19 15:50 Sodium 139 mmol/L (136-145) 06/06/19 06:12 Potassium 4.8 mmol/L (3.5-5.1) 06/06/19 06:12 Chloride 113 mmol/L (98-107) H 06/06/19 06:12 Carbon Dioxide 20 mmol/L (21-32) L 06/06/19 06:12 Anion Gap 7 MMOL/L (8-16) L 06/06/19 06:12 BUN 46.6 mg/dL (7-18) H 06/06/19 06:12 Creatinine 2.0 mg/dL (0.55-1.3) H 06/06/19 06:12 Est GFR (CKD-EPI)AfAm 27.61 06/06/19 06:12 Est GFR (CKD-EPI)NonAf 23.82 06/06/19 06:12 POC Glucometer 187 UNITS (80-120) 06/06/19 06:21 Random Glucose 208 mg/dL (74-106) H 06/06/19 06:12 Hemoglobin A1c % 7.3 % (4.2-6.3) H 05/29/19 08:45 Serum Osmolality 305 mosm/kg (278-305) 05/29/19 00:05 Calcium 10.1 mg/dL (8.5-10.1) 06/06/19 06:12 Ionized Calcium 7.2 mg/dL (4.5-5.6) H 05/29/19 08:45 Phosphorus 4.3 mg/dL (2.5-4.9) 05/29/19 00:05 Magnesium 2.1 mg/dL (1.8-2.4) 05/29/19 06:00 Total Bilirubin 0.3 mg/dL (0.2-1) 06/06/19 06:12 AST 15 U/L (15-37) 06/06/19 06:12 ALT 42 U/L (13-61) 06/06/19 06:12 Alkaline Phosphatase 68 U/L (45-117) 06/06/19 06:12 LD Total 138 U/L (84-246) 05/30/19 06:40 C-Reactive Protein 0.9 MG/DL (0.00-0.3) H 05/30/19 06:40 Total Protein 6.8 g/dl (6.4-8.2) 06/06/19 06:12 Total Protein (PEP) 6.3 g/dL (6.0-8.5) 05/28/19 08:45 Albumin 3.2 g/dl (3.4-5.0) L 06/06/19 06:12 Albumin % 28.4 % (.) 05/30/19 00:30 Albumin (PEP) 3.1 gm/dl (2.9-4.4) 05/28/19 08:45 Globulin 3.2 g/dL (2.2-3.9) 05/28/19 08:45 Albumin/Globulin Ratio 1.0 (0.7-1.7) 05/28/19 08:45 Mdiig-9-Zutskvqzr (%) 3.5 % (.) 05/30/19 00:30 Uprsu-6-Bqgmjzgrm (%) 17.8 % (.) 05/30/19 00:30 Beta Globulins 1.1 g/dL (0.7-1.3) 05/30/19 06:40 Beta Globulins (%) 35.7 % (.) 05/30/19 00:30 Gamma Globulins (%) 16.5 % (.) 05/30/19 00:30 M-Lambert % Comment: % (Not Observed) 05/30/19 00:30 25-OH Vitamin D Total 38 ng/mL (.) 05/29/19 08:45 Vit D 1,25-Dihydroxy 117.0 pg/mL (19.9-79.3) H 05/29/19 05:49 25-Hydroxy Vitamin D2 24 ng/mL (.) 05/29/19 08:45 25-Hydroxy Vitamin D3 14 ng/mL (.) 05/29/19 08:45 PTH Intact 12 pg/mL (15-65) L 05/29/19 08:45 PTH Related Protein < 2.0 PG/ML (.) 05/29/19 10:20 Urine Color Yellow 05/30/19 13:30 Urine Appearance Clear 05/30/19 13:30 Urine pH 6.5 (5.0-8.0) 05/30/19 13:30 Ur Specific [place] 1.010 (1.010-1.035) 05/30/19 13:30 Urine Protein Trace (NEGATIVE) 05/30/19 13:30 Urine Glucose (UA) Negative (NEGATIVE) 05/30/19 13:30 Urine Ketones Negative (NEGATIVE) 05/30/19 13:30 Urine Blood 3+ (NEGATIVE) H 05/30/19 13:30 Urine Nitrite Negative (NEGATIVE) 05/30/19 13:30 Urine Bilirubin Negative (NEGATIVE) 05/30/19 13:30 Urine Urobilinogen 0.2 mg/dL (0.2-1.0) 05/30/19 13:30 Ur Leukocyte Esterase 1+ (NEGATIVE) H 05/30/19 13:30 Urine WBC (Auto) 6 /hpf (0-5) 05/30/19 13:30 Urine RBC (Auto) 271 /hpf (0-4) 05/30/19 13:30 Urine Casts (Auto) 1 /lpf (0-8) 05/30/19 13:30 U Epithel Cells (Auto) 1.0 /HPF (0-5/HPF) 05/30/19 13:30 Urine Bacteria (Auto) 5.2 /hpf (NEGATIVE) 05/30/19 13:30 Urine Osmolality 281 mosm/kg (300-900) L 05/29/19 00:05 Ur Total Protein 24 Hr 426 mg/24 hr (30-150) H 05/30/19 00:30 Urine Total Protein 9.8 mg/dL (Not Estab.) 05/30/19 00:30 U PEP M-Lambert TNP 05/30/19 00:30 U Free [place] Ch 53.80 mg/L (1.35-24.19) H 06/01/19 04:00 U Free [place] Ch 6.61 mg/L (0.24-6.66) 06/01/19 04:00 U Free [place]/Lambda 24 8.14 (2.04-10.37) 06/01/19 04:00 Urine PEP Interpret 25.5 % (.) 05/30/19 00:30 IgM No Result Required. 05/30/19 06:40 NASIM & SPEP Interp (.) 05/30/19 06:40 Total Protein (NASIM) 6.8 g/dL (6.0-8.5) 05/30/19 06:40 Albumin (NASIM) 3.4 g/dL (2.9-4.4) 05/30/19 06:40 Albumin/Globulin (NASIM) 1.1 (0.7-1.7) 05/30/19 06:40 Bsfdr-2-Rrghcurzn NASIM 0.2 g/dL (0.0-0.4) 05/30/19 06:40 Dgrzb-9-Zrqpoqpqy NASIM 0.8 g/dL (0.4-1.0) 05/30/19 06:40 Gamma Globulins (NASIM) 1.2 g/dL (0.4-1.8) 05/30/19 06:40 NASIM M-Lambert Not observed g/dL (Not Observed) 05/30/19 06:40 NASIM Comments (.) 05/30/19 06:40 Serum NASIM Interpret Comment: (.) 05/30/19 06:40 IEP IgG 1180 mg/dL (700-1600) 05/30/19 06:40 IEP IgA 273 mg/dL (64-422) 05/30/19 06:40 IEP IgM 47 mg/dL (26-217) 05/30/19 06:40 U Random NASIM M-Lambert % Comment: % (Not Observed) 05/30/19 00:30 Ref Test Comments (.) 05/30/19 00:30 Vital Signs Temp 98.5 F 06/06/19 05:32 Pulse 63 06/06/19 05:32 Resp 20 06/06/19 05:32 BP 160/83 06/06/19 05:32 Pulse Ox 99 06/05/19 21:00 Intake & Output 06/05/19 06/05/19 06/06/19 11:59 23:59 11:59 Intake Total 10 40 Balance 10 40 Weight 66.678 kg 67.132 kg Intake: Oral 10 40 Other: Voiding Method Toilet Toilet # Unmeasured Voids [place] 2 Bowel Movement No No Weight Measurement Method Built in Bedscale Built in Bedscale Condition: Stable - Instructions Referrals: Mahesh Nazario MD [Staff Physician] - Teena Hernandez MD [Staff Physician] - Disposition: VNS/HOME HEALTH CARE - Home Medications Comprehensive Discharge Medication List: Ambulatory Orders Latanoprost 0.005% Eye Drops [Xalatan 0.005% Eye Drops -] 1 drop OU HS 01/11/14 Nebivolol HCl [Bystolic] 20 mg PO DAILY 01/11/14 Brinzolamide [Azopt] 1 drop OD BID 06/29/16 Clonidine HCl [Clonidine HCl ER] 0.1 mg PO BID 06/29/16 Valsartan [Diovan] 320 mg PO DAILY 09/17/16 Allopurinol [Zyloprim -] 100 mg PO DAILY 11/05/18 Potassium Citrate [Potassium Citrate ER] 15 meq PO BID 11/05/18 Cholecalciferol (Vitamin D3) [Vitamin D3 -] 50,000 iu PO DAILY 05/28/19 Ferrous Sulfate 325 mg PO DAILY 05/28/19 Gabapentin 100 mg PO TID 05/28/19 Glipizide 10 mg PO DAILY 05/28/19 Linagliptin [Tradjenta] 5 mg PO DAILY 05/28/19 Multivitamins [Tab-A-Vit -] 1 tab PO DAILY 05/28/19 Tramadol HCl 50 mg PO BID PRN 05/28/19
[2019-06-06 11:50] VITALS: BP 158/84; PULSE 59; TEMP 97.7
[2019-06-06] MEDS ORDERED: Insulin (LOG) Aspart 100 UNITS/ML VIAL SQ SCH (22:00)
[2019-06-18 12:10] LABS: FREE KAPPA,SERUM 69.7
== END 2019-06-06 15:43 | disposition home health service (06) | DRG 197 ==
LOC: JER 14:59 → J6S 22:09
PROVIDERS: ADMIT Family Medicine; ATTEND Family Medicine
DX: D86.9 Sarcoidosis, unspecified (principal); N17.9 Acute kidney failure, unspecified; E83.52 Hypercalcemia; D64.9 Anemia, unspecified; N18.3 Chronic kidney disease, stage 3 (moderate); I12.9 Hypertensive chronic kidney disease with stage 1 through stage 4 chronic kidney disease, or unspecified chronic kidney disease; E78.5 Hyperlipidemia, unspecified; E11.22 Type 2 diabetes mellitus with diabetic chronic kidney disease; H40.9 Unspecified glaucoma; M54.5 Low back pain
CPT/HCPCS: 36415; 70480-TC; 71046-TC-FY; 71250-TC; 74176-TC; 76775-TC; 77074-TC-FY; 78306-TC; 80048; 80051; 80053; 81003; 82164; 82306; 82330; 82397; 82652; 82784; 82962; 83036; 83615; 83735; 83883; 83930; 83935; 83970; 84100; 84155; 84156; 84157; 84165; 84166; 85025; 85027; 85610; 85651; 86140; 86334; 93005; 93010; 99283-25; A9503; J0735; J1644; J7030; Q9967